=== PATIENT | female | born 1955 | race Two or more races ===

== ENCOUNTER → 2017-08-04 11:00 | Outpatient (CLI) | payer BC, SELFPAY ==
[2017-08-04 13:25] LABS: Basophils % 0.3 % (0.1-2.0); Eosinophils # 0.2 K/mm3 (0.0-0.4); Eosinophils % 2.2 % (0.1-12.0); Hematocrit 38.6 % (37.0-47.0); Hemoglobin 12.6 g/dL (12.2-16.2); Lymphocytes # 1.8 K/mm3 (0.7-4.5); Lymphocytes % 24.5 K/mm3 (10-50); Mean Corpuscular HGB Conc 32.7 g/dL (31.8-35.4); Mean Corpuscular Hemoglobin 28.6 pg (27.0-31.2); Mean Corpuscular Volume 87.6 fl (81-99); Mean Platelet Volume 8.3 fl (7.4-10.4); Monocytes # 0.4 K/mm3 (0.1-1.0); Monocytes % 5.6 % (1.7-9.3); Neutrophils # 4.9 K/mm3 (1.8-7.8); Neutrophils % 67.4 % (37.0-80.0); Platelet Count 257 K/mm3 (142-424); Red Cell Distribution Width 13.5 % (11.5-17.5); White Blood Count 7.2 K/mm3 (4.8-10.8)
[2017-08-04 13:40] LABS: Alanine Aminotransferase 26 U/L (12-78); Albumin Level 4.1 gm/dL (3.4-5.0); Albumin/Globulin Ratio 1.6 (1.1-1.8); Alkaline Phosphatase 93 U/L (46-116); Amylase 51 U/L (25-125); Anion Gap 10.5 mEq/L (5-15); Aspartate Amino Transferase 18 U/L (15-37); Bilirubin,Total 0.3 mg/dL (0.2-1.0); Blood Urea Nitrogen 18 mg/dL (7-18); C-Reactive Protein 0.3 mg/L (0.0-0.9); Calcium 8.9 mg/dL (8.5-10.1); Carbon Dioxide 29 mmol/L (21.0-32.0); Chloride 106 mmol/L (98-107); Creatinine,Serum 0.61 mg/dL (0.55-1.02); Estimated Glomerular Filt Rate > 60 ml/min (>60); GFR (African American) > 60 ML/MIN (>60); Globulin 2.6 gm/dl (1.3-3.2); Glucose 97 mg/dL (74-106); Lipase 225 u/L (73-393); Potassium 4.5 mmoL/L (3.5-5.1); Sodium 141 mmol/L (136-145); Total Protein,Serum 6.7 gm/dL (6.4-8.2)
[2017-08-04 15:00] LABS: Erythrocyte Sedimentation Rate 12 mm/hr (0-30)
[2017-08-04 15:13] LABS: Microscopic, Urine URINE MICROSCOPIC (MICROSCOPIC)
[2017-08-04 15:17] LABS: Appearance,Urine CLEAR (Clear); Bilirubin,Urine Negative (Negative); Blood, Urine Negative (Negative); Color,Urine YELLOW (Yellow); Glucose,Urine (UA) Negative (Negative); Ketones,Urine Negative (Negative); Leukocyte Esterase,Urine Negative (Negative); Nitrate,Urine Negative (Negative); Protein,Urine Negative (Negative); Urobilinogen,Urine 0.2 EU/dl (0.2)
[2017-08-04 15:25] LABS: Bacteria,Urine 1+ /lpf; Squamous Epithelial Cell,Urine Occasional #/hpf (0-5); WBC,Urine Occasional #/hpf (0-3)
== END ==
PROVIDERS: Visit Provider Emergency Medicine
DX: M54.9 Dorsalgia, unspecified (principal); M54.5 Low back pain; R10.9 Unspecified abdominal pain
CPT/HCPCS: 80053; 81001; 82150; 83690; 85025; 85651; 86140

== ENCOUNTER → 2017-08-19 08:31 | Outpatient (CLI) | payer BC, SELFPAY ==
--- NOTE | 2017-08-19 08:46 | US_ITS ---
US abdomen complete HISTORY: Pain, flank pain ORDERING PHYSICIAN: Florentin Cochran MD PATIENT AGE: 62 years COMPARISON: None FINDINGS: PANCREAS:Unremarkable. No obvious mass or abnormal fluid collection. No ductal dilatation LIVER:No focal liver lesions demonstrated. Homogeneous echogenicity. No intrahepatic biliary ductal dilatation evident RIGHT KIDNEY:Unremarkable. Normal size and echogenicity. No hydronephrosis LEFT KIDNEY:Unremarkable. No hydronephrosis. Normal size and echogenicity. GALLBLADDER:No gallstones, gallbladder wall thickening, pericholecystic fluid, or biliary dilatation. Folds are present in the gallbladder is a normal variant AORTA:No evidence of aneurysmal dilatation. SPLEEN:Unremarkable. Normal size and echogenicity ASCITES:None demonstrated. IMPRESSION: Negative abdominal ultrasound
[2017-08-19 12:21] LABS: Chol/HDL Ratio 3.9 (1-3.5); Cholesterol 279 mg/dL (140-200); HDL Cholesterol 72 mg/dL (29-89); LDL Cholesterol 195 mg/dL (0-130); Triglycerides 61 mg/dL (30-200); VLDL Cholesterol 12 mg/dL (0-40)
== END ==
PROVIDERS: Family Provider Emergency Medicine; PCP Emergency Medicine; Visit Provider Emergency Medicine
DX: Z13.220 Encounter for screening for lipoid disorders (principal); R10.9 Unspecified abdominal pain
CPT/HCPCS: 36415; 76700; 80061

== ENCOUNTER → 2017-09-11 07:36 | Outpatient (CLI) | payer BC, SELFPAY ==
--- NOTE | 2017-09-11 07:37 | XR_ITS ---
XR chest 2V HISTORY: Bilateral rib pain ITS.REASON: rib pain ORDERING PHYSICIAN: Florentin Cochran MD PATIENT AGE: 62 years COMPARISON: 01/24/2016 FINDINGS: The cardiomediastinal silhouette and pulmonary vascularity are within normal limits. The lungs are clear without infiltrates, suspicious nodules, or pleural effusions. There is a calcified granuloma in the right upper lobe No acute bony abnormalities. IMPRESSION: No change with no acute finding
== END ==
PROVIDERS: PCP Emergency Medicine; Visit Provider Emergency Medicine
DX: R07.81 Pleurodynia (principal)
CPT/HCPCS: 71046

== ENCOUNTER → 2017-09-16 07:39 | Outpatient (CLI) | payer BC, SELFPAY ==
--- NOTE | 2017-09-16 07:44 | CT_ITS ---
CT chest wo con HISTORY: Bilateral rib pain, chest pain ORDERING PHYSICIAN: Florentin Cochran MD PATIENT AGE: 62 years TECHNIQUE: Axial images obtained. Sagittal and coronal reformatted images are also generated and reviewed. CONTRAST: None COMPARISON: None FINDINGS: There are few small nodes present in the mediastinum and axilla and consuelo. No dominant adenopathy is evident. Normal heart size. The pericardium is slightly thickened anteriorly. No evidence of aortic aneurysm. Calcified granuloma is present in the right upper lobe. No suspicious pulmonary nodules are apparent. No effusions or infiltrates. No rib fractures or lytic or blastic changes of the ribs evident. No pleural effusion or pleural thickening. There are mild degenerative changes in the thoracic spine. Upper abdominal images are unremarkable. IMPRESSION: 1. There is mild pericardial thickening suggesting a trace pericardial effusion which may be confirmed with echocardiogram. 2. Otherwise negative CT chest without contrast.
== END ==
PROVIDERS: Family Provider Emergency Medicine; PCP Emergency Medicine; Visit Provider Emergency Medicine
DX: R07.81 Pleurodynia (principal)
CPT/HCPCS: 71250

== ENCOUNTER → 2017-09-29 10:33 | Outpatient (CLI) | payer BC, SELFPAY ==
--- NOTE | 2017-09-29 10:36 | CA_ITS ---
PROCEDURE: 2-D M-mode and color Doppler study INDICATIONS FOR THE TEST: Chest pain+ COPD Heart Murmur Tobacco Smoking Palpitations Fatigue Syncope Edema Hypertension Diabetes Mellitus Rheumatic Fever SOB TAYLOR+Obesity Hyperlipidemia+ Family History HD+ Additional History pericardial effusion seen in CT chest PATIENT INFORMATION HEIGHT: 66 WEIGHT: 180 GENDER: Female B/P: 132/87 2-D/M-MODE INTERPRETATION: 2-D MEASUREMENTS OBSERVED VALUES IN CMS Right Ventricular Dimension (RVDd) 2.6 Interventricular Septum (Thickness)(IVsd) 0.9 Left Ventricular Internal Dimensions(LVIDd) 4.8 Left Ventricular Posterior Wall (Thickness)(LVPWd) 0.9 Aortic Root 2.7 Aortic Cusp Separation 2.1 Left Atrial Dimensions (LAD) 2.9 2D 1. Left atrium is mildly enlarged, left ventricle is normal size, visually estimated ejection fraction 50% with no obvious regional wall motion abnormality. 2. The right atrium and right ventricle are mildly enlarged with normal contractility. 3. The aortic valve is minimally thickened and fibrosed. 4. The mitral and tricuspid valve leaflets are minimally thickened. 5. The pulmonic valve is poorly visualized 6. There is trivial pericardial effusion noted. DOPPLER INTERROGATION: Doppler interrogation of the aortic, mitral and tricuspid valvular presence of mild mitral and tricuspid regurgitation, tricuspid regurgitant jet velocity is insufficient for calculation of the right ventricular systolic pressure, grade 1 diastolic dysfunction seen with tissue Doppler evidence of raised left atrial pressure. CONCLUSION: 1. Mild biatrial enlargement, normal left ventricular size, visually estimated ejection fraction 50% with no obvious regional wall motion abnormality. 2. Mildly enlarged right ventricle with normal contractility 3. Grade 1 diastolic dysfunction seen with tissue Doppler evidence of raised left atrial pressure. 4. Mild mitral and tricuspid regurgitation 5. Trivial pericardial effusion noted.
== END ==
PROVIDERS: Family Provider Emergency Medicine; PCP Emergency Medicine; Visit Provider Physician Assistant
DX: I31.3 Pericardial effusion (noninflammatory) (principal)
CPT/HCPCS: 93306

== ENCOUNTER → 2017-10-20 12:04 | Outpatient (POV) | payer BC, SELFPAY | PROVIDERS: Family Provider Emergency Medicine; PCP Emergency Medicine; Visit Provider Nurse Practitioner Acute Care | DX: Z00.00 Encounter for general adult medical examination without abnormal findings (principal) ==

== ENCOUNTER → 2017-10-20 14:29 | Outpatient (POV) | payer BC, SELFPAY ==
[2017-10-20 14:34] VITALS: BP 150/90; PULSE 98; RESP 20; TEMP 36.2; O2SAT 99; BMI 31.4
--- NOTE | 2017-10-20 16:27 | HMH.PAINSOAP ---
[facility] Pain Management SOAP Note Subjective:: Patient is a very pleasant 62-year-old white female who presents today for reevaluation after we started her on gabapentin 300 mg 3 times a day. Patient is doing extremely well with this patient states that it has helped her pain symptoms quite a bit. Patient denies any side effects to this. Patient has pain in her neck radiating down to both arms. She also has myofascial pain and some trigger points palpable on her bilateral trapezius. She also has bilateral knee pain as well as SI joint pain on the right side. 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 Patient rates her pain as 5 out of 10 today. Patient states that she is doing well with her gabapentin. Patient is interested in injective therapies. Patient does have ulcerative colitis which impacts her life greatly. Patient states that her pain is dull and achy at times. ROS General: no recent weight change, no fever, no sleep disturbances Respiratory: no cough, no shortness of air, no recurring pulmonary infections Cardiovascular/Peripheral Vascular: No chest pain, No palpitations, no edema, no shortness of breath. Gastrointestinal: no incontinence, normal bowel movements reported Genitourinary: no incontinence Musculoskeletal: Neck pain, bilateral arm pain, bilateral knee pain, right SI joint pain, myofascial pain Psychiatric: normal mood/ affect, [denies depression], [denies anxiety] Neurological: [denies weakness in extremities], [denies balance issues] Objective:: Physical Exam General: Alert and oriented x3, no acute distress, pleasant and cooperative, [on room air] Lungs: Resps E/U, Symmetrical chest expansion, Eyes: PERRL Musculoskeletal: Flexion and extension of cervical and lumbar spine somewhat guarded secondary to pain, deep tendon reflexes normal, strength in upper and lower extremities [5/5], antalgic gait noted, positive Bharati's test on the right side Neurological: speech clear, 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 I believe that this would be very beneficial for her. Her gabapentin 300 mg 3 times a day. Patient's tried and failed physical therapy along with home stretching exercises. Patient also failed anti-inflammatories and medication. I will follow-up with this patient after her cervical epidural. This note was dictated using voice recognition software and may contain errors or omissions
--- NOTE | 2017-10-20 16:30 | P.CONS_ITS ---
[facility] Pain Management SOAP Note Subjective:: Patient is a very pleasant 62-year-old white female who presents today for reevaluation after we started her on gabapentin 300 mg 3 times a day. Patient is doing extremely well with this patient states that it has helped her pain symptoms quite a bit. Patient denies any side effects to this. Patient has pain in her neck radiating down to both arms. She also has myofascial pain and some trigger points palpable on her bilateral trapezius. She also has bilateral knee pain as well as SI joint pain on the right side. 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 Patient rates her pain as 5 out of 10 today. Patient states that she is doing well with her gabapentin. Patient is interested in injective therapies. Patient does have ulcerative colitis which impacts her life greatly. Patient states that her pain is dull and achy at times. ROS General: no recent weight change, no fever, no sleep disturbances Respiratory: no cough, no shortness of air, no recurring pulmonary infections Cardiovascular/Peripheral Vascular: No chest pain, No palpitations, no edema, no shortness of breath. Gastrointestinal: no incontinence, normal bowel movements reported Genitourinary: no incontinence Musculoskeletal: Neck pain, bilateral arm pain, bilateral knee pain, right SI joint pain, myofascial pain Psychiatric: normal mood/ affect, [denies depression], [denies anxiety] Neurological: [denies weakness in extremities], [denies balance issues] Objective:: Physical Exam General: Alert and oriented x3, no acute distress, pleasant and cooperative, [ on room air] Lungs: Resps E/U, Symmetrical chest expansion, Eyes: PERRL Musculoskeletal: Flexion and extension of cervical and lumbar spine somewhat guarded secondary to pain, deep tendon reflexes normal, strength in upper and lower extremities [5/5], antalgic gait noted, positive Bharati's test on the right side 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 I believe that this would be very beneficial for her. Her gabapentin 300 mg 3 times a day. Patient's tried and failed physical therapy along with home stretching exercises. Patient also failed anti-inflammatories and medication. I will follow-up with this patient after her cervical epidural. This note was dictated using voice recognition software and may contain errors or omissions
--- NOTE | 2018-02-12 08:34 | PC.PHONENOTE ---
called in rx for Gabapentin 300mg TID with 2 refills to [facility]
== END ==
PROVIDERS: Family Provider Emergency Medicine; PCP Emergency Medicine; Visit Provider Clinical Nurse Specialist Family Health
DX: M50.10 Cervical disc disorder with radiculopathy, unspecified cervical region (principal); M25.562 Pain in left knee; M25.561 Pain in right knee
CPT/HCPCS: 99212

== ENCOUNTER → 2017-11-04 13:33 | Outpatient (CLI) | payer BC, SELFPAY ==
--- NOTE | 2017-11-04 13:36 | CT_ITS ---
CT head/brain wo con HISTORY: ITS.REASON: Headaches ORDERING PHYSICIAN: Florentin Cochran MD PATIENT AGE: 62 years COMPARISON: None TECHNIQUE: Axial images obtained without contrast. Brain and bone windows reviewed. All CT scans at the facility use one or more dose reduction, viz: automated exposure control; ma/kV adjustment per patient size (including targeted exams where dose is matched to indication; i.e. head); or iterative reconstruction technique. FINDINGS: No midline shift, mass effect, intracranial hemorrhage, hydrocephalus, or extra-axial fluid collection is evident. The calvarium has an unremarkable appearance. No mastoid effusion. No sinus air-fluid levels.. IMPRESSION: Negative CT head without contrast. No acute finding.
== END ==
PROVIDERS: Family Provider Emergency Medicine; PCP Emergency Medicine; Visit Provider Emergency Medicine
DX: R51 Headache (principal)
CPT/HCPCS: 70450

== ENCOUNTER → 2018-05-18 13:03 | Outpatient (POV) | payer BC, SELFPAY ==
[2018-05-18 13:47] VITALS: BP 131/88; PULSE 100; RESP 18; O2SAT 98; BMI 29.0
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
== END ==
PROVIDERS: Family Provider Emergency Medicine; PCP Emergency Medicine; Visit Provider Clinical Nurse Specialist Family Health
DX: M46.1 Sacroiliitis, not elsewhere classified (principal); M50.10 Cervical disc disorder with radiculopathy, unspecified cervical region; M79.18 Myalgia, other site; M25.562 Pain in left knee; M25.561 Pain in right knee; S32.001A Stable burst fracture of unspecified lumbar vertebra, initial encounter for closed fracture; V89.2XXA Person injured in unspecified motor-vehicle accident, traffic, initial encounter
CPT/HCPCS: 99213

== ENCOUNTER → 2018-05-28 16:27 | Outpatient (CLI) | payer SELFPAY ==
[2018-05-29 16:03] LABS: Amphetamine/Metha Screen,Urine Negative ng/mL (<1000); Barbiturates Screen,Urine Negative ng/mL (<200); Benzodiazepines Screen,Urine Negative ng/mL (<200); Cannabinoid Screen,Urine Negative ng/mL (<50); Cocaine Screen,Urine Negative ng/mL (<300); Methadone Screen,Urine Negative ng/mL (<300); Opiate Screen,Urine Negative ng/mL (<300); Phencyclidine Screen,Urine Negative ng/mL (<25)
[2018-06-03 13:12] LABS: Alprazolam Negative (Cutoff=100); Benzodiazepines Positive ng/mL (Cutoff=100); Clonazepam Positive (.); Flurazepam Negative (Cutoff=100); Lorazepam Negative (Cutoff=100); Midazolam Negative (Cutoff=100); Temazepam Negative (Cutoff=100); Triazolam Negative (Cutoff=100)
[2018-06-03 13:28] LABS: Clonazepam Confirm 412 ng/mL (Cutoff=100)
== END ==
PROVIDERS: PCP Emergency Medicine; Visit Provider Emergency Medicine
DX: Z79.899 Other long term (current) drug therapy (principal)
CPT/HCPCS: 80305; 80346

== ENCOUNTER 2018-06-15 11:00 | Outpatient (RCR) | payer BC, SELFPAY | END 2018-06-15 11:05 | disposition home or self-care (01) | LOC: OT 11:00 | PROVIDERS: Family Provider Emergency Medicine; PCP Emergency Medicine; Visit Provider Orthopaedic Surgery Orthopaedic Trauma | DX: S52.501A Unspecified fracture of the lower end of right radius, initial encounter for closed fracture (principal) | CPT/HCPCS: 97035; 97110; 97140; 97165 ==

== ENCOUNTER → 2018-08-31 10:50 | Outpatient (POV) | payer MEDICARE, BC, SELFPAY ==
[2018-08-31 11:20] VITALS: BP 135/86; PULSE 93; RESP 18; O2SAT 98; BMI 29.0
--- NOTE | 2018-08-31 12:30 | P.CONS_ITS ---
[facility] Pain Management SOAP Note Subjective:: Patient is a pleasant 63-year-old white female who presents today for follow-up. She has recently slipped on the ice agitating her low back and sciatic pain. She is doing well other than this. She is currently on gabapentin 300 mg 1 p.o. 3 times daily she denies side effects medication. She rates her pain today a 6 out of 10. Patient has had epidural injections in the past. She is interested in pursuing when given the exacerbation of pain she recently has had. ROS General: no recent weight change, no fever, no sleep disturbances Respiratory: no cough, no shortness of air, no recurring pulmonary infections Cardiovascular/Peripheral Vascular: No chest pain, No palpitations, no edema, no shortness of breath. Gastrointestinal: no incontinence, normal bowel movements reported Genitourinary: no incontinence Musculoskeletal: Back pain, leg pain Psychiatric: normal mood/ affect Neurological: [denies weakness in extremities], [denies balance issues] Objective:: Physical Exam General: Alert and oriented x3, no acute distress, pleasant and cooperative, [on room air] Lungs: Resps E/U, Symmetrical chest expansion, Eyes: PERRL Musculoskeletal: Flexion and extension of lumbar spine somewhat guarded secondary to pain, deep tendon reflexes normal, strength in upper and lower extremities [5/5], [abnormal gait noted] 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 3 times daily. I will follow-up with the patient after her injection and reassess her symptoms at that time. She is not on any anticoagulation therapy. She continues a home stretching program. Dr. Morales has reviewed this note and agrees with this plan of care. This note was dictated using voice recognition software and may contain errors or omissions
== END ==
PROVIDERS: PCP Emergency Medicine; Visit Provider Clinical Nurse Specialist Family Health
DX: M51.16 Intervertebral disc disorders with radiculopathy, lumbar region (principal); M50.10 Cervical disc disorder with radiculopathy, unspecified cervical region; M79.18 Myalgia, other site; S32.001A Stable burst fracture of unspecified lumbar vertebra, initial encounter for closed fracture
CPT/HCPCS: 99213

== ENCOUNTER → 2018-09-01 14:57 | Outpatient (CLI) | payer MEDICARE, BC, SELFPAY ==
--- NOTE | 2018-09-01 15:00 | XR_ITS ---
XR ankle LT min 3V HISTORY: ITS.REASON: left ankle pain ORDERING PHYSICIAN: Florentin Cochran MD PATIENT AGE: 63 years Comparison: None FINDINGS: There is a mildly displaced oblique fracture involving the distal aspect of the fibula. Fracture exits medially at the level of the ankle joint. There is minimal lateral displacement of the distal fracture fragment by approximately 3 mm. There is overlying soft tissue swelling. Ankle mortise appears very slightly widened IMPRESSION: Mildly displaced oblique fracture of the distal fibula
--- NOTE | 2018-09-01 15:00 | MM_ITS ---
MM Dig screening mamm BI w/CAD ORDERING PHYSICIAN : Florentin Cochran MD PATIENT AGE: 63 years GENDER: Female COMPARISON: June 2015. 2011 Ultrasound right breast January 2016 & June 2015. INDICATION: Routine screening mammogram. No hormones. No new complaints. Noncontributory family history. Previous percutaneous biopsy central left breast . TECHNIQUE: Standard CC and MLO images were obtained. R2 CAD reviewed. Additional axillary cc view bilateral FINDINGS: Moderately dense breast tissue most evident towards upper-outer quadrant of right and left breast. Mammography slightly limited particularly in these areas of increased breast density. There is some Minimal nodularity in these areas of denser breast noted bilaterally. But no definitive or dominant mass. Nonetheless there is some nodularity which would benefit from ultrasound of the breast bilaterally, with attention upper-outer quadrant. . Ultrasound is a useful compliment,/augment to mammography in breast or areas of increased density Particularly since it most likely benign small slight irregular contour nodular density was noted at 9 o'clock position outside [facility] ultrasound studies from 2014, 2015. This warrants ultrasound follow-up & evaluation again at this time.. RIGHT BREAST: No definitive findings. Only question some subtle nodularity in the area of dense breast tissue upper-outer quadrant. Recommend ultrasound to again evaluate this area (. Should be compared to the 2015 and 2014 outside ultrasound) LEFT BREAST: A small area of nodularity there is a dense breast tissue upper-outer quadrant left breast seen on the cc view only. Suspect merely summation of glandular tissue since it dissipates on the axillary cc view, however this area would benefit from ultrasound survey. IMPRESSION: ........... .. Denser breast tissue towards upper-outer quadrant of left breast bilaterally. Mammography appears fairly stable since prior studies with only questionable nodularity in these regions. However Recommend bilateral breast ultrasound to augment mammography in these areas of denser breast (Previous 2015 & 2014 outside ultrasound demonstrated was not appear to be benign solid nodule or semisolid nodule upper outer quadrant left breast. Although felt to be benign, this would benefit from ultrasound follow-up at this time. Should be specifically addressed on this follow-up ultrasound) BI-RADS Category: 0 Need Additional Imaging Evaluation RECOMMENDED FOLLOW-UP: IMM - IMMEDIATE FOLLOW-UP RECOMMENDED Bilateral breast ultrasound (A letter has been sent to the patient regarding results of the study.)
== END ==
PROVIDERS: PCP Emergency Medicine; Visit Provider Emergency Medicine
DX: Z12.31 Encounter for screening mammogram for malignant neoplasm of breast (principal); M25.572 Pain in left ankle and joints of left foot
CPT/HCPCS: 73610; 77067

== ENCOUNTER → 2018-09-02 10:34 | Outpatient (CLI) | payer MEDICARE, BC, SELFPAY ==
[2018-09-02 11:16] LABS: INR 1.01 (0.9-1.1); Prothrombin Time 10.4 seconds (9.4-11.8)
--- NOTE | 2018-09-02 11:25 | XR_ITS ---
XR chest 2V HISTORY: Shortness of air ITS.REASON: SOA ORDERING PHYSICIAN: Florentin Cochran MD PATIENT AGE: 63 years COMPARISON: 09/11/2017 FINDINGS: The cardiomediastinal silhouette and pulmonary vascularity are within normal limits. The lungs are clear without infiltrates, suspicious nodules, or pleural effusions. There is a calcified granuloma in the right upper lobe. There has been interval development of moderate wedging of T6 and T7 with kyphosis IMPRESSION: 1. Wedging of T6 and T7 with kyphosis which has developed since 09/11/2017. 2. Otherwise negative
--- NOTE | 2018-09-02 11:25 | XR_ITS ---
XR foot LT min 3V HISTORY: Lateral foot pain ITS.REASON: POPLITEAL BLOCK ORDERING PHYSICIAN: Florentin Cochran MD PATIENT AGE: 63 years COMPARISON: 2019 FINDINGS: Artifact is present from a overlying wrap. Mildly displaced oblique fracture involves the distal fibula as described in the ankle report. There is a well-circumscribed calcific density at the talonavicular region dorsally and may represent an old avulsion fracture. There is an enthesophyte at the Achilles insertion. No acute foot fracture is evident. IMPRESSION: Distal fibular fracture. No acute foot fracture
[2018-09-02 11:33] LABS: Basophils % 0.3 % (0.1-2.0); Eosinophils # 0.1 K/mm3 (0.0-0.4); Eosinophils % 1.4 % (0.1-12.0); Hematocrit 35.4 % (37.0-47.0); Hemoglobin 11.4 g/dL (12.2-16.2); Lymphocytes # 1.6 K/mm3 (0.7-4.5); Lymphocytes % 25.6 % (10-50); Mean Corpuscular HGB Conc 32.2 g/dL (31.8-35.4); Mean Corpuscular Hemoglobin 28.6 pg (27.0-31.2); Mean Corpuscular Volume 88.8 fl (81-99); Mean Platelet Volume 7.4 fl (7.4-10.4); Monocytes # 0.4 K/mm3 (0.1-1.0); Monocytes % 5.8 % (1.7-9.3); Neutrophils % 66.9 % (37.0-80.0); Platelet Count 238 K/mm3 (142-424); Red Blood Count 3.99 M/mm3 (4.20-5.40); Red Cell Distribution Width 14.2 % (11.5-17.5)
[2018-09-02 12:55] LABS: Alanine Aminotransferase 48 U/L (12-78); Albumin Level 3.9 gm/dL (3.4-5.0); Albumin/Globulin Ratio 1.4 (1.1-1.8); Alkaline Phosphatase 91 U/L (46-116); Anion Gap 13.2 mEq/L (5-15); Aspartate Amino Transferase 23 U/L (15-37); Bilirubin,Total 0.3 mg/dL (0.2-1.0); Blood Urea Nitrogen 12 mg/dL (7-18); Calcium 9.2 mg/dL (8.5-10.1); Carbon Dioxide 29 mmol/L (21.0-32.0); Chloride 106 mmol/L (98-107); Creatinine,Serum 0.73 mg/dL (0.55-1.02); Estimated Glomerular Filt Rate 81 ml/min (>60); GFR (African American) 98 ML/MIN (>60); Globulin 2.7 gm/dl (1.3-3.2); Glucose 107 mg/dL (74-106); Potassium 4.2 mmoL/L (3.5-5.1); Sodium 144 mmol/L (136-145); Total Protein,Serum 6.6 gm/dL (6.4-8.2)
[2018-09-03 09:33] LABS: Vitamin D 25 Hydroxy 55.5 ng/mL (30.0-100.0)
== END ==
PROVIDERS: Visit Provider Emergency Medicine
DX: S22.009A Unspecified fracture of unspecified thoracic vertebra, initial encounter for closed fracture (principal)
CPT/HCPCS: 36415; 71046; 73630; 80053; 82652; 85025; 85610; 93005

== ENCOUNTER → 2018-09-18 13:18 | Outpatient (CLI) | payer MEDICARE, BC, SELFPAY ==
--- NOTE | 2018-09-18 13:19 | US_ITS ---
US breast LT complete INDICATION: Follow-up abnormal mammogram, mammographic asymmetry ORDERING PHYSICIAN: Florentin Cochran MD PATIENT AGE: 63 years COMPARISON: 09/01/2018 TECHNIQUE: Ultrasound left breast performed along with axilla FINDINGS: No cystic or solid abnormalities demonstrated. Small nodes are present in the left axilla.. The asymmetric density noted on the mammogram may be related to fibroglandular tissue. IMPRESSION: No sonographic abnormality evident. Recommend follow-up mammogram of left breast in 6 months for the asymmetric density BI-RADS Category: 3 Probably Benign Finding Short Term Follow-up all RECOMMENDED FOLLOW-UP: 6M - 6 MONTH FOLLOW-UP (A letter has been sent to the patient regarding results of the study.)
--- NOTE | 2018-09-18 13:19 | US_ITS ---
US breast RT complete INDICATION: Follow-up abnormal mammogram and prior abnormal breast ultrasound ORDERING PHYSICIAN: Florentin Cochran MD PATIENT AGE: 63 years COMPARISON: 02/13/2016, 09/01/2018 TECHNIQUE: Right breast ultrasound with axilla FINDINGS: There is a nonspecific subtle area of decreased echogenicity in the 12:00 region of the right breast at 4 x 2 mm. At 6:00 there is a 4 mm hypoechoic nodule in the represent a cyst. At 9:00 there is a 5 x 4 mm hypoechoic nodule. Slightly larger previously measuring 3 x 3 mm. There is some irregularity of the posterior margin however there is enhanced through transmission of sound. This may represent a complex cyst. At 10:00 there is a 13 x 5 mm area of decreased echogenicity possibly related to asymmetric fibroglandular tissue and somewhat elongate on the sagittal image. IMPRESSION: Complex cyst at 9:00 at 5 x 4 mm slightly larger from 02/13/2016. Hypoechoic area 10:00 region of asymmetric fibroglandular tissue. No convincing evidence of malignancy. Recommend 6 month mammographic and sonographic follow-up of the right breast and 6 month mammographic follow-up of left breast for the areas of asymmetric density BI-RADS Category: 3 Probably Benign Finding Short Term Follow-up RECOMMENDED FOLLOW-UP: 6M - 6 MONTH FOLLOW-UP (A letter has been sent to the patient regarding results of the study.)
== END ==
PROVIDERS: PCP Emergency Medicine; Visit Provider Emergency Medicine
DX: R92.8 Other abnormal and inconclusive findings on diagnostic imaging of breast (principal)
CPT/HCPCS: 76641

== ENCOUNTER → 2018-09-21 13:35 | Outpatient (CLI) | payer MEDICARE, BC, SELFPAY ==
--- NOTE | 2018-09-21 13:40 | XR_ITS ---
XR ankle wt bearing LT min 3V HISTORY: Follow-up surgery/ORIF ITS.REASON: post-op ORDERING PHYSICIAN: Gretchen Steinberg DPM PATIENT AGE: 63 years Comparison: 09/04/2018 FINDINGS: Bone plate remains in place stabilizing an oblique distal fibular fracture which is in good alignment. Fracture line is still visible. IMPRESSION: Overall no change good alignment status post ORIF distal fibular fracture
== END ==
PROVIDERS: PCP Emergency Medicine; Visit Provider Podiatrist
DX: Z98.890 Other specified postprocedural states (principal); S82.892D Other fracture of left lower leg, subsequent encounter for closed fracture with routine healing; M25.572 Pain in left ankle and joints of left foot
CPT/HCPCS: 73610

== ENCOUNTER → 2018-10-19 11:02 | Outpatient (CLI) | payer MEDICARE, BC, SELFPAY ==
--- NOTE | 2018-10-19 11:12 | XR_ITS ---
XR ankle wt bearing LT min 3V HISTORY: Follow-up surgery ITS.REASON: post-op ORDERING PHYSICIAN: Florentin Cochran MD PATIENT AGE: 63 years Comparison: 09/21/2018 FINDINGS: The posterior splint has been removed. Lateral bone plate remains in place along the distal fibula. There is good alignment in the previously noted fracture line is less apparent with some overlying callus formation. The superior screw is not felt to be purchased within the bone. IMPRESSION: Good alignment healing distal fibular fracture status post ORIF as described above The superior screw the bone plate does not appear to be purchased within the bone
--- NOTE | 2018-10-19 11:12 | XR_ITS ---
XR DEXA axial skeleton HISTORY: ITS.REASON: screening/ankle rx ORDERING PHYSICIAN: Florentin Cochran MD PATIENT AGE: 63 years COMPARISON: None FINDINGS: The BMD measured at the AP Spine L1-L4 is 1.165 g/cm squared with a T score of -0.1. This is considered Normal according to the World Health Organization criteria. Fracture risk is Low. Treatment is advised. IMPRESSION: Normal bone density with low fracture risk. Suggest follow-up exam September 2020
== END ==
PROVIDERS: PCP Emergency Medicine; Referring Provider Podiatrist; Visit Provider Emergency Medicine
DX: Z98.890 Other specified postprocedural states (principal); S82.892A Other fracture of left lower leg, initial encounter for closed fracture; Z78.0 Asymptomatic menopausal state
CPT/HCPCS: 73610; 77080; 93005

== ENCOUNTER → 2018-11-19 15:06 | Outpatient (CLI) | payer MEDICARE, BC, SELFPAY ==
--- NOTE | 2018-11-19 15:10 | XR_ITS ---
XR ankle wt bearing LT min 3V HISTORY: Follow-up surgery/ORIF/fracture ITS.REASON: post-op ORDERING PHYSICIAN: Gretchen Steinberg DPM PATIENT AGE: 63 years Comparison: 10/19/2018 FINDINGS: There is a lateral bone plate at the distal fibula with good alignment. Fracture lines are not well delineated. There are mild degenerative changes at the ankle joint. On the oblique view there is a small subcortical area of decreased density involving the lateral aspect of the talar dome possibly due to subarticular cyst. Continued follow-up recommended. IMPRESSION: Good alignment status post ORIF distal fibula as described above. Small subcortical lucency of the talar dome laterally which may be due to developing subarticular cyst
== END ==
PROVIDERS: PCP Emergency Medicine; Visit Provider Podiatrist
DX: Z98.890 Other specified postprocedural states (principal)
CPT/HCPCS: 73610

== ENCOUNTER 2018-12-29 10:00 | Outpatient (RCR) | payer MEDICARE, BC, SELFPAY ==
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
== END 2018-12-29 10:05 | disposition home or self-care (01) ==
LOC: PT 10:00
PROVIDERS: Visit Provider Podiatrist
DX: Z98.890 Other specified postprocedural states (principal); S82.892A Other fracture of left lower leg, initial encounter for closed fracture
CPT/HCPCS: 97110; 97140; 97163

== ENCOUNTER → 2019-03-19 12:55 | Outpatient (CLI) | payer MEDICARE, BC, SELFPAY ==
--- NOTE | 2019-03-19 | US_ITS ---
PROCEDURE: MM DIG MAMM BI DX W/CAD RIGHT BREAST ULTRASOUND COMPLETE WITH AXILLA LEFT BREAST ULTRASOUND COMPLETE WITH AXILLA CLINICAL INDICATION: 6 mth f/u due after 03/18/19 COMPARISON: [facility] MM Dig screening mamm BI w/CAD from 09/01/2018 BREASTRT US breast RT complete from 09/18/2018 BREASTLT US breast LT complete from 09/18/2018 US BREAST RT COMPLETE from 03/19/2019 US BREAST LT COMPLETE from 03/19/2019 TECHNIQUE: Standard images obtained along with problem solving views of both breasts and bilateral breast ultrasound FINDINGS: There average to dense fibroglandular tissue. Right breast: There was an asymmetric density in the superior aspect of the right breast which did appear to compress out as fibroglandular tissue. Asymmetric density also noted laterally and centrally on the CC view. These areas also appear to compress out is fibroglandular tissue. Right breast ultrasound: No change in the 4 mm hypoechoic nodule at 12 o'clock. There are some low level internal echoes. Stability favors benign etiology. No change in the 3 mm hypoechoic nodule at 6 o'clock. No change in the 5 mm cyst at 9 o'clock. There is a hypoechoic nodule at 10 o'clock which is oval in nature measuring 13 x 5 mm which is unchanged. As mentioned previously this may even represent fibroglandular tissue having similar imaging characteristics to tissue just superficial to this region. Left breast: Scattered areas of asymmetric density as previously described. A biopsy clip is present in the superior aspect of the left breast as before. There was a 7 mm nodular opacity noted in the superior aspect of the left breast probably unchanged on the spot compression view. No malignant appearing mass or malignant-appearing microcalcification. Left breast ultrasound: Unremarkable. IMPRESSION: Overall no significant change. No convincing evidence of malignancy. Recommend continued six-month follow-up to confirm 1 year stability BI-RAD Category: 2 Benign Finding(s) FOLLOW-UP: 6M 6 Month Follow-up (A letter has been sent to the patient regarding results of the study.) Dictated by: Hayes Muller MD 03/23/2019 08:22 Signed by: <Electronically signed by Hayes Muller MD in [place]> 03/23/2019 08:22
== END ==
PROVIDERS: PCP Emergency Medicine; Visit Provider Emergency Medicine
DX: R92.8 Other abnormal and inconclusive findings on diagnostic imaging of breast; N63.10 Unspecified lump in the right breast, unspecified quadrant; N63.20 Unspecified lump in the left breast, unspecified quadrant
CPT/HCPCS: 76641; 77066

== ENCOUNTER → 2019-08-30 12:36 | Outpatient (POV) | payer MEDICARE, BC, SELFPAY | PROVIDERS: Visit Provider Nurse Practitioner Family | DX: Z00.00 Encounter for general adult medical examination without abnormal findings (principal) ==

== ENCOUNTER → 2019-09-13 06:57 | Outpatient (CLI) | payer MEDICARE, BC, SELFPAY ==
--- NOTE | 2019-09-13 | CA_ITS ---
APPROVED REPORT Exam: Pharmacologic Technologist: liana woody, Ht: 5 ft 6 in Wt: 185 lbs BSA: 1.93 m2 Indications: CP, SOB Medical History Medical History: HTN, Hyperlipidemia Medications: Gabapentin,,,,, ClonAZEPAM,,,,, Lipitor,,,,, Homer,,,,, Tizanidine,,,,, MesALAMINE,,,,, Sertaline,,,,, Allergies: Fluconazole, Azathripine Cardiac Risk Factors: FHX of CAD, HTN, Hyperlipidemia Stress Test Details Test: LEXISCAN HR Resting HR: 68 bpm Max Heart Rate (APMHR): 157 bpm Max HR Achieved: 98 bpm Target HR (85% APMHR): 133 bpm % of APMHR: 62 BP Resting BP: 132/82 mmHg Max BP: 144/77 mmHg ECG Clinical Exercise duration: 04:00 min Highest Stage Achieved: Exercise capacity: 1.0 METs Stress ECG Conclusion Lexiscan completed only pt complaint was headache at peak in fusion resolved in recovery. Pt had occ pvc, less than 1.5mm ST depression. Images to follow Test Summary REST 10:16 . . 68 . 132/ 82 . . Stage 1 01:00 . . 87 . . . . Stage 2 01:00 . . 97 . 136/ 75 . . Stage 3 01:00 . . 93 . 144/ 77 . . Stage 4 01:00 . . 89 . 132/ 80 . Stop exercise at 04:00 RECOVERY 01:00 . . 88 . 133/ 76 . . RECOVERY 02:00 . . 83 . 133/ 84 . . RECOVERY 03:00 . . 79 . 141/ 80 . . RECOVERY 04:00 . . 79 . 135/ 83 . . RECOVERY 04:03 . . 79 . 135/ 83 . . Electronically signed by : Cale Uribe, 09/15/2019 06:58:06
--- NOTE | 2019-09-13 06:57 | NM_ITS ---
APPROVED REPORT Exam: Nuclear Stress Test Indication: Chest pain, SOB, HTN, High cholesterol, Family history Patient Location: Outpatient Stress Tech: China Steele CT Tech:Carlita Chavez, ARRT, RT (R)(N) Ht: 5 ft 6 in Wt: 185 lbs Bra Size: 42C HR: 56 bpm BP: 132/82 mmHg BSA: 1.93 m2 BMI: 29.8 History: Chest pain, SOB, HTN, High cholesterol, Family history Procedure: Patient received a 0.4 mg of intravenous Lexiscan, resting heart rate 56 bpm, resting blood pressure 132/82 mmHg, with Lexiscan maximum heart rate achived was 88 bpm which is Less than 85 % of the maximum predicted heart rate and blood pressure was 133/76 mmHg. With Lexiscan, patient denied any complaint of chest pain. Electrocardiogram Resting electrocardiogram showed sinus rhythm, with Lexiscan there is less than 1.[address] segment depression noted from the baseline EKG. The EKG portion of the Lexiscan Myoview is nondiagnostic. Cardiac Stress and Resting SPECT Images: Cardiac Stress and Resting SPECT images were obtained using technetium 99m Myoview 32.2 mCi stress and 10.26 mCi at rest. Gated SPECT for analysis of segmental wall motion and calculation of the ejection fraction also done. Cardiac stress and resting SPECT images show a fixed defect involving the anteroapical wall with normal contracted gated SPECT is likely secondary to soft tissue attenuation, no reversible ischemia seen. Computer derived ejection fraction is over 65% with no regional wall motion abnormality, right ventricle is normal size and contractility. Conclusion: 1. The EKG portion of the Lexiscan Myoview is nondiagnostic. 2. No scintigraphic evidence of reversible ischemia seen, computer derived ejection fraction is over 65% with no regional wall motion abnormality, right ventricle is normal size and contractility. 3. Likely normal Lexiscan Myoview study. Electronically signed by : Cale Uribe, 09/15/2019 06:59:54
--- NOTE | 2019-09-13 07:45 | HMH.ITSHM ---
Current Home Medications as stated by this patient Lesly Rodas or sales account representative. []TIZANIDINE SERTRALINE OXYCODONE MESALAMINE GABAPENTIN CLONAZEPAM ATORVASTATIN
== END ==
PROVIDERS: PCP Emergency Medicine; Visit Provider Emergency Medicine
DX: I20.9 Angina pectoris, unspecified (principal); R07.89 Other chest pain
CPT/HCPCS: 78451; 93017; A9502; J2785

== ENCOUNTER → 2019-09-30 15:10 | Outpatient (CLI) | payer MEDICARE, BC, SELFPAY ==
--- NOTE | 2019-09-30 15:10 | US_ITS ---
PROCEDURE: MM DIG MAMM BI DX W/CAD Digital Breast Tomosynthesis Included CLINICAL INDICATION: 6 mth f/u due 08/2019 Follow-up abnormal mammogram and ultrasound COMPARISON: [facility] MM Dig screening mamm BI w/CAD from 09/01/2018 MM DIG MAMM BI DX W/CAD from 03/19/2019 US BREAST RT COMPLETE from 03/19/2019 US BREAST LT COMPLETE from 03/19/2019 US BREAST RT COMPLETE from 09/30/2019 US BREAST LT COMPLETE from 09/30/2019 TECHNIQUE: Standard images performed along with 3D tomosynthesis, spot compression views, and bilateral breast FINDINGS: Heterogeneously dense fibroglandular tissue. No malignant appearing mass or malignant-appearing microcalcification. In the central aspect of the right breast there is a well-circumscribed 3-4 mm nodular opacity which may correspond to a cyst noted on the ultrasound. Right breast ultrasound: 3 mm cyst at 12 o'clock, hypoechoic 4 mm nodule at 6 o'clock which may be due to a complex cyst. Nonspecific hypoechoic 6 mm area at 9 o'clock which could be due to a complex cyst or fibroglandular tissue. Previously there was a 13 x 5 mm hypoechoic nodule at 10 o'clock which is not demonstrated on today's exam. Left mammogram: There is a 6 mm nodular opacity in the upper outer aspect of the left breast.. This does not appear significantly changed. This is better demonstrated on the tomographic images. No sonographic correlate. A clip is present in the upper inner aspect of the left breast. Left-sided breast ultrasound. No discrete solid or cystic nodules evident. On the previous exam there was a complex hypoechoic nodule at 2 o'clock at 5 mm. This was not demonstrated on today's exam. Would suggest that the patient come back for second-look ultrasound at the 2 o'clock region of the left breast at no additional charge to confirm a stable nodule at this area. This can be done at the patient's leisure IMPRESSION: Probably benign findings. Nodular density in the upper outer left breast is somewhat better demonstrated on the mammogram possibly due to the technique and 3D tomography but not demonstrated on the ultrasound. Suggest patient come back for a 2nd look at no additional charge. BI-RAD Category: 3 Probably Benign Finding Short Term Follow-up FOLLOW-UP: IMM Immediate Follow-up Recommended (A letter has been sent to the patient regarding results of the study.) Dictated by: Hayes Muller MD 10/01/2019 13:39 Electronically signed by Hayes Muller MD in [place] 10/01/2019 13:39
== END ==
PROVIDERS: PCP Emergency Medicine; Visit Provider Emergency Medicine
DX: R92.8 Other abnormal and inconclusive findings on diagnostic imaging of breast (principal)
CPT/HCPCS: 76641; 77062; 77066; G0279

== ENCOUNTER → 2019-10-06 08:30 | Outpatient (CLI) | payer MEDICARE, BC, SELFPAY ==
--- NOTE | 2019-10-06 08:40 | US_ITS ---
PROCEDURE: REPEAT VIEW US CLINICAL INDICATION: Follow-up left breast nodule, second-look ultrasound COMPARISON: BREASTLT US breast LT complete from 09/18/2018 US BREAST RT COMPLETE from 03/19/2019 US BREAST LT COMPLETE from 03/19/2019 US BREAST RT COMPLETE from 09/30/2019 US BREAST LT COMPLETE from 09/30/2019 FINDINGS: No discrete lesion is evident. There is a ill-defined hypoechoic area at 2 o'clock probably related to fibroglandular tissue. No suspicious mass evident IMPRESSION: Probably benign findings. Would recommend six-month ultrasound and mammographic follow-up of the left breast to confirm continued stability. BI-RADS category 3 probably benign. Recommend six-month left-sided mammographic and sonographic follow-up Dictated by: Hayes Muller MD 10/07/2019 10:13 Electronically signed by Hayes Muller MD in [place] 10/07/2019 10:13
== END ==
PROVIDERS: PCP Emergency Medicine; Visit Provider Emergency Medicine
DX: R92.8 Other abnormal and inconclusive findings on diagnostic imaging of breast (principal)

== ENCOUNTER → 2020-02-09 08:54 | Outpatient (CLI) | payer MEDICARE, BC, SELFPAY ==
--- NOTE | 2020-02-09 09:00 | CA_ITS ---
APPROVED REPORT Steeple Jack: BRENNA Laterality: Bilateral Study Quality: Good Indications: bruit Doppler Spectral Velocity Analysis dICA (R) 151.30/36.30 cm/s dICA (L) 91.90/36.10 cm/s Roopa (R) 117.30/41.70 cm/s Roopa (L) 81.10/31.60 cm/s pICA (R) 89.50/28.60 cm/s pICA (L) 93.40/28.20 cm/s dCCA (R) 132.60/33.20 cm/s dCCA (L) 105.70/35.60 cm/s pCCA (R) 147.70/31.30 cm/s pCCA (L) 143.60/36.80 cm/s Vert (R) 53.50/20.70 cm/s Vert (L) 59.20/22.10 cm/s ICA/CCA 1.10 ICA/CCA 0.90 Findings The right carotid arterial system appeared to be normal without stenosis of the bulb or internal carotid artery. The left carotid arterial system appeared to be normal without stenosis of the bulb or internal carotid artery. Antegrade flow seen bilateral vertebral arteries. Conclusion No increased velocities to suggest hemodynamically significant stenosis in either internal carotid artery. Electronically signed by : Hayes Muller MD 02/09/2020 15:55:45
== END ==
PROVIDERS: PCP Emergency Medicine; Visit Provider Emergency Medicine
DX: R09.89 Other specified symptoms and signs involving the circulatory and respiratory systems (principal)
CPT/HCPCS: 93880

== ENCOUNTER → 2020-05-02 14:08 | Outpatient (CLI) | payer MEDICARE, BC, SELFPAY ==
--- NOTE | 2020-05-02 14:09 | US_ITS ---
PROCEDURE: MM DIG MAMM BI DX W/CAD Digital Breast Tomosynthesis Included CLINICAL INDICATION: abn mamm Follow-up abnormal mammogram COMPARISON: MG [facility] MM Dig screening mamm BI w/CAD from 09/01/2018 MG MM DIG MAMM BI DX W/CAD from 03/19/2019 US US BREAST LT COMPLETE from 03/19/2019 US US BREAST RT COMPLETE from 09/30/2019 MG MM DIG MAMM BI DX W/CAD from 09/30/2019 US US BREAST LT COMPLETE from 09/30/2019 US US BREAST LT COMPLETE from 05/02/2020 US US BREAST RT COMPLETE from 05/02/2020 TECHNIQUE: Standard CC and MLO images and 3D Tomosynthesis was obtained. R2 CAD reviewed. FINDINGS: Average fibroglandular tissue.. Right breast: In the central aspect of the right breast on the tomogram images there is a 4 mm nodular density not significantly changed. Asymmetric fibroglandular tissue noted in the upper outer aspect of the right breast. This is not significantly changed. The nodular density noted in the central aspect of the right breast on the MLO view may be medial and not significantly changed. Right breast ultrasound: There are several hypoechoic benign-appearing nodules and may represent complicated cysts measuring 4 mm at 12 o'clock, 5 mm at 6 o'clock near the nipple, 6 mm at 10 o'clock.. At 10 o'clock there does appear to be 2 small cysts measuring 5 and 3 mm which are not readily demonstrated on the previous study. Left breast: Biopsy clip is present in the superior aspect of the left breast. There is a question of a nodule in the inferior aspect of the left breast on the tomogram images. This area however appears to compress out on the focal spot compression views. Asymmetric density is noted in the medial aspect of the left breast which is not significantly changed and may be due to asymmetric fibroglandular tissue. No sonographic correlate. Benign-appearing nodular opacity present in the lateral aspect of the left breast as seen on the CC view at 5 mm possibly corresponding to 1 of the hypoechoic areas Left breast ultrasound: Several small cysts are once again noted. Hypoechoic area at 2 o'clock is noted at 5 mm not significantly changed from a older study of 03/19/2019 but not demonstrated on the most recent ultrasound of 09/30/2019. At 2 o'clock there is a hypoechoic region measuring 9 mm not readily demonstrated on the previous exam is possibly due to an area of asymmetric fibroglandular tissue. Hypoechoic nodules present 3 o'clock measuring 6 mm. This has enhanced through transmission of sound but increased echogenicity centrally possibly due to a lymph node.. There is enhanced through transmission of sound. A fibroadenoma is an additional consideration. This is wider than tall. No suspicious nodules are demonstrated. IMPRESSION: Probably benign findings. Recommend continued six-month sonographic and mammographic follow-up due to new areas of mild concern. BI-RAD Category: 3 Probably Benign Finding Short Term Follow-up FOLLOW-UP: 6M 6Month Follow-up (A letter has been sent to the patient regarding results of the study.) Dictated by: Hayes Muller MD 05/08/2020 09:23 Hayes Muller MD in [place] 05/08/2020 09:23
== END ==
PROVIDERS: PCP Emergency Medicine; Visit Provider Emergency Medicine
DX: R92.8 Other abnormal and inconclusive findings on diagnostic imaging of breast (principal)
CPT/HCPCS: 76641; 77062; 77066; G0279

== ENCOUNTER → 2020-11-07 12:54 | Outpatient (CLI) | payer MEDICARE, BC, SELFPAY ==
--- NOTE | 2020-11-07 12:54 | US_ITS ---
PROCEDURE: MM DIG MAMM BI DX W/CAD Digital Breast Tomosynthesis Included CLINICAL INDICATION: 6 mth f/u Follow-up abnormal mammogram COMPARISON: MG MM DIG MAMM BI DX W/CAD from 03/19/2019 MG MM DIG MAMM BI DX W/CAD from 09/30/2019 US US BREAST LT COMPLETE from 05/02/2020 US US BREAST RT COMPLETE from 05/02/2020 MG MM DIG MAMM BI DX W/CAD from 05/02/2020 US US BREAST RT COMPLETE from 11/07/2020 US US BREAST LT COMPLETE from 11/07/2020 TECHNIQUE: Standard images obtained with tomography and spot-compression views along with bilateral breast ultrasound FINDINGS: Right breast: No malignant appearing mass or malignant-appearing microcalcification. Asymmetric density once again noted in the medial aspect of the right breast which appears somewhat less prominent on the tomographic images. Right breast ultrasound: Small cyst at 12 o'clock 5 x 4 mm. 5 mm cyst at 6 o'clock. 7 x 3 mm hypoechoic nodule at 10 o'clock unchanged. Additional 7 mm hypoechoic nodule 10 o'clock outer unchanged. Left breast: Average fibroglandular tissue. Biopsy clip in the upper aspect of the left breast. No malignant appearing mass or malignant-appearing microcalcification. Left breast ultrasound: Stable 3 mm hypoechoic nodule at 12 o'clock, 3 mm hypoechoic nodule at 1 o'clock, 4 mm hypoechoic nodule at 2 o'clock. 8 x 4 mm hypoechoic nodule at 3 o'clock. 6 mm hypoechoic nodule at 10 o'clock. No new nodules are evident. IMPRESSION: Stable appearance of the breast both mammographically and sonographically. No convincing evidence of malignancy. BI-RAD Category: 2 Benign Finding(s) FOLLOW-UP: 1YR 1 Year Follow-up. Suggest 1 year follow-up. Would also recommend ultrasound at that time to follow the nodules in both breasts which are not readily apparent mammographically. (A letter has been sent to the patient regarding results of the study.) Dictated by: Hayes Muller MD 11/10/2020 13:52 Hayes Muller MD in [place] 11/10/2020 13:52
== END ==
PROVIDERS: PCP Emergency Medicine; Visit Provider Emergency Medicine
DX: R92.8 Other abnormal and inconclusive findings on diagnostic imaging of breast (principal)
CPT/HCPCS: 76641; 77062; 77066; G0279

== ENCOUNTER → 2021-01-09 08:41 | Outpatient (POV) | payer MEDICARE, BC, SELFPAY | PROVIDERS: Visit Provider Dermatology | DX: Z00.00 Encounter for general adult medical examination without abnormal findings (principal) ==

== ENCOUNTER → 2021-01-23 12:40 | Outpatient (POV) | payer MEDICARE, BC, SELFPAY | PROVIDERS: Visit Provider Dermatology | DX: Z00.00 Encounter for general adult medical examination without abnormal findings (principal) ==

== ENCOUNTER → 2021-08-16 12:17 | Outpatient (CLI) | payer MEDICARE, SELFPAY ==
[2021-08-16 13:35] LABS: Basophils % 0.5 % (0.1-2.0); Eosinophils # 0.1 K/mm3 (0.0-0.4); Eosinophils % 1.1 % (0.1-12.0); Hematocrit 38.5 % (37.0-47.0); Hemoglobin 12.7 g/dL (12.2-16.2); Lymphocytes # 1.9 K/mm3 (0.7-4.5); Lymphocytes % 26.7 % (10-50); Mean Corpuscular HGB Conc 32.9 g/dL (31.8-35.4); Mean Corpuscular Hemoglobin 30.5 pg (27.0-31.2); Mean Corpuscular Volume 92.6 fl (81-99); Mean Platelet Volume 8.3 fl (7.4-10.4); Monocytes # 0.5 K/mm3 (0.1-1.0); Monocytes % 6.9 % (1.7-9.3); Neutrophils # 4.7 K/mm3 (1.8-7.8); Neutrophils % 64.7 % (37.0-80.0); Platelet Count 232 K/mm3 (142-424); Red Blood Count 4.15 M/mm3 (4.20-5.40); Red Cell Distribution Width 14.5 % (11.5-17.5); White Blood Count 7.2 K/mm3 (4.8-10.8)
[2021-08-16 13:42] LABS: Alanine Aminotransferase 29 U/L (12-78); Albumin Level 4.8 g/dl (3.5-5.0); Albumin/Globulin Ratio 2.5 (1.1-1.8); Alkaline Phosphatase 57 U/L (38-126); Anion Gap 11.8 mEq/L (5-15); Aspartate Amino Transferase 31 U/L (14-36); Bilirubin,Total 0.4 mg/dl (0.2-1.3); Blood Urea Nitrogen 22 mg/dl (7-17); Calcium 9.8 mg/dl (8.4-10.2); Carbon Dioxide 32 mmol/L (22.0-30.0); Chloride 99 mmol/L (98-107); Estimated Glomerular Filt Rate 84 ml/min (>60); GFR (African American) 102 ML/MIN (>60); Globulin 1.9 g/dL (1.3-3.2); Glucose 84 mg/dl (74-100); Potassium 4.8 mmoL/L (3.5-5.1); Sodium 138 mmol/L (136-145); Total Protein,Serum 6.7 g/dl (6.3-8.2)
[2021-08-16 13:47] LABS: C-Reactive Protein 0.9 mg/L (0-4)
[2021-08-16 13:59] LABS: 25-OH Vitamin D, Total 55.9 ng/mL (30-100)
[2021-08-16 14:03] LABS: Erythrocyte Sedimentation Rate 17 mm/hr (0-30)
[2021-08-16 14:34] LABS: Vitamin B12 912 pg/mL (239-931)
[2021-08-16 15:10] LABS: Iron 86 ug/dL (37-170)
[2021-08-16 15:19] LABS: Total Iron Binding Capacity 320 ug/dL (265-497)
[2021-08-16 15:46] LABS: Ferritin 43.8 ng/ml (11.1-264)
== END ==
PROVIDERS: PCP Emergency Medicine; Visit Provider Nurse Practitioner Family
DX: K51.90 Ulcerative colitis, unspecified, without complications (principal); E66.3 Overweight; Z68.29 Body mass index [BMI] 29.0-29.9, adult
CPT/HCPCS: 36415; 80053; 82306; 82607; 82728; 83540; 83550; 85025; 85651; 86140

== ENCOUNTER → 2021-11-13 12:41 | Outpatient (CLI) | payer MEDICARE, SELFPAY ==
--- NOTE | 2021-11-13 12:47 | MM_ITS ---
PROCEDURE INFORMATION: Exam: MG Bilateral Screening 3D Mammography Exam date and time: 11/13/2021 12:52 PM Age: 66 years old Clinical indication: Screening examination TECHNIQUE: Imaging protocol: Bilateral Screening tomosynthesis and 2D mammography including computer-aided detection (CAD) when performed. COMPARISON: 1. MG MM DIG MAMM BI DX W/CAD 11/07/2020 1:33 PM 2. MG MM DIG MAMM BI DX W/CAD 05/02/2020 2:13 PM 3. MG MM DIG MAMM BI DX W/CAD 09/30/2019 3:27 PM FINDINGS: MAMMOGRAPHY: Breast composition: The breasts are heterogeneously dense, which may obscure small masses. Mass: No suspicious masses. Architectural distortion: No suspicious distortion. Calcifications: No suspicious calcifications. Asymmetric density: None. Skin thickening: None. Axillary adenopathy: None. IMPRESSION: No mammographic evidence of malignancy. Annual screening is recommended unless otherwise clinically indicated. ASSESSMENT: BI-RADS Category 1: Negative
== END ==
PROVIDERS: PCP Emergency Medicine; Visit Provider Emergency Medicine
DX: Z12.31 Encounter for screening mammogram for malignant neoplasm of breast (principal)
CPT/HCPCS: 77063; 77067

== ENCOUNTER → 2021-11-15 06:23 | Outpatient (CLI) | payer MEDICARE, SELFPAY ==
--- NOTE | 2021-11-15 06:25 | CA_ITS ---
APPROVED REPORT EXAM: Comprehensive 2D, Doppler, and color-flow Echocardiogram Customer Care Manager: Nora Levin RVT Ht: 5 ft 6 in Wt: 184lbs BSA: 1.93 BP: 132/88 mmHg Indications: CP,SOA,HLD 2D Dimensions LVOT 1.92 cm (M/F) 1.5-2.5 LA Volume 32.30 mL LA Volume Index 16.73 mL/m2 (M/F) 16-34 M-Mode Dimensions RVDd 3.47 cm (0.9-2.6) LA Diam 3.61 cm (1.9-4.0) LVDd 3.05 cm (3.5-5.7) Ao Diam 3.03 cm (2.0-3.7) LVDs 1.54 cm (3.5-5.7) IVSd 0.77 cm (0.6-1.1) PWd 1.26 cm (0.6-1.1) EF (Teich) 82.10% FS 49.50% EDV (Teich) 36.40 mL TAPSE 1.90 (<1.7) ESV (Teich) 6.50 mL LV Diastology E Decel Time 190.00 (160-240 msec) E/A Ratio 1.1 MED E' 5.20 (< 7 cm/sec) E'/MED E' Ratio 17.10 (>14) LAT E' 6.80 (<10 cm/sec) E/LAT E' Ratio 13.07 (>14) Aortic Valve AO Peak GR. 3.50 mmHg Mitral Valve MV E Max Mert. 89.00 (40-130 cm/s) MV A Velocity 79.00 (40-130 cm/s) E/A Ratio 1.13 MV Decel. Time 190.00 (160-240 ms) MV PHT 56.00 ms Pulmonary Valve PV Peak Velocity 58.00 (50-150 cm/s) Tricuspid Valve TR P. Velocity 112.00 cm/s RAP Estimate 10.00 mmHg RVSP 15.10 mmHg Left Ventricle Left atrium is moderately enlarged, left ventricle is normal size, mild concentric left ventricular hypertrophy, estimated ejection fraction 55% with no regional wall motion abnormality, grade 2 diastolic dysfunction seen with tissue Doppler evidence of raise left atrial pressure. Right Ventricle Right atrium and right ventricle are mildly enlarged with normal contractility. Aortic Valve Aortic valve is minimally thickened and calcified without aortic stenosis or aortic insufficiency. Mitral Valve Mitral valve is grossly normal, there is trace mitral regurgitation. Tricuspid Valve Tricuspid grossly normal, there is trace tricuspid regurgitation, tricuspid regurgitation jet velocity inadequate for calculation of the right ventricular systolic pressure Pulmonic Valve Pulmonic valve is poorly visualized. Great Vessels Aortic root is normal size. Inferior vena cava is normal size with normal inspiratory collapse. Pericardium Trivial pericardial effusion noted. Conclusion 1. Biatrial enlargement, normal left ventricular size, mild concentric left ventricular hypertrophy, estimated ejection fraction 55% with no regional wall motion abnormality, grade 2 diastolic dysfunction seen with tissue Doppler evidence of raise left atrial pressure. 2. Mildly enlarged right ventricle with normal contractility. 3. Trace mitral and tricuspid regurgitation. 4. Trivial pericardial effusion noted. 5. Inferior vena cava is normal size with normal inspiratory collapse. Electronically signed by : Cale Uribe MD 11/16/2021 11:17:19
--- NOTE | 2021-11-15 06:25 | NM_ITS ---
APPROVED REPORT Exam: Nuclear Stress Test Indication: chest pain Patient Location: Outpatient Stress Tech: Jazmin MORALES Tech:Daysi MckeonMATTHEW RT(R)(N) Ht: 5 ft 6 in Wt: 180 lbs Bra Size: 42c HR: 52 bpm BP: 111/70 mmHg BSA: 1.91 m2 BMI: 29.0 Procedure: Patient exercised on Brennan protocol 8:00 minutes and sec, resting heart rate 52 bpm, resting blood pressure 111/70 mmHg, with exercise maximum heart rate achived was 131 bpm which is 85 % of the maximum predicted heart rate and blood pressure was 178/74 mmHg. Test was stopped due to leg fatigue and soa. Patient denied any complaint of chest pain. Patient has good exercise capacity, achieved 10.1 METs of workload on treadmill, the blood pressure response to exercise was Adequate. Electrocardiogram Resting electrocardiogram shows sinus rhythm, with exercise there is less than 1.[address] segment depression noted from the baseline EKG. The EKG portion of the exercise Myoview is negative for ischemia. Cardiac Stress and Resting SPECT Images: Cardiac Stress and Resting SPECT images were obtained using technetium 99m Myoview 31.4 mCi stress and 10.10 mCi at rest. Gated SPECT for analysis of segmental wall motion and calculation of the ejection fraction also done. Cardiac stress and rest SPECT images show uniform myocardial activity without segmental perfusion abnormality, computer derived ejection fraction is 52% with no regional wall motion abnormality, right ventricle is normal size and contractility. Conclusion: 1. The EKG portion of the exercise Myoview is negative for ischemia, patient has good exercise capacity achieved 10.1 METs of workload on treadmill, the blood pressure response to exercise was adequate, there was no exercise-induced chest discomfort. 2. No scintigraphic evidence of reversible ischemia seen, computer derived ejection fraction is 52% with no regional wall motion abnormality, right ventricle is normal size and contractility. 3. Normal exercise Myoview study. Electronically signed by : Cale Uribe MD 11/16/2021 08:53:38
--- NOTE | 2021-11-15 06:25 | CA_ITS ---
APPROVED REPORT Exam: Exercise Treadmill Technologist: Jazmin Francois, Ht: 5 ft 6 in Wt: 184 lbs BSA: 1.93 m2 HR: 52 bpm BP: 111/70 mmHg Rhythm: sinus cassie, otherwise normal Medical History Medical History: HTN, Hyperlipidemia Medications: Gabapentin,,,,, PERCOCET,,,,, BisOPROLOL Fumarate,,,,, SuLFASALAZINE,,,,, Fluoxetine,,,,, Sertraline,,,,, AtorvaASTATIN,,,,, Garlic,,,,, OmeGA 3,,,,, ClonAZapam,,,,, Cardiac Risk Factors: HTN, Hyperlipidemia Stress Test Details Test: Brennan HR Resting HR: 60 bpm Max Heart Rate (APMHR): 155.886135 bpm Max HR Achieved: 131 bpm Target HR (85% APMHR): 131.442040 bpm % of APMHR: 84.52 Recovery HR: 116 bpm BP Resting BP: 105/75 mmHg Max BP: 178/74 mmHg Recovery BP: 178.0/74.0 mmHg ECG Resting ECG: sinus cassie, otherwise normal Clinical Exercise duration: 08:01 min Highest Stage Achieved: Exercise capacity: 10.1 METs Stress ECG Conclusion Pt exercised total of 8:00 on brennan protocol into stage 3. No CP noted. Frequent isolated PVCs raina bigeminal patterm, occasional PAC. Normal ST response to exercise. No ischemia, EKG chnages but frequent V ectopy in bigeminal pattern. Myoview images reported separately. Test Summary REST . . . . . . . Sitting REST . . . . . . . Standing REST 04:13 0.0 0.0 60 . 105/ 75 . . Stage 1 01:00 10.0 1.7 81 . . . . Stage 1 02:00 10.0 1.7 89 . . . . Stage 1 03:00 10.0 1.7 94 . 142/ 70 . . Stage 2 01:00 12.0 2.5 103 . . . . Stage 2 02:00 12.0 2.5 108 . . . . Stage 2 03:00 12.0 2.5 116 . 160/ 70 . . Stage 3 . . . . . . . Myoview Injected Stage 3 01:00 14.0 3.4 124 . . . . Stage 3 02:00 14.0 3.4 130 . . . . Stage 3 02:01 14.0 3.4 130 . . . Stop exercise at 08:01 RECOVERY 01:00 0.0 0.0 107 . . . . RECOVERY 02:00 0.0 0.0 90 . 178/ 74 . . RECOVERY 03:00 0.0 0.0 75 . 178/ 74 . . RECOVERY 04:00 0.0 0.0 68 . 166/ 76 . . RECOVERY 05:00 0.0 0.0 66 . 145/ 73 . . RECOVERY 06:00 0.0 0.0 69 . 140/ 73 . . RECOVERY 06:31 0.0 0.0 66 . 140/ 73 . . Electronically signed by : Cale Uribe MD 11/16/2021 08:51:32
== END ==
PROVIDERS: PCP Emergency Medicine; Visit Provider Internal Medicine
DX: R07.89 Other chest pain
CPT/HCPCS: 78452; 93017; 93306; A9502

== ENCOUNTER → 2022-09-13 13:15 | Outpatient (CLI) | payer MEDICARE, SELFPAY ==
[2022-09-13 14:21] LABS: Basophils # 0.1 K/mm3 (0-0.2); Basophils % 0.9 % (0.1-2.0); Eosinophils # 0.1 K/mm3 (0.0-0.4); Eosinophils % 1.4 % (0.1-12.0); Hematocrit 36.9 % (37.0-47.0); Hemoglobin 12.5 g/dL (12.2-16.2); Lymphocytes # 1.7 K/mm3 (0.7-4.5); Lymphocytes % 26.9 % (10-50); Mean Corpuscular HGB Conc 33.8 g/dL (31.8-35.4); Mean Corpuscular Hemoglobin 31.6 pg (27.0-31.2); Mean Corpuscular Volume 93.6 fl (81-99); Mean Platelet Volume 8.6 fl (7.4-10.4); Monocytes # 0.5 K/mm3 (0.1-1.0); Monocytes % 7.4 % (1.7-9.3); Neutrophils # 3.9 K/mm3 (1.8-7.8); Neutrophils % 63.3 % (37.0-80.0); Platelet Count 229 K/mm3 (142-424); Red Blood Count 3.95 M/mm3 (4.20-5.40); Red Cell Distribution Width 14.2 % (11.5-17.5); White Blood Count 6.1 K/mm3 (4.8-10.8)
[2022-09-13 15:17] LABS: Alanine Aminotransferase 25 U/L (12-78); Albumin Level 4.7 g/dl (3.5-5.0); Albumin/Globulin Ratio 2.1 (1.1-1.8); Alkaline Phosphatase 64 U/L (38-126); Anion Gap 6.8 mEq/L (5-15); Aspartate Amino Transferase 35 U/L (14-36); Bilirubin,Total 0.4 mg/dl (0.2-1.3); Blood Urea Nitrogen 17 mg/dl (7-17); Calcium 9.3 mg/dl (8.4-10.2); Carbon Dioxide 31 mmol/L (22.0-30.0); Chloride 106 mmol/L (98-107); Chol/HDL Ratio 2.4 (1-3.5); Cholesterol 159 mg/dl (140-200); Estimated Glomerular Filt Rate 84 ml/min (>60); GFR (African American) 101 ML/MIN (>60); Globulin 2.2 g/dL (1.3-3.2); Glucose 99 mg/dl (74-100); HDL Cholesterol 67 mg/dl (40-60); Potassium 4.8 mmoL/L (3.5-5.1); Sodium 139 mmol/L (136-145); Total Protein,Serum 6.9 g/dl (6.3-8.2); Triglycerides 50 mg/dl (30-150); VLDL Cholesterol 10 mg/dL (0-40)
[2022-09-13 15:28] LABS: Direct LDL Cholesterol 68.92 mg/dL (100-129)
[2022-09-13 15:34] LABS: Free T4 (Free Thyroxine) 0.97 ng/dl (0.78-2.19)
[2022-09-13 15:47] LABS: Thyroid Stimulating Hormone 1.22 uIU/mL (0.465-4.68)
[2022-09-27 00:08] LABS: 1,25 Dihydroxy Vitamin D 58 pg/mL (.); 1,25-Dihydroxy, Vitamin D-2 <10 pg/mL (.); 1,25-Dihydroxy, Vitamin D-3 55 pg/mL (.)
== END ==
PROVIDERS: PCP Emergency Medicine; Visit Provider Emergency Medicine
DX: E78.2 Mixed hyperlipidemia (principal); I49.3 Ventricular premature depolarization; M54.32 Sciatica, left side; E66.3 Overweight; Z68.29 Body mass index [BMI] 29.0-29.9, adult
CPT/HCPCS: 36415; 80053; 80061; 82652; 84439; 84443; 85025

== ENCOUNTER → 2022-09-18 14:59 | Outpatient (CLI) | payer MEDICARE, SELFPAY ==
--- NOTE | 2022-09-18 15:05 | XR_ITS ---
FINAL REPORT CLINICAL HISTORY: Pain in leg where she has a Plate FINDINGS: LEFT TIBIA FIBULA 2 views were obtained. There are postoperative changes in the distal fibula. The hardware appears intact. There is no acute fracture or dislocation. There are mild degenerative changes of the knee and ankle. There is no soft tissue abnormality. IMPRESSION: Postoperative change with no acute abnormality identified. Hardware appears intact. Reviewed, Interpreted and Dictated by Tj Gilliam III, MD Transcribed by Anila Banks Authenticated and . [facility]
== END ==
PROVIDERS: PCP Emergency Medicine; Visit Provider Emergency Medicine
DX: M79.605 Pain in left leg (principal)
CPT/HCPCS: 73590

== ENCOUNTER → 2022-09-23 14:43 | Outpatient (CLI) | payer MEDICARE, SELFPAY ==
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
== END ==
PROVIDERS: PCP Emergency Medicine; Visit Provider Emergency Medicine
DX: M54.9 Dorsalgia, unspecified (principal); M54.6 Pain in thoracic spine; M54.50 Low back pain, unspecified
CPT/HCPCS: 72146; 72148; 76376

== ENCOUNTER → 2022-11-22 08:22 | Outpatient (CLI) | payer MEDICARE, SELFPAY ==
--- NOTE | 2022-11-22 08:23 | MM_ITS ---
PROCEDURE INFORMATION: Exam: MG Bilateral Screening 3D Mammography Exam date and time: 11/22/2022 8:16 AM Age: 67 years old Clinical indication: Screening examination TECHNIQUE: Imaging protocol: Bilateral Screening tomosynthesis and 2D mammography including computer-aided detection (CAD) when performed. COMPARISON: 1. MG MM DIG SCREENING MAMM BI W/CAD 11/13/2021 12:52 PM 2. MG MM DIG MAMM BI DX W/CAD 11/07/2020 1:33 PM FINDINGS: MAMMOGRAPHY: Breast composition: The breasts are heterogeneously dense, which may obscure small masses. Mass: None. Architectural distortion: None. Calcifications: No suspicious calcifications. Asymmetric density: None. Skin thickening: None. Axillary adenopathy: None. IMPRESSION: No mammographic evidence of malignancy. Annual screening is recommended unless otherwise clinically indicated. ASSESSMENT: BI-RADS Category 1: Negative
--- NOTE | 2022-11-22 08:23 | XR_ITS ---
FINAL REPORT CLINICAL HISTORY: . post menopausal screening FINDINGS: Using L1-4, the bone mineral density of the spine is 1.049 g/cm2, corresponding to T-score of 0.0. Using the left hip, the bone mineral density of the femoral neck is 0.901 g/cm2, corresponding to a T-score of 0.5. Using the right hip: The bone mineral density of the femoral neck is 0.891 g/cm2, corresponding to a T-score of 0.4. IMPRESSION: Normal bone mineral density of the lumbar spine and hips. NOTE: T-score: Standard deviation compared with peak bone mass of young adult mean. *Following the recommendations of the International Society of Bone densitometry, classification of hip BMD is based on the lower of two T-scores; total hip or femoral neck. Reviewed, Interpreted and Dictated by Tj Gilliam III, MD Transcribed by Gina Ellswroth Authenticated and [facility]
== END ==
PROVIDERS: PCP Emergency Medicine; Visit Provider Emergency Medicine
DX: Z78.0 Asymptomatic menopausal state (principal); Z12.31 Encounter for screening mammogram for malignant neoplasm of breast
CPT/HCPCS: 77063; 77067; 77080

== ENCOUNTER → 2023-03-13 12:38 | Outpatient (POV) | payer MEDICARE, SELFPAY ==
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
[2023-03-13 13:32] VITALS: BP 120/78; PULSE 75; RESP 18; O2SAT 97; BMI 28.8
== END ==
PROVIDERS: PCP Emergency Medicine; Visit Provider Nurse Practitioner Family
DX: M54.50 Low back pain, unspecified; G89.29 Other chronic pain; M79.605 Pain in left leg; M25.551 Pain in right hip; M25.552 Pain in left hip; M51.34 Other intervertebral disc degeneration, thoracic region; M48.062 Spinal stenosis, lumbar region with neurogenic claudication; M51.16 Intervertebral disc disorders with radiculopathy, lumbar region
CPT/HCPCS: 99202; G0463

== ENCOUNTER 2023-04-01 07:37 | Day surgery (SDC) | payer MEDICARE, SELFPAY ==
[2023-04-01 08:03] VITALS: BP 113/68; PULSE 65; RESP 18; TEMP 36.9; O2SAT 97; BMI 25.0
[2023-04-01 08:18] VITALS: BP 116/68; PULSE 66; RESP 18; O2SAT 98
[2023-04-01 08:19] VITALS: BP 116/68; PULSE 66; RESP 18; O2SAT 98
[2023-04-01 08:25] VITALS: BP 115/56; PULSE 65; RESP 18; O2SAT 97
--- NOTE | 2023-04-01 08:38 | P.PCN_ITS ---
Procedure Date: 04/01/23 Time: 08:00 Anesthesiologist:: Brandon Chavez CRNA Complications:: None Pre-procedure Diagnosis:: Degenerative disc disease lumbar spine multilevels. Lumbar radiculopathy. Left hip and leg radicular symptoms. Disc bulge L4-5, L5-S1. Post-procedure Diagnosis:: Same. Indications for Procedure:: Patient is a very pleasant 67-year-old female comes our clinic today for left L4-5, L5-S1 transforaminal epidural steroid injection. I have seen this patient in the past for intralaminar epidural steroid injections at a different facility. She had some moderate improvement in terms of her overall low back pain as well as bilateral hip and leg radicular symptoms. However, her symptoms have isolated to the left hip and leg. She rates her pain 7/10. Procedure Details:: Details of the procedure were explained to the patient. The patient was taken the procedure room placed in the prone position. The area of the lumbar spine was cleansed using chlorhexidine as a cleansing solution. At this time using fluoroscopy guidance markers were placed on the left lateral border of the L4 and L5 vertebral body. The skin and subcutaneous tissue was anesthetized using 1% lidocaine and 25-gauge needle. At this time using a 22-gauge 3-1/2 inch spinal needle the left upper one third of the L4-5 foramen was accessed. The same was done at the right L5-S1 foramen. Needle positions were confirmed and a lateral view using fluoroscopy and contrast dye. At this time 1 cc of 1% lidocaine +20 mg of Depo-Medrol was injected at each level after negative aspiration. Ehrenberg were removed. Band-Aid applied. Patient tolerated the procedure without difficulty. There are no complications. Plan and Disposition:: Patient was discharged without incident.
== END 2023-04-01 08:26 | disposition home or self-care (01) ==
LOC: SC.PAINP 07:39
PROVIDERS: PCP Emergency Medicine; Visit Provider Nurse Anesthetist, Certified Registered
DX: M51.16 Intervertebral disc disorders with radiculopathy, lumbar region (principal)
CPT/HCPCS: 64483; 64484; J1030

== ENCOUNTER 2023-09-18 11:42 | Outpatient (CLI) | payer MEDICARE, SELFPAY ==
--- NOTE | 2023-09-18 11:47 | XR_ITS ---
FINAL REPORT TECHNIQUE: Chest PA & Lateral CLINICAL HISTORY: chest pain COMPARISON: None FINDINGS: 2 views of the chest were performed. The heart size is normal. The mediastinum is within normal limits. There is no acute cardiopulmonary process. There are no pleural effusions. There is no pneumothorax. The bony thorax appears intact. IMPRESSION: No acute cardiopulmonary process. Reviewed, Interpreted and Dictated by Jhoan Fisher MD Transcribed by Destiny Dunham Authenticated and [facility]
== END 2023-09-18 23:59 ==
LOC: RAD 11:44
PROVIDERS: PCP Internal Medicine; Visit Provider Physician Assistant
DX: I51.89 Other ill-defined heart diseases (principal); R07.89 Other chest pain; R53.83 Other fatigue
CPT/HCPCS: 71046

== ENCOUNTER 2023-10-01 13:27 | Outpatient (CLI) | payer MEDICARE, SELFPAY ==
--- NOTE | 2023-10-01 13:28 | CA_ITS ---
APPROVED REPORT EXAM: Comprehensive 2D, Doppler, and color-flow Echocardiogram Riding Coach: ABDOULAYE Nassar, RVS Ht: 5 ft 6 in Wt: 153lbs BSA: 1.78 BP: 119/77 mmHg Rhythm: Bradycardia Indications: CP, PVC's, Fatigue, Diastolic dysfunction, Patient experienced Chest pain during exam that did resolve 2D Dimensions IVSd 0.96 cm F: 0.6-1.0 LVEF (Visual) 38.40 % PWd 0.99 cm F: 0.6 - 1.0 LA Volume 91.30 mL LVDd 4.55 cm F: 3.9 - 5.3 LA Volume Index 51.384620 mL/m2 (M/F) 16-34 LVDs 3.71 cm F: 2.2 - 3.5 EF AP4 62.70 % Aortic Root 2.79 cm F: 2.7 - 3.3 GL Strain -21.4 % Left Atrium 3.08 cm F: 2.7 - 3.8 RVID Base (AP4) 3.02 cm (M/F) 2.5-4.1 LVOT 1.84 cm (M/F) 1.5-2.5 M-Mode Dimensions RVDd 1.68 cm (0.9-2.6) LVDd 4.55 cm (3.5-5.7) Ao Diam 3.12 cm (2.0-3.7) LVDs 3.71 cm (3.5-5.7) IVSd 0.68 cm (0.6-1.1) PWd 0.82 cm (0.6-1.1) EPSs 0.90 cm FS 18.50% EDV (Teich) 184.80 mL TAPSE 2.19 (<1.7) LV Diastology E Decel Time 250 (160-240 msec) E/A Ratio 1.09 MED E' 6.2 (>= 7 cm/sec) MED A' 8.90 cm/s E'/MED E' Ratio 15.52 (<= 14) LAT E' 8.8 (>= 10 cm/sec) LAT A' 10.50 cm/s E/LAT E' Ratio 10.93 (<= 14) Aortic Valve LVOT Max 95.0 (70-110 cm/s) MARLO Index 0.97 cm2/m2 LVOT VTI 22.61 cm AoV Peak Mert. 137.0 (50-130 cm/s) AI PHT 539.00 ms AO Mean GR. 3.80 (<5 mmHg) AO VTI 34.8 (18-25 cm) MARLO (VTI) 1.73 (2.5-4.5 cm2) Mitral Valve MV E Max Mert. 96.0 (40-130 cm/s) MV A Velocity 88.0 (40-130 cm/s) E/A Ratio 1.09 MV Decel. Time 250 (160-240 ms) Pulmonary Valve SD End VMAX 159.0 cm/s Tricuspid Valve TR P. Velocity 227.00 cm/s RAP Estimate 10.00 mmHg RVSP 30.70 mmHg Left Ventricle The left ventricle is normal size. The left ventricular systolic function is normal. The left ventricular ejection fraction is within the normal range. Proximal septal thickening is noted. There is normal LV segmental wall motion. The left ventricular diastolic function is normal. LVEF is 55%. Right Ventricle The right ventricle is normal size. The right ventricular systolic function is normal. Atria Left atrium is moderately dilated. Right atrium is mildly dilated. There is no Doppler evidence of interatrial shunt. Aortic Valve The aortic valve opens well. There is no aortic valvular stenosis. Trace aortic regurgitation. Mitral Valve The mitral valve leaflets are mildly thickened. No evidence of mitral valve stenosis. Mild mitral regurgitation. Tricuspid Valve The tricuspid valve leaflets are thin and pliable. Trace tricuspid regurgitation. There is insufficient TR jet to estimate RVSP. Pulmonic Valve The pulmonary valve is normal in structure. Trace pulmonic regurgitation. Great Vessels The aortic root is normal in size. The ascending aorta is not well-visualized. IVC is normal in size and collapses >50% with inspiration. Pericardium There is no pericardial effusion. Other Information Study Quality: Fair Conclusion Normal biventricular systolic function. Biatrial dilation. Mild MR. Electronically signed by : Milla Rose MD 10/04/2023 23:09:57
== END 2023-10-01 23:59 ==
LOC: RT 13:28
PROVIDERS: PCP Internal Medicine; Visit Provider Physician Assistant
DX: R53.83 Other fatigue (principal); R07.89 Other chest pain; I51.89 Other ill-defined heart diseases
CPT/HCPCS: 93306

== ENCOUNTER 2023-11-05 07:08 | Outpatient (CLI) | payer MEDICARE, SELFPAY ==
--- NOTE | 2023-11-05 | CA_ITS ---
APPROVED REPORT Exam: Exercise Treadmill Technologist: Domi Dhaliwal Ht: 5 ft 6 in Wt: 152 lbs BSA: 1.78 m2 HR: 61 bpm BP: 132/84 mmHg Rhythm: NSR Indications: Chest pain, Abnormal echo Medical History Medications: Atorvastatin,,,,, BisOPROLOL,,,,, AmiTRIPTYLINE,,,,, SuLFASALAZINE,,,,, Fluoxetine,,,,, Garlic,,,,, Stress Test Details Test: Brennan HR Resting HR: 71 bpm Max Heart Rate (APMHR): 153 bpm Max HR Achieved: 138 bpm Target HR (85% APMHR): 130 bpm % of APMHR: 90 Recovery HR: 68 bpm HR response to stress: Normal HR response to stress BP Resting BP: 132.0/84.0 mmHg Max BP: 164.0/64.0 mmHg Recovery BP: 128.0/66.0 mmHg BP response to stress: Normal blood pressure response to stress. ECG Resting ECG: Normal sinus rhythm Stress ECG: < 0.[address] depression Arrhythmia: PVCs, 1 ventricular couplet Recovery ECG: Return to baseline within 3 minutes of recovery Recovery Arrhythmia: None Clinical Exercise duration: 07:09 min Highest Stage Achieved: Exercise capacity: 10.1 METs Overall Exercise Capacity for Age: Average Stress ECG Conclusion The patient was able to exercise for a total of 7 minutes, 09 seconds. She achieved a total of 10.1 METS. She has average exercise capacity compared to age and sex matched peers. She has normal HR and BP response to exercise. Symptoms: No chest pain. Arrhythmias/Ectopy: PVCs, ventricular couplet ST-T Changes: 0.[address] depression Conclusion: Within normal GXT. Stress Echo images reported separately. Test Summary REST . . . . . . . Sitting REST . . . . . . . Standing REST 02:40 0.0 0.0 71 . 132/ 84 . . Stage 1 01:00 10.0 1.7 87 . . . . Stage 1 02:00 10.0 1.7 94 . . . . Stage 1 03:00 10.0 1.7 99 . 148/ 64 . . Stage 2 01:00 12.0 2.5 107 . . . . Stage 2 02:00 12.0 2.5 116 . . . . Stage 2 03:00 12.0 2.5 121 . 164/ 64 . . Stage 3 01:00 14.0 3.4 136 . . . . Stage 3 01:09 14.0 0.9 138 . . . Stop exercise at 07:09 RECOVERY 01:00 0.0 0.0 114 . . . . RECOVERY 02:00 0.0 0.0 90 . . . . RECOVERY 03:00 0.0 0.0 76 . . . . RECOVERY 04:00 0.0 0.0 70 . . . . RECOVERY 05:00 0.0 0.0 66 . . . . RECOVERY 05:25 0.0 0.0 66 . 128/ 66 . . Electronically signed by : Milla Rose MD 11/08/2023 01:04:07
--- NOTE | 2023-11-05 07:08 | CT_ITS ---
FINAL REPORT TECHNIQUE: Axial CT images were performed from the lung apices through the upper abdomen. Coronal reformats were submitted. This study was performed with techniques to keep radiation doses as low as reasonably achievable (ALARA). Individualized dose reduction techniques using automated exposure control or adjustment of mA and/or kV according to the patient's size were employed. CLINICAL HISTORY: cp/dyspnea. FINDINGS: There is no axillary adenopathy. There is no hilar or mediastinal mass or adenopathy. Heart size is normal. There is no pericardial or pleural effusion. Limited images of the upper abdomen are unremarkable. Note is made of mild scarring. There is a calcified granuloma in the right upper lobe. There is a 4 mm medial right lower lobe nodule well seen on image 146. The osseous structures demonstrate chronic T6 and T7 compression fractures with partial fusion. There are moderate degenerative changes of the thoracic spine. IMPRESSION: Right lower lobe nodule measures 4 mm. Consider follow-up in 12 months. Reviewed, Interpreted and Dictated by Tj Gilliam III, MD Transcribed by Tiana Sunshine Authenticated and [facility]
--- NOTE | 2023-11-05 07:41 | CA_ITS ---
APPROVED REPORT EXAM: Comprehensive 2D, Doppler, and color-flow Echocardiogram Traveling Phlebotomist: Nora Levin RVT Ht: 5 ft 6 in Wt: 153lbs BSA: 1.78 BP: 119/77 mmHg Indications: EVALUATE LVOT WITH EXCERCISE,SEPTAL THICKENING SEEN ON TTE,CP,SOA Stress Test Details HR Resting HR: 78 bpm Max Heart Rate (APMHR): 153 bpm Max HR Achieved: 138 bpm Target HR (85% APMHR): 130 bpm % of APMHR: 90 Recovery HR: 68 bpm BP Resting BP: 132/64 mmHg Max BP: 168/68 mmHg ECG Resting ECG: Normal sinus rhythm, PVCs Stress ECG: < 0.[address] depression Arrhythmia: PVCs, 1 ventricular couplet Recovery ECG: Return to baseline within 3 minutes of recovery Recovery Arrhythmia: PVCs Clinical Exercise duration: 7.00 min Exercise capacity: 10.1 METs Overall Exercise Capacity for Age: Average Echo Findings The Pre-Stress Echocardiogram showed normal left ventricular contractility with an estimated Ejection Fraction of about 5%. Pre-stress echocardiogram demonstrated normal mitral valve mobility with no evidence of NATALIYA. There is no evidence of LVOT gradient at rest. The Post-Stress Echocardiogram showed normal left ventricular contractility with an estimated Ejection Fraction of about 65%. Poststress echocardiogram demonstrated no provokable LVOT gradient at peak exercise. Other Information Study Quality: Adequate Conclusion Average exercise capacity. Good LV augmentation at peak stress. No evidence of NATALIYA. No resting or provocable LVOT gradient at peak stress. Electronically signed by : Milla Rose MD 11/08/2023 01:08:59
== END 2023-11-05 23:59 ==
LOC: RAD 07:08
PROVIDERS: PCP Internal Medicine; Visit Provider Physician Assistant
DX: R93.1 Abnormal findings on diagnostic imaging of heart and coronary circulation (principal); R53.83 Other fatigue; R42 Dizziness and giddiness; R07.89 Other chest pain; I51.89 Other ill-defined heart diseases; E78.2 Mixed hyperlipidemia; R06.00 Dyspnea, unspecified
CPT/HCPCS: 71250; 93017; 93018; 93350

== ENCOUNTER 2023-12-03 09:59 | Outpatient (CLI) | payer MEDICARE, SELFPAY ==
--- NOTE | 2023-12-03 10:04 | CA_ITS ---
FINAL REPORT TECHNIQUE: Color Doppler, duplex Doppler and newman scale sonography of the bilateral neck vasculature was performed. Velocities were measured in the carotid arteries. Stenosis evaluation based on velocity criteria. CLINICAL HISTORY: BRUIT,HTN COMPARISON: None FINDINGS: The peak systolic velocity of the right common carotid artery is 168 cm/sec and internal carotid artery 87 cm/sec. The diastolic velocity in the internal carotid artery is 35 cm/sec. The ICA/CCA ratio is 1.25. Visually, a small amount of plaque is seen. These findings are consistent with less than 50% stenosis. The external carotid artery is patent. The right vertebral artery is patent with antegrade flow. The peak systolic velocity of the left common carotid artery is 89 cm/sec and internal carotid artery 111 cm/sec. The diastolic velocity in the internal carotid artery is 46 cm/sec. The ICA/CCA ratio is 1.25. Visually, a small amount of plaque is seen. These findings are consistent with less than 50% stenosis. The external carotid artery is patent. The left vertebral artery is patent with antegrade flow. IMPRESSION: No evidence of significant carotid stenosis, with mild plaque present.. Bilateral patent vertebral arteries. If indicated, CTA or MRA could further evaluate. Reviewed, Interpreted and Dictated by Tj Gilliam III, MD Transcribed by Destiny Dunham Authenticated and [facility]
[2023-12-03 10:52] LABS: Basophils % 0.5 % (0.1-2.0); Eosinophils # 0.1 K/mm3 (0.0-0.4); Eosinophils % 2.1 % (0.1-12.0); Hemoglobin 12.7 g/dL (12.2-16.2); Lymphocytes # 1.3 K/mm3 (0.7-4.5); Lymphocytes % 22.3 % (10-50); Mean Corpuscular HGB Conc 32.7 g/dL (31.8-35.4); Mean Corpuscular Hemoglobin 31.2 pg (27.0-31.2); Mean Corpuscular Volume 95.3 fl (81-99); Monocytes # 0.4 K/mm3 (0.1-1.0); Monocytes % 6.5 % (1.7-9.3); Neutrophils # 3.9 K/mm3 (1.8-7.8); Neutrophils % 68.5 % (37.0-80.0); Platelet Count 235 K/mm3 (142-424); Red Blood Count 4.09 M/mm3 (4.20-5.40); Red Cell Distribution Width 14.2 % (11.5-17.5); White Blood Count 5.7 K/mm3 (4.8-10.8)
[2023-12-03 11:10] LABS: Creatinine,Urine Random 118 mg/dL (Not Estab.)
[2023-12-03 11:12] LABS: Microalbumin/Creatinine Ratio 6.3
[2023-12-03 11:27] LABS: Chloride 103 mmol/L (98-107); Potassium 4.5 mmoL/L (3.5-5.1); Sodium 139 mmol/L (136-145)
[2023-12-03 11:30] LABS: Alanine Aminotransferase 24 U/L (12-78); Albumin Level 4.2 g/dl (3.5-5.0); Alkaline Phosphatase 71 U/L (38-126); Aspartate Amino Transferase 32 U/L (14-36); Bilirubin,Total 0.5 mg/dl (0.2-1.3); Blood Urea Nitrogen 15 mg/dl (7-17); Calcium 9.8 mg/dl (8.4-10.2); Chol/HDL Ratio 2.2 (1-3.5); Cholesterol 231 mg/dl (140-200); Estimated Glomerular Filt Rate 83 ml/min (>60); GFR (African American) 101 ML/MIN (>60); Globulin 2.1 g/dL (1.3-3.2); Glucose 95 mg/dl (74-100); HDL Cholesterol 104 mg/dl (40-60); Total Protein,Serum 6.3 g/dl (6.3-8.2); Triglycerides 51 mg/dl (30-150); VLDL Cholesterol 10 mg/dL (0-40)
[2023-12-03 11:42] LABS: Direct LDL Cholesterol 111.43 mg/dL (100-129)
[2023-12-03 12:00] LABS: Thyroid Stimulating Hormone 0.02 uIU/mL (0.465-4.68)
[2023-12-03 12:09] LABS: 25-OH Vitamin D, Total 45.5 ng/mL (30-100)
[2023-12-03 13:16] LABS: Anion Gap 11.5 mEq/L (5-15); Carbon Dioxide 29 mmol/L (22.0-30.0)
[2023-12-03 13:51] LABS: Hemoglobin A1C 5.4 % (4.0-6.0)
[2023-12-03 16:18] LABS: Vitamin B12 > 1000 pg/mL (239-931)
== END 2023-12-03 23:59 | disposition home or self-care (01) ==
LOC: RT 10:00
PROVIDERS: PCP Internal Medicine; Visit Provider Internal Medicine
DX: R09.89 Other specified symptoms and signs involving the circulatory and respiratory systems (principal); R53.83 Other fatigue; R73.09 Other abnormal glucose; E55.9 Vitamin D deficiency, unspecified; E78.5 Hyperlipidemia, unspecified; E53.8 Deficiency of other specified B group vitamins
CPT/HCPCS: 36415; 80053; 80061; 82043; 82306; 82570; 82607; 83036; 84443; 85025; 93880

== ENCOUNTER 2023-12-09 09:28 | Outpatient (CLI) | payer MEDICARE, SELFPAY ==
[2023-12-09 11:19] LABS: Free T4 (Free Thyroxine) 0.88 ng/dl (0.78-2.19)
[2023-12-10 09:12] LABS: Thyroid Peroxidase Antibodies <9 IU/mL (0-34); Triiodothyronine (T3) Free 3.4 pg/mL (2.0-4.4)
[2023-12-10 18:09] LABS: Thyroglobulin Level <1.0 IU/mL (0.0-0.9)
== END 2023-12-09 23:59 | disposition home or self-care (01) ==
PROVIDERS: PCP Internal Medicine; Visit Provider Internal Medicine
DX: E03.9 Hypothyroidism, unspecified (principal)
CPT/HCPCS: 36415; 84439; 84481; 86376; 86800

== ENCOUNTER 2023-12-17 10:52 | Outpatient (CLI) | payer MEDICARE, SELFPAY ==
--- NOTE | 2023-12-17 10:58 | XR_ITS ---
FINAL REPORT CLINICAL HISTORY: Left Foot Pain COMPARISON: None FINDINGS: LEFT FOOT Three views of the left foot demonstrate no acute fracture or dislocation. There are hypertrophic changes of the dorsal aspect of the talonavicular joint. The soft tissues are unremarkable. IMPRESSION: Hypertrophic changes without acute bony abnormality. Reviewed, Interpreted and Dictated by Jhoan Fisher MD Transcribed by Shara Burgos Authenticated and [facility]
--- NOTE | 2023-12-17 10:58 | XR_ITS ---
FINAL REPORT CLINICAL HISTORY: Left Ankle Pain COMPARISON: None FINDINGS: LEFT ANKLE Three views demonstrate no acute fracture or dislocation. There is a sideplate and screws securing the distal fibula. The ankle mortise is intact. There is a mild Kenrick deformity. A small plantar spur is noted. There are osteophytes along the distal aspect of the talonavicular joint. . The soft tissues are unremarkable. IMPRESSION: Hypertrophic and postoperative changes without acute bony abnormality. Reviewed, Interpreted and Dictated by Jhoan Fisher MD Transcribed by Shara Burgos Authenticated and . [facility]
--- NOTE | 2023-12-17 10:58 | XR_ITS ---
FINAL REPORT CLINICAL HISTORY: Right ankle pain COMPARISON: None FINDINGS: RIGHT ANKLE 3 views of the right ankle were obtained. There is no acute fracture or dislocation. The mortise is intact. Visualized joint spaces are normally aligned. Kenrick deformity is noted. There is a moderate plantar spur. Soft tissues are unremarkable. IMPRESSION: No acute bony abnormality. Reviewed, Interpreted and Dictated by Jhoan Fisher MD Transcribed by Shara Burgos Authenticated and [facility]
--- NOTE | 2023-12-17 10:58 | XR_ITS ---
FINAL REPORT CLINICAL HISTORY: Right Foot Pain COMPARISON: None FINDINGS: RIGHT FOOT 3 views of the right foot were obtained. There is no acute fracture or dislocation. There are [id number] hypertrophic changes of the 1st metatarsal phalangeal joint consistent with osteoarthritis. Soft tissues are unremarkable. IMPRESSION: Osteoarthritis without acute bony abnormality. Reviewed, Interpreted and Dictated by Jhoan Fisher MD Transcribed by Shara Burgos Authenticated and [facility]
== END 2023-12-17 23:59 | disposition home or self-care (01) ==
LOC: RAD 10:54
PROVIDERS: PCP Internal Medicine; Visit Provider Podiatrist
DX: M25.572 Pain in left ankle and joints of left foot; M25.571 Pain in right ankle and joints of right foot; M79.671 Pain in right foot; M79.672 Pain in left foot
CPT/HCPCS: 73610; 73630

== ENCOUNTER 2024-01-06 07:07 | Outpatient (CLI) | payer MEDICARE, SELFPAY ==
--- NOTE | 2024-01-06 07:07 | US_ITS ---
FINAL REPORT CLINICAL HISTORY: small mass on R side under axillary region COMPARISON: None FINDINGS: ULTRASOUND RIGHT AXILLARY REGION: Ultrasound examination was performed to evaluate two areas lateral to the right axilla. No mass or fluid collection is identified in the regions indicated by the patient. If symptoms persist, MRI may be helpful for further evaluation. IMPRESSION: No mass or fluid collection identified in the regions indicated by the patient. If symptoms persist MRI may be helpful for further evaluation. Reviewed, Interpreted and Dictated by Tj Gilliam III, MD Transcribed by Destiny Dunham Authenticated and [facility]
== END 2024-01-06 23:59 | disposition home or self-care (01) ==
LOC: RAD 07:07
PROVIDERS: PCP Internal Medicine; Visit Provider Internal Medicine
DX: R22.30 Localized swelling, mass and lump, unspecified upper limb (principal)
CPT/HCPCS: 76705

== ENCOUNTER 2024-01-07 10:11 | Outpatient (CLI) | payer MEDICARE, SELFPAY ==
--- NOTE | 2024-01-07 10:15 | MM_ITS ---
PROCEDURE INFORMATION: Exam: MG Bilateral Screening 3D Mammography Exam date and time: 01/07/2024 10:15 AM Age: 68 years old Clinical indication: Screening mammogram TECHNIQUE: Imaging protocol: Bilateral Screening tomosynthesis and 2D mammography including computer-aided detection (CAD) when performed. COMPARISON: 1. MG MM DIG SCREENING MAMM BI W/CAD 11/22/2022 8:16 AM 2. MG MM DIG SCREENING MAMM BI W/CAD 11/13/2021 12:52 PM 3. MG MM DIG MAMM BI DX W/CAD 11/07/2020 1:33 PM 4. MG MM DIG MAMM BI DX W/CAD 05/02/2020 2:13 PM FINDINGS: MAMMOGRAPHY: Breast composition: The breast is heterogeneously dense, which may obscure small masses. Mass: None. Architectural distortion: No new or suspicious architectural distortion. Calcifications: No new or suspicious calcifications are present Asymmetric density: No new or suspicious asymmetric density is present Skin thickening: None. Axillary adenopathy: None. IMPRESSION: No mammographic evidence of malignancy. Recommend annual screening mammography unless otherwise clinically indicated. ASSESSMENT: BI-RADS category 1: Negative.
== END 2024-01-07 23:59 | disposition home or self-care (01) ==
LOC: RAD 10:12
PROVIDERS: PCP Internal Medicine; Visit Provider Internal Medicine
DX: Z12.31 Encounter for screening mammogram for malignant neoplasm of breast (principal)
CPT/HCPCS: 77063; 77067

== ENCOUNTER 2024-01-13 18:00 | Outpatient (CLI) | payer MEDICARE, SELFPAY ==
[2024-01-13 20:05] LABS: Thyroid Stimulating Hormone 1.68 uIU/mL (0.465-4.68)
[2024-01-19 10:49] LABS: Lyme B. burgdorferi PCR Blood Negative (Negative)
== END 2024-01-13 23:59 | disposition home or self-care (01) ==
LOC: LAB.DROPOF 01-14 10:12
PROVIDERS: PCP Internal Medicine; Visit Provider Internal Medicine
DX: W57.XXXA Bitten or stung by nonvenomous insect and other nonvenomous arthropods, initial encounter (principal); E07.9 Disorder of thyroid, unspecified
CPT/HCPCS: 84443; 87476

== ENCOUNTER 2024-02-20 11:00 | Outpatient (RCR) | payer MEDICARE, SELFPAY ==
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
== END 2024-02-20 11:05 | disposition home or self-care (01) ==
LOC: PT 11:00
PROVIDERS: Visit Provider Internal Medicine
DX: M51.36 Other intervertebral disc degeneration, lumbar region (principal)
CPT/HCPCS: 97010; 97014; 97110; 97163; G0283

== ENCOUNTER 2024-04-06 13:35 | Outpatient (CLI) | payer MEDICARE, SELFPAY ==
[2024-04-06 19:03] LABS: Chol/HDL Ratio 3.3 (1-3.5); Cholesterol 281 mg/dl (140-200); HDL Cholesterol 85 mg/dl (40-60); Triglycerides 53 mg/dl (30-150); VLDL Cholesterol 11 mg/dL (0-40)
[2024-04-06 19:13] LABS: Direct LDL Cholesterol 159.58 mg/dL (100-129)
== END 2024-04-06 23:59 | disposition home or self-care (01) ==
LOC: LAB.DROPOF 04-07 13:35
PROVIDERS: PCP Internal Medicine; Visit Provider Internal Medicine
DX: E78.5 Hyperlipidemia, unspecified (principal)
CPT/HCPCS: 80061

== ENCOUNTER 2024-06-08 | Emergency (ER) | payer MEDICARE, SELFPAY ==
[2024-06-08 00:02] VITALS: BP 168/95; PULSE 87; RESP 20; TEMP 37; O2SAT 98; BMI 24.2
--- NOTE | 2024-06-08 00:11 | HMH.EDGENADL ---
Discharge Plan Disposition Patient Disposition: Home, Self-Care Prescriptions Prescriptions: No Action sulfasalazine 500 mg tablet 1 g PO DAILY Patient Comments: TAKE 2 TABLETS BY MOUTH TWICE DAILY bupropion HCl 75 mg tablet 75 mg PO DAILY Qty: 90 2RF amitriptyline 25 mg tablet 25 mg PO DAILY Qty: 90 4RF diclofenac sodium 3 % gel 1 applic topical BID Qty: 100 2RF tizanidine 2 mg tablet 2 mg PO TID PRN (Reason: muscle spasticity) Qty: 90 0RF sertraline 50 mg tablet See Rx Instructions .ROUTE .COMPLEX Qty: 90 0RF Dose Instruction: Take 1 tablet by mouth once daily Rx Instructions: Take 1 tablet by mouth once daily Referrals Follow up/Referrals: Oleksandr Boateng DO [Primary Care Provider] - See instructions Activity Restrictions/Add. Instructions Additional Instructions/Restrictions: Please follow-up with your primary care provider. Please return to the emergency department if you develop any new or worsening symptoms or become concerned for your health. Clinical Impressions Clinical Impression: Dizziness, Encounter for medical assessment Instructions Patient Instructions: DI for Diarrhea and Traveler's Diarrhea -- Adult, DI for Diarrhea and Traveler's Diarrhea -- Child, DI for Nausea -- Adult, DI for Nausea -- Child Print Language Print Language: Turkmen Discharge ED Provider: Jose Enrique Lynn Adult HPI General Chief complaint: Nausea/Vomiting/Diarrhea Stated complaint: nausea, dizziness, lightheaded, cold sweat Time Seen by Provider: 06/08/24 00:11 History of Present Illness HPI narrative: 61-year-old with history of ulcerative colitis and a variety of other comorbidities presents for dizziness. She reports that she has chronic pain and saw an advertisement for a supplement that helped with pain. She reports that she took about a half a gummy after dinnertime and thereafter became feeling lightheaded/dizzy and uncomfortable. She reports she feels like she has not been thinking right. She reports that she is feeling a little better now. She denies any chest pain abdominal pain shortness of breath. Related Data Home Medications ?Medication ?Instructions ?Recorded ?Confirmed sulfasalazine 500 mg tablet 1 g PO DAILY . 09/09/22 05/25/24 Previous Rx's ?Medication ?Instructions ?Recorded bupropion HCl 75 mg tablet 75 mg PO DAILY #90 tabs 02/09/24 amitriptyline 25 mg tablet 25 mg PO DAILY SLEEP #90 tabs 03/09/24 diclofenac sodium 3 % topical gel 1 applic topical BID pain in hips 04/12/24 #100 grams tizanidine 2 mg tablet 2 mg PO TID PRN muscle spasticity 04/22/24 #90 tabs sertraline 50 mg tablet See Rx Instructions .Route 06/07/24 .COMPLEX #90 tabs Allergies Allergy/AdvReac Type Severity Reaction Status Date / Time fluconazole Allergy Hives Verified 05/25/24 12:55 azathioprine AdvReac pancreatiti Verified 05/25/24 12:55 [facility] Disclaimer: The information contained in this section may have been updated after the patient was seen, as this information can be updated by other users. Medical History Abnormal echocardiogram Fatigue Dizziness Atypical chest pain Migraines PVC (premature ventricular contraction) Hyperlipidemia Social History Smoking Status: Unknown if ever smoked alcohol intake: never substance use type: denies use current occupational status: retired Travel in the last 8 weeks: None household members: spouse housing: house caffeine: Yes Other Medical History Have you received the Flu Vaccine for this season: No Have you received the Pneumonia Vaccine: No ROS Obtained: Yes All systems reviewed & no additional complaints except as documented Physical Exam General General appearance: alert and in no apparent distress Head Head exam: atraumatic and normocephalic Eye Eye exam: Present normal appearance, PERRL and EOMI ENT ENT exam: Present normal oropharynx and normal external ear exam Neck Neck exam: Present normal inspection and full ROM Chest Chest inspection: Present normal inspection and symmetric chest wall rise; Absent tenderness Respiratory Respiratory exam: Present normal lung sounds bilaterally; Absent respiratory distress Cardiovascular Cardiovascular exam: Present regular rate and normal rhythm Abdominal Exam Abdominal exam: Present soft; Absent distention, tenderness or guarding Extremities Exam Extremities exam: Present normal inspection; Absent edema or joint swelling Back Exam Back exam: Present normal inspection; Absent tenderness Neurological Exam Neurological exam: Present alert and oriented X3; Absent motor sensory deficit Psychiatric Psychiatric exam: Present normal affect and normal mood Skin Skin exam: Present warm, dry and normal color Lymphatic Lymphatic Findings: no adenopathy Medical Decision Making Medical Records Medical records reviewed: Yes I reviewed the patient's medical records. Screening: Per USPSTF and CDC recommendations, given the prevalence of disease in our region, it is our hospital?s policy to screen for HIV and viral Hepatitis for all patients aged 18 and over and those with ongoing risk factors. Ever Inquiry Pt receiving controlled substance: No Ever was queried for this patient: No Vital Signs: 06/08/24 00:02 06/08/24 01:59 Temperature 98.6 F 98.4 F Temperature Source Oral Oral Pulse Rate 76 Pulse Rate [Right] 87 Respiratory Rate 20 20 Blood Pressure 140/81 Blood Pressure [Right Arm] 168/95 H Blood Pressure Mean [Right Arm] 119 02 Sat by Pulse Oximetry 98 Oxygen Delivery Method Room Air Room Air Lab Data Lab results reviewed: Yes I reviewed the patient's lab results. Orders (Tests/Meds): ED MEDICATIONS Discontinued Medications Generic Name Dose Route Start Last Admin Trade Name Freq PRN Reason Stop Dose Admin Ondansetron HCl 4 mg 06/08/24 00:24 06/08/24 00:48 Ondansetron 4mg Odt SL 06/08/24 00:25 4 mg ONCE ONE Administration ECG Data Tracing #1: ECG initial impression date: 06/08/24 ECG initial impression time: 00:51 ECG normal with no acute: arrhythmias, ischemia, conduction abnormalities, chamber hypertrophy Medical Decision Narrative: 69-year-old female with a variety of medical comorbidities presents with onset of dizziness and uneasiness after taking a portion of a THC gummy. History was obtained via interactive discussion with patient, family. On arrival, patient is [afebrile, hemodynamically stable, satting appropriately, alert, oriented x4, GCS 15], moving all extremities spontaneously. Full physical exam performed and significant for no significant physical exam abnormalities. Differential includes but is not limited to intoxication, withdrawal, central cause of dizziness, peripheral dizziness. Patient was given Zofran for symptomatic management and correction of underlying abnormalities. Workup initiated including EKG. Lab work and CT imaging was considered, but deemed unnecessary due to onset of symptoms coinciding with ingestion of THC, improvement symptoms during ED stay. Given patient history, exam and workup, patient's presentation most likely represents acute intoxication with THC. Patient was observed for period of time. Her nausea improved after the Zofran and she reports that she feels ready for discharge. Patient was discharged in stable condition with return precautions. Procedures Risk/Benefits of Procedure(s) Were Explained: Yes Critical Care Critical Care Time Critical Care Time: No
[2024-06-08] MEDS: ONDANSETRON 4MG ODT 4 MG SL (00:48)
--- NOTE | 2024-06-08 00:48 | ECG_ITS ---
APPROVED REPORT Exam: Resting ECG HR:73 bpm ECG Measurements Heart Rate 73 AXES OH 132 P 33 QRSd 81 QRS 64 QT 384 T 55 QTc 409 Conclusion SINUS RHYTHM NORMAL ECG UNCONFIRMED REPORT Electronically signed by : KEN GARCIA, 06/09/2024 04:14:49
[2024-06-08 01:59] VITALS: BP 140/81; PULSE 76; RESP 20; TEMP 36.9; O2SAT 96
== END 2024-06-08 02:03 | disposition home or self-care (01) ==
PROVIDERS: Emergency Provider Emergency Medicine; PCP Internal Medicine
DX: R42 Dizziness and giddiness (principal); R19.7 Diarrhea, unspecified; R11.0 Nausea
CPT/HCPCS: 93005; 99283; Q0162

== ENCOUNTER 2024-06-15 13:06 | Outpatient (CLI) | payer MEDICARE, SELFPAY ==
[2024-06-15 13:56] LABS: Alanine Aminotransferase 29 U/L (12-78); Albumin Level 4.7 g/dl (3.5-5.0); Albumin/Globulin Ratio 2.2 (1.1-1.8); Alkaline Phosphatase 84 U/L (38-126); Anion Gap 14.2 mEq/L (5-15); Aspartate Amino Transferase 33 U/L (14-36); Bilirubin,Total 0.5 mg/dl (0.2-1.3); Blood Urea Nitrogen 18 mg/dl (7-17); Calcium 9.7 mg/dl (8.4-10.2); Carbon Dioxide 29 mmol/L (22.0-30.0); Chloride 101 mmol/L (98-107); Estimated Glomerular Filt Rate 99 ml/min (>60); GFR (African American) 120 ML/MIN (>60); Globulin 2.1 g/dL (1.3-3.2); Glucose 82 mg/dl (74-100); Potassium 4.2 mmoL/L (3.5-5.1); Sodium 140 mmol/L (136-145); Total Protein,Serum 6.8 g/dl (6.3-8.2)
[2024-06-15 14:02] LABS: C-Reactive Protein 3.3 mg/L (0-4)
[2024-06-15 14:14] LABS: 25-OH Vitamin D, Total 59.3 ng/mL (30-100)
[2024-06-15 14:34] LABS: Basophils % 0.4 % (0.1-2.0); Eosinophils # 0.1 K/mm3 (0.0-0.4); Eosinophils % 1.4 % (0.1-12.0); Hematocrit 36.6 % (37.0-47.0); Hemoglobin 12.5 g/dL (12.2-16.2); Lymphocytes # 1.8 K/mm3 (0.7-4.5); Lymphocytes % 22.8 % (10-50); Mean Corpuscular HGB Conc 34.3 g/dL (31.8-35.4); Mean Corpuscular Hemoglobin 30.4 pg (27.0-31.2); Mean Corpuscular Volume 88.6 fl (81-99); Mean Platelet Volume 7.6 fl (7.4-10.4); Monocytes # 0.5 K/mm3 (0.1-1.0); Monocytes % 6.3 % (1.7-9.3); Neutrophils # 5.6 K/mm3 (1.8-7.8); Neutrophils % 69.1 % (37.0-80.0); Platelet Count 258 K/mm3 (142-424); Red Blood Count 4.13 M/mm3 (4.20-5.40); Red Cell Distribution Width 14.4 % (11.5-17.5); White Blood Count 8.1 K/mm3 (4.8-10.8)
[2024-06-15 14:42] LABS: Erythrocyte Sedimentation Rate 28 mm/hr (0-30)
[2024-06-15 15:05] LABS: Vitamin B12 > 1000 pg/mL (239-931)
[2024-06-15 15:39] LABS: Iron 86 ug/dL (37-170)
[2024-06-15 15:48] LABS: Total Iron Binding Capacity 296 ug/dL (265-497)
[2024-06-15 16:15] LABS: Ferritin 60.3 ng/ml (11.1-264)
[2024-06-18 07:14] LABS: Calprotectin, Fecal 654 ug/g (0-120)
== END 2024-06-15 23:59 | disposition home or self-care (01) ==
PROVIDERS: PCP Internal Medicine; Visit Provider Nurse Practitioner Family
DX: K51.80 Other ulcerative colitis without complications (principal); E55.9 Vitamin D deficiency, unspecified
CPT/HCPCS: 36415; 80053; 82306; 82607; 82728; 83540; 83550; 83993; 85025; 85651; 86140

== ENCOUNTER 2024-09-16 07:01 | Day surgery (SDC) | payer MEDICARE, SELFPAY ==
[2024-09-14 16:44] VITALS: BMI 24.2
[2024-09-16 07:22] VITALS: BP 156/97; PULSE 105; RESP 17; TEMP 36.4; O2SAT 100
--- NOTE | 2024-09-16 08:01 | EXP.ANES.CKL ---
[facility] Disclaimer: The information contained in this section may have been updated after the patient was seen, as this information can be updated by other users. Medical History Fracture of left lower extremity History of colon cancer Ulcerative colitis Abnormal echocardiogram Fatigue Dizziness Atypical chest pain Migraines PVC (premature ventricular contraction) Hyperlipidemia Surgical History History of colonoscopy History of tonsillectomy Family History Other Colon cancer Social History Smoking Status: Unknown if ever smoked alcohol intake: never substance use type: denies use current occupational status: retired Travel in the last 8 weeks: None household members: spouse housing: house caffeine: Yes Have you lived/traveled outside [place] in past 30 days?: No Contact w/someone who lives/traveled outside [place] past 30 days?: No Exposure to someone with infectious disease in past 14 days?: No Do you have a fever (greater than 100.4 F or 38 C)?: No Have you tested positive for COVID-19: No Exposed to someone with COVID-19 in past 14 days?: No Do you have a sore throat?: No Do you have a cough?: No Do you have any weakness?: No Do you have any diarrhea?: No Are you experiencing any unusual bleeding?: No Do you have any muscle aches/pain?: No Do you have any abdominal pain?: No Are you experiencing loss of taste or smell?: No [facility] Anesthesia Checklist Patient Identification Patient Identification: Arm Band Structural Data Admitted From: Home Planned Operative Procedure/s: Colonoscopy Consent for Planned Operative Procedure(s) Verified: Yes Verified Documents: Surgical Consent and History and Physical NPO Status Verified Time NPO: 00:00 Additional verifications Anesthesia Reactions: No Hx Blood Transfusions: No Blood Transfusion Reaction: No Airway Assessment Mallampati Score:: Class II C-Spine Mobility Assessed: Yes TMJ Mobility Assessed: Yes Dentition: Good Dentition Neurological Assessment Level of Consciousness: Awake, Alert and Appropriate Anesthesia Plan Anesthesia Risk discussed: Yes Anesthesia Plan: Verified ASA Class: II Anesthesia Type: MAC
--- NOTE | 2024-09-16 08:22 | P.HP_ITS ---
History of Present Illness *Admission Date: 09/16/24 *Reason for visit:: Ulcerative colitis flare *History of present illness: Mrs. Rodas is a 69-year-old female with a long history of ulcerative colitis dating back to the mid 1980s who is here for diagnostic colonoscopy. The patient has been struggling with mucus in her stool and then some blood. She has had a change in bowel habits and lower abdominal pain. Her last colonoscopy was in 2020. The examination is deemed medically necessary for colonoscopy. The patient has been seen, interviewed and examined prior to the procedure by both myself and the anesthesia provider. [facility] Disclaimer: The information contained in this section may have been updated after the patient was seen, as this information can be updated by other users. Medical History (Updated 09/16/24 @ 08:24 by Tr Mccracken II, MD) Fracture of left lower extremity History of colon cancer Ulcerative colitis Abnormal echocardiogram Fatigue Dizziness Atypical chest pain Migraines PVC (premature ventricular contraction) Hyperlipidemia Surgical History History of colonoscopy History of tonsillectomy Family History Other Colon cancer Social History Smoking Status: Unknown if ever smoked alcohol intake: never substance use type: denies use current occupational status: retired Travel in the last 8 weeks: None household members: spouse housing: house caffeine: Yes Have you lived/traveled outside US in past 30 days?: No Contact w/someone who lives/traveled outside US past 30 days?: No Exposure to someone with infectious disease in past 14 days?: No Do you have a fever (greater than 100.4 F or 38 C)?: No Have you tested positive for COVID-19: No Exposed to someone with COVID-19 in past 14 days?: No Do you have a sore throat?: No Do you have a cough?: No Do you have any weakness?: No Do you have any diarrhea?: No Are you experiencing any unusual bleeding?: No Do you have any muscle aches/pain?: No Do you have any abdominal pain?: No Are you experiencing loss of taste or smell?: No Other Medical History Have you received the Flu Vaccine for this season: No Have you received the Pneumonia Vaccine: No Review of Systems Review of Systems Review of systems (narrative): Negative *Cardiovascular Comments: Negative *Gastrointestinal Comments: Negative *Genitourinary Comments: Negative *Musculoskeletal Comments: Negative *Neurologic Comments: Negative Meds Home Medications and Allergies Home Medications ?Medication ?Instructions ?Recorded ?Confirmed ?Type bupropion HCl 75 mg tablet 75 mg PO DAILY #90 tabs 02/09/24 09/14/24 Rx amitriptyline 25 mg tablet 25 mg PO DAILY SLEEP #90 tabs 03/09/24 09/14/24 Rx atorvastatin 40 mg tablet 40 mg PO DAILY 06/15/24 09/14/24 History folic acid 1 mg tablet 1 mg PO DAILY 06/15/24 09/14/24 History psyllium husk 0.4 gram capsule 0.4 g PO DAILY 06/15/24 09/14/24 History (Metamucil) sulfasalazine 500 mg tablet 1.5 g (3 x 500 mg) PO BID #180 tabs 07/26/24 09/16/24 Rx sodium,potassium,mag sulfates 17.5 See Rx Instructions PO .COMPLEX 08/09/24 09/14/24 Rx gram-3.13 gram-1.6 gram oral soln #354 mL (Suprep Bowel Prep Kit) sertraline 50 mg tablet See Rx Instructions .Route 09/06/24 09/14/24 Rx .COMPLEX #90 tabs New Prescriptions to Start Prescriptions: Allergies Allergy/AdvReac Type Severity Reaction Status Date / Time fluconazole Allergy Hives Verified 09/16/24 07:21 azathioprine AdvReac pancreatiti Verified 09/16/24 07:21 s Exam Data for Last 24 hours Vital signs and Labs for Last 24 Hours: Temp Pulse Resp BP Pulse Ox O2 Del Method 97.5 F L 105 H 17 156/97 H 100 Room Air 09/16/24 07:22 09/16/24 07:22 09/16/24 07:22 09/16/24 07:22 09/16/24 07:22 09/16/24 07:22 I & O for Last 24 hours: Intake & Output 09/13/24 09/14/24 09/15/24 09/16/24 23:59 23:59 23:59 23:59 Weight 150 lb *Routine HEENT Exam Head: Present normocephalic Eye: Present EOMI and PERRL ENT: Present mucous membranes moist *Routine Neck Exam Neck: Present supple *Routine Respiratory Exam Respiratory: Present CTA bilaterally *Routine Cardiovascular Exam Cardiovascular: Present RRR *Routine Abdominal Exam Abdominal: Present soft and normoactive bowel sounds; Absent tenderness *Routine Rectal Exam Rectal:: deferred *Routine Genitalia Exam Genitalia:: deferred *Routine Extremities Exam Extremities: Absent cyanosis, clubbing or edema *Routine Skin Exam Skin: Present warm; Absent rash *Routine Neurological Exam Neurological: Present alert and oriented X3 Assessment and Plan *Assessment and plan (1) History of ulcerative colitis: Status: Acute Category: Medical Code(s): Z87.19 - Personal history of other diseases of the digestive system (2) Rectal bleeding: Status: Acute Category: Medical Code(s): K62.5 - Hemorrhage of anus and rectum (3) Increased mucus in stool: Status: Acute Category: Medical Code(s): R19.5 - Other fecal abnormalities (4) Lower abdominal pain: Status: Acute Category: Medical Code(s): R10.30 - Lower abdominal pain, unspecified (5) Change in bowel habits: Status: Acute Category: Medical Code(s): R19.4 - Change in bowel habit Plan A/P: 1. History of ulcerative colitis with flare with rectal bleeding, lower abdominal pain, change in bowel habits and bloody mucus with stool is the preprocedural diagnosis. The patient has had ulcerative colitis since the mid 1980s. Last colonoscopy was 3 to 4 years ago. The patient will be anesthetized/sedated using MAC sedation. The patient has been seen and examined. Cardiac and lung assessment prior to the examination is stable. Proceed with planned colonoscopy
[2024-09-16 08:29] VITALS: O2SAT 100
--- NOTE | 2024-09-16 08:36 | HMH.PROCNOTE ---
[facility] Procedure Note Date: 09/16/24 Time: 08:51 Procedure Note:: Colonoscopy Procedure Report: Colonoscopy with cold biopsies Endoscopist: Tr Mccracken II, MD Referring physician: Oleksandr Boateng DO Date of Procedure: September 16, 2024 Equipment: Olympus 190 variable stiffness pediatric colonoscope Sedation: MAC sedation Indication: Mrs. Rodas is a 69-year-old female with a long history of ulcerative colitis diagnosed in the mid who is here for diagnostic colonoscopy. The patient's last colonoscopy was 3 to 4 years ago with in in [place]. The patient does report a change in bowel habits with obstipation. She has noted mucus with her stool but no blood. She has been using ClearLax and fiber Gummies and does report smaller caliber stools. She has struggled some with constipation and will have a bowel movement every 2 or 3 days. She reports no blood with her bowel movements. She did have some intentional weight loss. She reports no abdominal pain. She is on sulfasalazine 1500 mg p.o. twice daily. She does state that her paternal grandfather had colon cancer and her father and paternal uncle had colostomies. The patient has not been on any recent biologic therapy but when she had a flareup in the hospital 7 years ago, she did receive a Remicade infusion. Procedure: Prior to the procedure, a history and physical exam was performed, and patient's medications and allergies were reviewed. The risks, benefits and alternatives of the sedation and procedure were discussed with the patient. All questions were answered and informed consent was obtained. The patient was brought to the procedure room. Patient identification and proposed procedure were verified by the physician and the nurse. The patient was placed in a left lateral decubitus position and the scope was passed under direct vision. Throughout the procedure, the patient's blood pressure, pulse, and oxygen saturations were monitored continuously. The colonoscopy was accomplished without difficulty. The patient tolerated the procedure well. Findings: On digital rectal examination there was normal rectal tone. There were no external hemorrhoids. The colonoscope was introduced through the anal canal to the rectum and advanced to the cecum. The ileocecal valve and appendiceal orifice were identified. The scope was advanced a short distance into the ileum which appeared grossly normal. The scope was then withdrawn into the colon. There was normal vascular pattern throughout with no evidence of any active colitis. There was no mucosal edema, erythema, friability, erosions or ulcerations. There was mild mucosal fibrosis in the transverse, descending and sigmoid colon from prior healed colitis. There were a few scattered very small pseudopolyps in the transverse, descending and sigmoid colon. Several random biopsies were taken from the pseudopolyps. Upon retroflexion within the rectum there were grade 1-2 internal hemorrhoids. The preparation was excellent throughout with Rushford Preparation Score of 9. The cecal time was 12 minutes. Impression: 1. Complete colonoscopic remission of ulcerative colitis with a few small scattered pseudopolyps and mild mucosal fibrosis 2. Grade 1-2 internal hemorrhoids Plan: I will follow-up the biopsies. The patient does have some outlet dysfunction constipation with incomplete defecation. I do feel that she would benefit from pelvic floor physical therapy. I will discuss the findings with the patient and family. I would recommend repeat surveillance colonoscopy in 3 years based upon her long history of ulcerative colitis and family history.
[2024-09-16 08:57] VITALS: BP 104/68; PULSE 79; RESP 18; TEMP 36.1; O2SAT 95
[2024-09-16 09:07] VITALS: BP 139/80; PULSE 75; RESP 16; O2SAT 99
[2024-09-16 09:17] VITALS: BP 121/77; PULSE 80; RESP 18; O2SAT 98
[2024-09-16 09:22] VITALS: BP 131/80; PULSE 91; RESP 16; O2SAT 98
== END 2024-09-16 09:29 | disposition home or self-care (01) ==
PROVIDERS: PCP Internal Medicine; Visit Provider Internal Medicine Gastroenterology
PROC: 0DJD8ZZ Inspection of Lower Intestinal Tract, Via Natural or Artificial Opening Endoscopic (ICD-10-PCS; CPT 45378; principal; 2024-09-16 08:30)
DX: Z87.19 Personal history of other diseases of the digestive system (principal); R19.5 Other fecal abnormalities; R19.4 Change in bowel habit; K64.8 Other hemorrhoids
CPT/HCPCS: 45380

== ENCOUNTER 2024-12-23 14:09 | Outpatient (CLI) | payer MEDICARE, SELFPAY ==
[2024-12-23 18:55] LABS: Basophils % 0.5 % (0.1-2.0); Eosinophils # 0.1 Kmm3 (0.0-0.4); Eosinophils % 1.2 % (0.1-12.0); Hematocrit 36.1 % (37.0-47.0); Immature Granulocytes # 0.02 10^3uL; Immature Granulocytes % 0.2 %; Lymphocytes # 1.4 K/mm3 (0.7-4.5); Lymphocytes % 16.7 % (10-50); Mean Corpuscular HGB Conc 33.2 g/dL (31.8-35.4); Mean Corpuscular Hemoglobin 30.5 pg (27.0-31.2); Mean Corpuscular Volume 91.9 fl (81-99); Monocytes # 0.7 K/mm3 (0.1-1.0); Monocytes % 8.6 % (1.7-9.3); Neutrophils # 5.9 K/mm3 (1.8-7.8); Neutrophils % 72.8 % (37.0-80.0); Nucleated Red Blood Cells # 0 10^3/uL; Nucleated Red Blood Cells % 0 %; Platelet Count 266 K/mm3 (142-424); Red Blood Count 3.93 M/mm3 (4.20-5.40); Red Cell Distribution Width 13.5 % (11.5-17.5); Red Cell Distribution Width-SD 46.2 fL; White Blood Count 8.2 K/mm3 (4.8-10.8)
[2024-12-23 19:42] LABS: Alanine Aminotransferase 23 U/L (12-78); Albumin Level 4.4 g/dl (3.5-5.0); Albumin/Globulin Ratio 2.2 (1.1-1.8); Alkaline Phosphatase 74 U/L (38-126); Anion Gap 9.6 mEq/L (5-15); Aspartate Amino Transferase 31 U/L (14-36); Bilirubin,Total 0.4 mg/dl (0.2-1.3); Blood Urea Nitrogen 20 mg/dl (7-17); Calcium 9.8 mg/dl (8.4-10.2); Carbon Dioxide 31 mmol/L (22.0-30.0); Chloride 104 mmol/L (98-107); Chol/HDL Ratio 2.2 (1-3.5); Cholesterol 166 mg/dl (140-200); Estimated Glomerular Filt Rate 99 ml/min (>60); GFR (African American) 120 ML/MIN (>60); Glucose 87 mg/dl (74-100); HDL Cholesterol 74 mg/dl (40-60); Potassium 4.6 mmoL/L (3.5-5.1); Sodium 140 mmol/L (136-145); Total Protein,Serum 6.4 g/dl (6.3-8.2); Triglycerides 106 mg/dl (30-150); VLDL Cholesterol 21 mg/dL (0-40)
[2024-12-23 19:56] LABS: Direct LDL Cholesterol 76.24 mg/dL (100-129)
--- OUTSIDE RECORDS SUMMARY | 2024-12-24 13:42 | XMS_ITS | Data Portability ---
Author Organization [facility] - [facility] ADMIN Address [address] [place] [id number] Assessment Encounter Date Assessment Date Assessment LastModified by Organization Details LastModified Time 03/16/2024 03/16/2024 68-year-old blayne alonzo with history of ulcerative colitis, in symptomatic remission for several years on sulfasalazine. She has a history of anti-TNF therapy in the remote past. Most recent colonoscopy performed by Dr. Mccracken 07/2022 with recommendation to repeat in 3 years. 1) Ulcerative colitis: Continue sulfasalazine. Refills provided. She has been off of folate supplementation for a few years. -Resume folic acid 1 mg p.o. once daily. -Will obtain outside endoscopy records. -Recent outside labs from the referring provider were reviewed in the office today. Show normal CMP, CBC. 2) Dysphagia: High in the throat. She reports a remote history of esophageal dilation. - Schedule EGD for further evaluation. [email or web address] Not available 03/16/2024 16:53:39 05/06/2024 05/06/2024 68-year-old blayne alonzo with history of ulcerative colitis, in symptomatic remission for several years on sulfasalazine. She has a history of anti-TNF therapy in the remote past. Most recent colonoscopy performed by Dr. Mccracken 07/2022 with recommendation to repeat in 3 years. She also has recent dysphagia, not improved with recent empiric dilation. Pathology findings on EGD showed mild reflux related changes of the mid and distal esophagus as well as focal Montes's metaplasia at the GE junction. 1) Ulcerative colitis: Continue sulfasalazine. Refills provided. She has been off of folate supplementation for a few years. -Continue folic acid 1 mg p.o. once daily. -Will obtain outside endoscopy records. -Recent outside labs from the referring provider were reviewed, show normal CMP, CBC. 2) Dysphagia: High in the throat. She reports a remote history of esophageal dilation. Repeat dilation did not change her symptoms much. -Start Omeprazole 20 mg p.o. once daily. 3) Montes's esophagus: Seen on recent EGD with biopsy 03/2024. Repeat EGD in 3 years. Start PPI per above. f/u 1 year and PRN. [email or web address] Not available 05/06/2024 11:28:32 Plan of Treatment Reminders Order Date Submit Date Provider Last Modified By Organization Details Last Modified Time Details Appointments Establish ed Visit 15 min 2024 09:30A M Blake Dunham PA-C Not available Not available Not available Lab None recorded. Referral None recorded. Procedures None recorded. Surgeries None recorded. Imaging None recorded. Medication Orders omeprazol e 20 mg capsule,d elayed release 2023 024 [facility], [address], 05/06/2024 11:05:08 sulfasala zine 500 mg tablet 2023 024 [facility] [place], [address], 03/16/2024 16:53:29 folic acid 1 mg tablet 2023 024 [facility], [address], [address], 03/16/2024 16:53:27 Patient TargetsNo targets recorded. Patient InstructionsNo instructions recorded. Reason for Referral None Reported. Results Created Date Observation Date Name Description Value Unit Range Abnormal Flag Note LastModifiedBy Organization Detail LastModifiedTime 04/09/20 24 04/17/2024 PATHO LOGY SPECI MEN pathology specimen SEE ZHANNA GARCIA Not Available [facility] ([facility]) [address], [place], [address], 04/17/2024 21:20:51 Result Notes None recorded. Problems Name Problem SNOMED Code Status Onset Date Resolution Date Notes Provider Name and Address Organization Details Recorded Time Ulcerative colitis 72418353 Active 2023 Blake Dunham PA-C [address], [place], [address] , [facility] & [place] 4 16:47:57 Dysphagia 80095978 Active 2023 Blake Dunham PA-C [address], [place], [address] , [facility] & [place] 4 16:52:30 Montes's esophagus 176131333 Active 2023 Blake Dunham PA-C [address], [place], [address] , [facility] & [place] 4 11:04:13 Problem Notes None recorded. Medical Equipment None Reported. Medications Name Sig Start Date Stop Date Status Note LastModified by Organization Details LastModified Time atorvastatin 40 mg tablet TAKE 1 TABLET BY MOUTH AT BEDTIME FOR CHOLESTEROL active Not Available Not Available Not Available sulfasalazin e 500 mg tablet TAKE 2 TABLETS BY MOUTH TWICE DAILY active Not Available Not Available No t Available tizanidine 2 mg tablet TAKE 1 TABLET BY MOUTH THREE TIMES DAILY NEEDED FOR MUSCLE SPASTICITY active Not Available Not Available N ot Available ondansetron HCl 8 mg tablet TAKE 1 TABLET BY MOUTH EVERY 8 HOURS active Not Available Not Available No t Available sertraline 100 mg tablet TAKE 1 TABLET BY MOUTH ONCE DAILY active Not Available Not Available No t Available tramadol 50 mg tablet TAKE 1 TABLET BY MOUTH THREE TIMES DAILY NEEDED FOR PAIN active Not Available Not Available No t Available triamcinolon e acetonide 0.1 % topical cream APPLY CREAM EXTERNALLY TWICE DAILY TO AFFECTED AREAS ON BODY FOR 2 WEEKS (AVOID THE FACE, ARMPITS, AND GROIN) active Not Available Not Available N ot Available bisoprolol fumarate 5 mg tablet TAKE 1 TABLET BY MOUTH ONCE DAILY active Not Available Not Available No t Available oxycodone-ac etaminophen 5 mg-325 mg tablet TAKE 1 TABLET BY MOUTH EVERY 8 HOURS NEEDED FOR PAIN active Not Available Not Available No t Available amitriptylin e 25 mg tablet TAKE 1 TABLET BY MOUTH ONCE DAILY FOR SLEEP active Not Available Not Available No t Available bupropion HCl 75 mg tablet TAKE 1 TABLET BY MOUTH ONCE DAILY active Not Available Not Available No t Available omeprazole 20 mg capsule,allison yed release TAKE 1 CAPSULE BY MOUTH ONCE DAILY active Not Available Not Available No t Available folic acid 1 mg tablet TAKE 1 TABLET BY MOUTH ONCE DAILY active Not Available Not Available No t Available fluoxetine 20 mg capsule TAKE 1 CAPSULE BY MOUTH ONCE DAILY active Not Available Not Available No t Available sertraline 50 mg tablet TAKE 1 TABLET BY MOUTH ONCE DAILY active Not Available Not Available No t Available doxycycline hyclate 100 mg tablet TAKE 1 TABLET BY MOUTH TWICE DAILY FOR 7 DAYS active Not Available Not Available No t Available oxycodone 5 mg tablet TAKE 1 TABLET BY MOUTH TWICE DAILY active Not Available Not Available No t Available peg 3350-electro lytes 236 gram-22.74 gram-6.74 gram-5.86 gram solution TAKE DIRECTED active Not Available Not Available No t Available Vitals Date Recorded Body weight Body mass index (BMI) Body height Body temperature Oxygen saturation Oxygen saturation in Arterial blood by Pulse oximetry Heart rate Heart rate Systolic blood pressure Diastolic blood pressure Provider Name and Address Organization Details Last Updated DateTime 4 14322.9 1 g 25.4 kg/m2 165.1 cm 98.2 [degF] 98 % 98 % 93 /min 85 /min 128 mm[Hg] 85 mm[Hg] Vicente Robbins [facility] & [place] 13:32:37 Social History Question Answer Notes LastModified by [employer] Details LastModified Time Tobacco Smoking Status Never Smoker José Luisorestesdanielle Robbins [facility] 03/16/2024 13:33:57 What Is Your Level Of Caffeine Consumption? Occasional Information not available 03/16/2024 Sex: Unknown Functional Status Question Answer Note LastModified by Organizat ion Details LastModified Time Do you use any illicit or recreational drugs? No [email or web address] Information not available 03/16/2024 What is your level of alcohol consumption? None [email or web address] Information not available 03/16/2024 Mental Status None recorded. Family History Nothing Reported. Medical History No medical history recorded. Gynecological HistoryNo gynecological history recorded. Obstetrics History GPAL:G 0 P 0 0 0 0 Past Encounters Encounter ID Performer Location Encounter Start Date Encounter Closed Date Diagnosis/Indication Diagnosis SNOMED-CT Code Diagnosis ICD10 Code Diagnosis Note [id number] Blake Dunham PA-C [facility] [address] [address] 03/16/2024 13:04:19 03/16/2024 14:05:10 Ulcerative colitis 04074193 K51.90 Dysphagia 27401983 R13.1 0 [id number] Blake Dunham PA-C [facility] [address] [address] 05/06/2024 10:57:36 05/06/2024 11:06:13 Ulcerative colitis 36265868 K51.90 Dysphagia 32654486 R13.1 0 Montes's esophagus 3029 [address] K22.70 Health Concerns Section Related Observation LastModified by Organization Detai ls LastModified Time None Recorded Concern Status LastModified by Organization Details LastModified Time None Recorded Advance Directives Directive None Recorded Payers Insurance Date Sequence Insurance Name Policy Number Policy Melendrez Covered Member ID Melendrez Member ID Guarantor Name 05/10/2024 1 [place]MEDICARE [place]PLACEMENT HMO) [id number] Lesly Rodas [id number] Notes Date Note Type Note Provider Name and Address Organization Details Recorded Time 03/16/2024 text/html Ms. Rodas is a very pleasant 68-year-old female with PMH of ulcerative colitis diagnosed several years ago who was referred by Dr. Boateng for evaluation of recent dysphagia as well to establish care for IBD. She reports prior use of Humira and Remicade for UC. She had a severe flare of symptoms with severe inflammation noted in the rectum to proximal transverse colon in 2014 and was hospitalized and treated with steroids. She has been well controlled with use of Sulfasalazine alone for several years now. She was previously established with Dr. Tr Mccracken and last underwent colonoscopy July 2022 per her report with recommendation to repeat in 3 years. She states her colon was normal at that time.She recent has complained of dysphagia to solids and medications high in the throat. She reports a history of esophageal dilation over 15 years ago. She denies heartburn or chest pain. Blake Dunham PA-C [address], [place], [address], [facility] & [place] 03/16/2024 16:54:06 05/06/2024 text/html PREVIOUS (): Ms. Rodas is a very pleasant 68-year-old female with PMH of ulcerative colitis diagnosed several years ago who was referred by Dr. Boateng for evaluation of recent dysphagia as well to establish care for IBD. She reports prior use of Humira and Remicade for UC. She had a severe flare of symptoms with severe inflammation noted in the rectum to proximal transverse colon in 2014 and was hospitalized and treated with steroids. She has been well controlled with use of Sulfasalazine alone for several years now. She was previously established with Dr. Tr Mccracken and last underwent colonoscopy July 2022 per her report with recommendation to repeat in 3 years. She states her colon was normal at that time.She recent has complained of dysphagia to solids and medications high in the throat. She reports a history of esophageal dilation over 15 years ago. She denies heartburn or chest pain. CURRENT (05/06/24): Ms. Rodas presents via telephonic encounter today for procedure follow-up. She underwent EGD with empiric dilation last month. Her dysphagia has persisted. Pathology showed mild reflux related changes of the mid and distal esophagus as well as focal intestinal metaplasia involving the distal esophagus without dysplasia. She reports 45 lb weight loss earlier in the year and has not had much heartburn since that time. I spent a total of 8 minutes during this real-time clinical encounter that was initiated by the patient which started at 1102 and ended at 1110. Consent was obtained to engage in telephonic service. Greater than 50% of the time spent was devoted to counseling and coordinating care including review of patient record, patient lab data and studies as well as discussing diagnostic evaluation and workup, planned therapeutic intervention and further disposition of care. The patient requested telephonic encounter today due to difficulty making it in to the office and due to limited capability for televideo conferencing. Blake Dunham PA-C [address], [place], [address], [facility] - [facility] & [place] 05/06/2024 11:28:43 OBGyn Episode No OBEpisode recorded.
--- OUTSIDE RECORDS SUMMARY | 2024-12-24 13:42 | XMS_ITS | Continuity of Care Document ---
Author Organization [facility] KRISTEN Sanchez [facility] [place] Address [address] [place] [address] Care Team Providers Care Retail Brand Ambassador Name Role Phone ASHLEY SANTIZO Reinsurance Claims Analyst Assessment No assessment recorded. Plan of Treatment Reminders Order Date Submit Date Provider Last Modified By Organization Details Last Modified Time Details Appointments FOLLOW UP [facility] 2024 01:10P M ASHLEY SANTIZO MD Not available Not available Not available FOLLOW UP [facility] 2025 01:00P M ASHLEY SANTIZO MD Not available Not available Not available Lab None recorded . Referral None recorded . Procedures None recorded . Surgeries None recorded . Imaging None recorded . Medication Orders None recorded . Patient TargetsNo targets recorded. Patient InstructionsNo instructions recorded. Reason for Referral None Reported. Problems Name Problem SNOMED Code Status Onset Date Resolution Date Notes Provider Name and Address Organization Details Recorded Time Intestina l obstructi on due to ulcerativ e colitis 52561136846 24105 Active 2015 From Automated Load;Prov ider: Abena Nayak; atus: Active Not Available [facility] 7 07:09:53 Digital mucous cyst 593296868 Active 2023 Arlin Garcia [facility] 4 13:15:46 Digital mucous cyst 260120908 Active 2023 Arlin Garcia [facility] 4 13:17:06 Actinic keratosis 764622182 Active 2023 Arlin Garcia [facility] 4 13:18:55 Inflamed seborrhei c keratosis 414882664 [facility] 13:19:28 Abdominal pain 38641141 Active 2015 From Automated Load;Prov ider: Abena Nayak;St atus: Active Not Available [facility] 6 00:50:36 Ulcerativ e colitis 88477446 Active 2015 From Automated Load;Prov ider: Abena Nayak;St atus: Active Not Available [facility] 6 00:50:36 Problem Notes None recorded. Procedures Surgical History Date Name Laterality Status Provider Name and Address Organization Details Recorded Time 12/03/19 25 DAK - Cryo AK completed Miranda Pimentel [facility] 12/02/2024 13:17:30 06/10/20 24 DAK - Cryo AK completed Jose [facility] 06/10/2024 13:27:30 06/10/20 24 DAK - Cosmetic Clean Up completed Jose [facility] 06/10/2024 13:32:21 12/10/19 24 DAK - Cryo AK completed [facility] 12/10/2023 10:02:43 08/13/19 24 Destruction Premalignant Lesion(s) completed [facility] 08/13/2023 13:19:21 08/13/19 24 Destruction BN Lesions completed [facility] 08/13/2023 13:18:52 Imaging Results None recorded. Procedure Notes None recorded. Medical Equipment None Reported. Allergies No known drug allergies Medications Name Sig Start Date Stop Date Status Note LastModified by Organization Details LastModified Time atorvasta tin 40 mg tablet TAKE 1 TABLET BY MOUTH AT BEDTIME 12/09 completed Not Available Not Available Not Available sulfasala zine 500 mg tablet TAKE 2 TABLETS BY MOUTH TWICE DAILY active Not Available Not Available No t Available tizanidin e 2 mg tablet TAKE 1 TABLET BY MOUTH THREE TIMES DAILY NEEDED FOR MUSCLE SPASTICI TY 08/13 completed Not Available Not Available Not Available tizanidin e 4 mg tablet TAKE 1 TABLET BY MOUTH THREE TIMES DAILY NEEDED FOR MUSCLE SPASTICI TY 08/13 completed Not Available Not Available Not Available clonazepa m 0.5 mg tablet TAKE 1 TABLET BY MOUTH TWICE DAILY FOR ANXIETY 12/09 completed Not Available Not Available Not Available fluoroura cil 5 % topical cream APPLY A SUFFICIE NT AMOUNT TO COVER THE LESIONS IN THE AFFECTED AREA(S) BY TOPICAL ROUTE 2 TIMES PER DAY x 14 DAYS 2024 active Not Available Not Available Not Avai lable sertralin e 100 mg tablet TAKE 1 TABLET BY MOUTH ONCE DAILY 12/09 completed Not Available Not Available Not Available Remicade 100 mg intraveno us solution As Directed 05/14 completed Instruct ions: 5mg/kg to be infused at 0,2,4 and 8 then q 8 weeks;Fr equency: as direct.; Medicati on Descript ion: inflixim ab; Dosage:a s directed ; Route:in travenou s; refills: 0; Quantity :6 powder for injectio n Not Available Not Available Not Available triamcino lone acetonide 0.1 % topical cream APPLY CREAM EXTERNAL LY TWICE DAILY TO AFFECTED AREAS ON BODY FOR 2 WEEKS (AVOID THE FACE, ARMPITS, AND GROIN) 06/10 completed Not Available Not Available Not Available bisoprolo l fumarate 5 mg tablet TAKE 1 TABLET BY MOUTH ONCE DAILY 12/09 completed Not Available Not Available Not Available amitripty line 25 mg tablet TAKE 1 TABLET BY MOUTH ONCE DAILY AT NIGHT active Not Available Not Available No t Available oxycodone -acetamin ophen 10 mg-325 mg tablet TAKE 1 TABLET BY MOUTH ONCE DAILY 08/13 completed Not Available Not Available Not Available gabapenti n 300 mg capsule TAKE 1 CAPSULE BY MOUTH THREE TIMES DAILY FOR NEUROPAT HY 12/09 completed Not Available Not Available Not Available ipratropi um bromide 42 mcg (0.06 %) nasal spray USE 2 SPRAY(S) IN EACH NOSTRIL NEEDED 08/13 completed Not Available Not Available Not Available fluoxetin e 20 mg capsule TAKE 1 CAPSULE BY MOUTH ONCE DAILY 12/09 completed Not Available Not Available Not Available dicyclomi ne 10 mg capsule TAKE 1 CAPSULE BY MOUTH EVERY 6 HOURS NEEDED FOR PAIN 05/14 completed Not Available Not Available Not Available oxycodone 5 mg tablet TAKE 1 TABLET BY MOUTH TWICE DAILY 08/13 completed Not Available Not Available Not Available neomycin- polymyxin -hydrocor t 3.5 mg-10,000 unit/mL-1 % ear drops,kathie p INSTILL 2 DROPS INTO AFFECTED EAR ONCE DAILY 12/09 completed Not Available Not Available Not Available Zoloft 12/09 completed Medicati on Descript ion: sertrali ne; Route:or al; refills: 0 Not Available Not Available Not Available Fish Oil 08/13 completed Medicati on Descript ion: omega-3 polyunsa turated fatty acids; Route:or al; refills: 0 Not Available Not Available Not Available Vitamin D3 Every week 12/09 completed Frequenc y: Every week;Med ication Descript ion: cholecal ciferol; Dosage:1 ; Route:or al; refills: 3; Quantity :4 capsule Not Available Not Available Not Available multivita min active Not Available Not Available Not Available Lialda 1.2 gram tablet,de layed release Two times a day 08/13 completed Duration : 90 days;Milan quency: bid;Medi cation Descript ion: mesalami ne; Dosage:2 ; Route:or al; refills: 3; Quantity :360 delayed release tablet Not Available Not Available Not Available Extentabs 48.6 mg-0.3111 mg-0.0582 mg tablet,ex tended release Two times a day 05/14 completed Frequenc y: bid;Medi cation Descript ion: atropine /hyoscya mine/PB/ scopolam ine; Dosage:1 ; Route:or al; refills: 0; Quantity :60 tablet, extended release Not Available Not Available Not Available Suprep Bowel Prep Kit 17.5 gram-3.13 gram-1.6 gram oral solution TAKE DIRECTED 05/14 completed Not Available Not Available Not Available Vitals None Recorded Social History Question Answer Notes LastModified by Organizat ion Details LastModified Time Tobacco Smoking Status Never Smoker CRYSTAL Mendes [facility] 05/14/2022 14:17:36 What Was The Date Of Your Most Recent Tobacco Screening? 12/02/2024 [email or web address] Information not available 12/02/2024 Has Tobacco Cessation Counseling Been Provided? No Information not available 05/14/2022 Have You Recently Traveled Abroad? No Information not available 05/14/2022 Sex: Unknown Functional Status Question Answer Note LastModified by Organizat ion Details LastModified Time Do you use any illicit or recreational drugs? No Information not available 05/14/2022 Do you or have you ever used any other forms of tobacco or nicotine? No Information not available 05/14/2022 What is your level of alcohol consumption? None Information not available 05/14/2022 Mental Status None recorded. Family History Relationship Description Onset Age of this Age Resolved Age Notes LastModified by Organization Details LastModified Time Mother Hearing loss Not avail able 05/14/2022 14:17:13 Mother Hypertensive disorder Not available 2021 14:17:22 Father Malignant tumor of colon [email or web address] Not available 12/09 09:49:47 Paternal Grandfather Malignant tumor of colon [email or web address] Not available 12/09 09:49:47 Paternal Uncle Malignant tumor of colon [email or web address] Not available 12/09 09:49:47 Medical History Condition Response Anxiety Disorder Y Arthritis Y Skin Cancer Other Skin Condition Gynecological HistoryNo gynecological history recorded. Obstetrics History GPAL:G 0 P 0 0 0 0 Past Encounters Encounter ID Performer Location Encounter Start Date Encounter Closed Date Diagnosis/Indication Diagnosis SNOMED-CT Code Diagnosis ICD10 Code Diagnosis Note [id number] October MD DARLYN [address] [address] 12/02/2024 12:26:34 12/02/2024 13:26:21 History of malignant neoplasm of skin 121646676 Z85.828 Scar is clear. Well healed scar. No evidence of recurrence . Actinic keratosis 491158 007 L57.0 Precancero us lesion(s). Will LN2 today.Can leave a white discolorat ion in the areas when LN2 is performed. Follow-up if lesion(s) persists or do not resolve.Fo llow up in 6 months for recheck. Lentiginosis 787646250 L 81.4 Continue to monitor for changes in size, shape and color.Retu rn to care if lesion becomes bothersome or if changes occur. Multiple b enign melanocytic nevi 272500958 D22.9 L82.1 I78.1 L81.4 Benign appearing lesions.Co ntinue to monitor and follow-up with any or changing lesions.Re commend to wear SPF 30+ with zinc or titanium oxide cream daily. Prefers lotions/cr eams over sprays.Fol low up in 1 year for a full skin exam. Health Concerns Section Related Observation LastModified by Organization Detai ls LastModified Time None Recorded Concern Status LastModified by Organization Details LastModified Time None Recorded Payers Encounter Date Sequence Insurance Name Policy Number Policy Melendrez Covered Member ID Melendrez Member ID Guarantor Name 12/02/2024 1 [place] (MEDICARE REPLACEMENT HMO) [id number] Lesly Rodas [id number] Lesly Rodas Notes Date Note Type Note Provider Name and Address Organization Details Recorded Time 12/02/2024 text/html I am here for my skin check. History of SCCL shoulder PT has a spot in the center of her bottom lip. ASHLEY SANTIZO MD [facility] [place], [address], [facility] 12/05/2024 16:31:51 OBGyn Episode No OBEpisode recorded.
--- OUTSIDE RECORDS SUMMARY | 2024-12-24 13:42 | XMS_ITS | Data Portability ---
Author Organization [facility] [place] Address [address] [place] [address] Care Team Providers Care Accounts Payable Representative Name Role Phone ASHLEY LARSEN Industrial Designer Assessment No assessment recorded. Plan of Treatment Reminders Order Date Submit Date Provider Last Modified By Organization Details Last Modified Time Details Appointments FOLLOW UP [facility] 2024 01:10P M ASHLEY LARSEN MD Not available Not available Not available FOLLOW UP [facility] 2025 01:00P M ASHLEY LARSEN MD Not available Not available Not available Lab None recorded. Referral None recorded. Procedures None recorded. Surgeries None recorded. Imaging None recorded. Medication Orders fluoroura cil 5 % topical cream 2024 025 [email or web address] [id number], [address] [place], [address], 08/10/2024 14:13:34 Patient TargetsNo targets recorded. Patient InstructionsNo instructions recorded. Reason for Referral None Reported. Problems Name Problem SNOMED Code Status Onset Date Resolution Date Notes Provider Name and Address Organization Details Recorded Time Intestina l obstructi on due to ulcerativ e colitis 10083238039 43613 Active 2015 From Automated Load;Prov ider: Kim Nayak atus: Active Not Available [facility] 7 07:09:53 Digital mucous cyst 874054717 Active 2023 Arlin Garcia [facility] 4 13:15:46 Digital mucous cyst 152208302 Active 2023 Arlin Garcia [facility] 4 13:17:06 Actinic keratosis 560054430 [facility] 13:18:55 Inflamed seborrhei c keratosis 663089844 Active 2023 [facility] 4 13:19:28 Abdominal pain 42123703 Active 2015 From Automated Load;Prov ider: Abena Nayak;St atus: Active Not Available [facility] 6 00:50:36 Ulcerativ e colitis 61452710 Active 2015 From Automated Load;Prov ider: Abena Nayak;St atus: Active Not Available [facility] 6 00:50:36 Problem Notes None recorded. Procedures Surgical History Date Name Laterality Status Provider Name and Address Organization Details Recorded Time 12/03/19 25 DAK - Cryo AK completed Miranda Pimentel [facility] 12/02/2024 13:17:30 06/10/20 24 DAK - Cryo AK completed Josetacos Tobar [facility] 06/10/2024 13:27:30 06/10/20 24 DAK - Cosmetic Clean Up completed Jose Tobar [facility] 06/10/2024 13:32:21 12/10/19 24 DAK - Cryo AK completed Jose [facility] 12/10/2023 10:02:43 08/13/19 24 Destruction Premalignant Lesion(s) completed [facility] 08/13/2023 13:19:21 08/13/19 24 Destruction BN Lesions completed [facility] 08/13/2023 13:18:52 Imaging Results None recorded. [...] LastModified Time Tobacco Smoking Status Never Smoker Donna woody, [facility] 05/14/2022 14:17:36 What Was The Date Of [...] 2021 14:17:22 Father Malignant tumor of colon [email or web address] Not available 12/09 09:49:47 Paternal Grandfather Malignant tumor of colon [email or web address] Not available 12/09 09:49:47 Paternal Uncle Malignant tumor of colon [email or web address] Not available 12/09 09:49:47 Medical History Condition Response Anxiety Disorder Y Skin Cancer Arthritis Y Other Skin Condition Gynecological HistoryNo gynecological history recorded. Obstetrics History GPAL:G 0 P 0 0 0 0 Past Encounters Encounter ID Performer Location Encounter Start Date Encounter Closed Date Diagnosis/Indication Diagnosis SNOMED-CT Code Diagnosis ICD10 Code Diagnosis Note [id number] MD [facility]YSTAL [facility] [address] [place] [address] 05/14/2022 13:58:18 05/22/2022 16:15:18 Lipoma of head 9836882630 89495 D17.0 - forehead Nasal congestion 5544628 0 R09.81 Bleeding from nose 46529 6005 R04.0 Vasomotor rhinitis 76441 03 J30.0 [id number] STEPAN KENNEDY MD [facility] [place] [address] [place] [address] 08/13/2023 12:47:27 08/14/2023 16:12:46 Digital mucous cyst 784592850 M71.349 dx was discussed. can see Dr. Elena Jean Baptiste MD for this. patient has seen her in the past for this. Actinic keratosis [address]7 [address]57.0 [address]2 today. no wound careRTC if this does not resolve Inflamed s eborrheic keratosis 489247792 L82.0 benign appearing. patient would like LN2.no wound care. [id number] ASHLEY LARSEN MD [facility] [place] [place] [address],[place] [address] 12/10/2023 09:22:45 12/10/2023 10:08:44 Multiple benign melanocytic nevi 672416053 D22.5 I78.1 L81.4 L82.1 Benign appearing lesions.Co ntinue to monitor and follow-up with any or changing lesions.Re commend to wear SPF 30+ with zinc or titanium oxide cream daily. Prefers lotions/cr eams over sprays.Fol low up in 6 months for a full skin exam. History of malignant neoplasm of skin 327415361 Z85.828 Scar is clear. Well healed scar. No evidence of recurrence . Actinic keratosis 007 L57.0 Precancero us lesion(s). Will LN2 today.Can leave a white discolorat ion in the areas when LN2 is performed. Follow-up if lesion(s) persists or do not resolve. Female pat tern alopecia 7895884 L64.8 The nature of the diagnosis was explained. Discussed correlatio n to thyroid.Re commend to consume at least 70 grams of protein daily.If needed, supplement with plant based protein shakes. Avoid animal based.Mike mmend Viviscal or Nutrafol hair supplement .Advised to stop taking supplement a week prior to getting bloodwork done. These supplement s can affect your thyroid and/or cardiac labs.Recom mend OTC Rogaine 5% topical foam daily. Can take up to 4 months to see progress. Must be used consistent ly. If stopped can lose progress. [id number] ASHLEY LARSEN MD [facility] [address] [place] [address] 06/10/2024 12:57:32 06/10/2024 13:45:56 Multiple benign melanocytic nevi 278696312 D22.5 I78.1 L81.4 L82.1 Benign appearing lesions.Co ntinue to monitor and follow-up with any or changing lesions.Re commend to wear SPF 30+ with zinc or titanium oxide cream daily. Prefers lotions/cr eams over sprays.Fol low up in 6 months for a full skin exam. History of malignant neoplasm of skin 117006186 Z85.828 Scar is clear. Well healed scar. No evidence of recurrence . Digital mu cous cyst of left hand 8409689847 570240 M67.442 Recurrent digital mucous cyst after excision.O ffered to referral for re-excisio n. She reports she will call Dr. Elena Jean Baptiste MD office for f/u. Actinic keratosis 007 L57.0 Precancero us lesion(s). Will LN2 today.Can leave a white discolorat ion in the areas when LN2 is performed. Follow-up if lesion(s) persists or do not resolve. Seborrheic keratosis 394 692523 L82.1 Benign over growths of skin. Reassuranc e given.Disc ussed $150 cosmetic cleanup for up to 15 lesions. This is an out-of-poc ket cost. She notes understand ing and opts to do this today.Can leave a white or dark discolorat ion in the areas when LN2 is performed. Lesions may persist. Will cont to get new ones.Takes 2-3weeks for lesions to slough after treatment. Do not scrub lesions after treatment. [id number] STEPAN KENNEDY MD [facility] [address] [place] [address] 08/10/2024 13:47:30 08/10/2024 15:11:02 Actinic keratosis L57.0 The nature of the diagnosis was discussed. Discussed LN2 vs 5FU. Pt elected to tx via 5FU.Recomm end rx 5FU topical cream apply to the back of the hands and face BID x 14 days. SE reviewed. GoodRx card given.Fup with change or concerns [id number] ASHLEY LARSEN MD [facility] [address] [place] [address] 12/02/2024 12:26:34 12/02/2024 13:26:21 History of malignant neoplasm of skin 058232395 Z85.828 Scar is clear. Well healed scar. No evidence of recurrence . Actinic keratosis 897508 007 L57.0 Precancero us lesion(s). Will LN2 today.Can leave a white discolorat ion in the areas when LN2 is performed. Follow-up if lesion(s) persists or do not resolve.Fo llow up in 6 months for recheck. Lentiginosis 109971783 L 81.4 Continue to monitor for changes in size, shape and color.Retu rn to care if lesion becomes bothersome or if changes occur. Multiple b enign melanocytic nevi 916434038 D22.9 L82.1 I78.1 L81.4 Benign appearing lesions.Co [...] Member ID Melendrez Member ID Guarantor Name 12/08/2024 1 [place]MEDICARE REPLACEMENT HMO) [id number] Lesly Rodas [id number] Lesly Rodas Notes Date Note Type Note Provider Name and Address Organization Details Recorded Time 08/13/2023 text/html OPS- I have a place on my finger. L 4th fingerI want her to look at my face. STEPAN KENNEDY MD [facility] [place], [address], [facility] 08/14/2023 07:11:54 12/10/2023 text/html I am here for my skin check. History of SCCL shoulder ASHLEY LARSEN MD [address] [place], [address], [facility] 12/12/2023 06:46:00 06/10/2024 text/html I am here for my skin check. History of SCCL shoulder pt reports spot of concern on L ring finger, requesting LN2 ASHLEY LARSEN MD [address] [place] [address], [phone], [facility] 06/10/2024 13:40:23 08/10/2024 text/html Spot under R eye , it has become sore in the last few months. I forgot to show it to Dr. Larsen at my annual. STEPAN KENNEDY MD [address] [place] [address], [phone], [facility] 08/10/2024 14:51:40 12/02/2024 text/html I am here for my skin check. History of SCCL shoulder PT has a spot in the center of her bottom lip. ASHLEY LARSEN MD [address] [place] [address], [phone], [facility] 12/05/2024 16:31:51 OBGyn Episode No OBEpisode recorded.
== END 2024-12-23 23:59 | disposition home or self-care (01) ==
LOC: LAB.DROPOF 12-24 13:41
PROVIDERS: PCP Family Medicine; Visit Provider Family Medicine
DX: E78.2 Mixed hyperlipidemia (principal); K51.80 Other ulcerative colitis without complications
CPT/HCPCS: 80053; 80061; 85025

== ENCOUNTER 2025-01-05 14:04 | Outpatient (CLI) | payer MEDICARE, SELFPAY ==
--- OUTSIDE RECORDS SUMMARY | 2025-01-05 14:11 | XMS_ITS | Clinical Summary ---
Author Organization [facility] Address [address] [facility] [address] [place] [address] Phone Care Team Providers Care [place] Bus Driver Name Role Phone Gunnar BELL, Fiordaliza Cam [ ] Conditions or Problems Problem Name Problem Code Onset Date Status Entry Date Provider Comment Standard Description Annotate Myalgia 75898840 (SNOMED CT) 09/11 Active 09/11 Fiordaliza Maher MD Muscle pain Arthralgias 91364804 (SNOMED CT) 09/11 Active 09/11 Fiordaliza Maher MD Pain of joint Elevated liver enzymes 704653927 (SNOMED CT) 09/03 Active 09/20 Fiordaliza Maher MD Liver enzymes outside reference range Candidiasis of skin 106311518 (SNOMED CT) 09/01 Active 09/01 Carla Rafat Candidiasis of skin and nails 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 733831751 (SNOMED CT) 08/26 Active 08/30 Carla Rafat Childhood granulomatous periorificial dermatitis Pulmonary infiltrate- fibronodular 37116217 (SNOMED CT) 08/26 Resolved 08/26 Fiordaliza Maher MD Disorder of lung Pulmonary infiltrates- reticulonodu lar, acute vs chronic 393176196 (SNOMED CT) 08/26 Active 08/30 Fiordaliza Maher MD Asthmatic pulmonary eosinophilia 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 941028414 (SNOMED CT) 08/26 Inactive 08/30 Fiordaliza Maher MD Granulomatous disorder Pulmonary infiltrate- fibronodular 37346950 (SNOMED CT) 08/26 Removed 08/26 Fiordaliza Maher MD Disorder of lung Alopecia 71772397 (SNOMED CT) 08/17 Active 08/17 Fiordaliza Maher MD Alopecia Pruritus 624275858 (SNOMED CT) 08/17 Active 08/17 Fiordaliza Maher MD Pruritic disorder Chest pain, intermittent 29295988 (SNOMED CT) 08/17 Active 08/17 Fiordaliza Maher MD Chest pain Ulcerative colitis 66081387 (SNOMED CT) 08/17 Active 08/17 Fiordaliza Maher MD 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 641591915 (SNOMED CT) 08/17 Active 08/17 Fiordaliza Maher MD Drug therapy finding Histoplasma capsulatum, without mention of manifestatio n 70788310 (SNOMED CT) 08/17 Active 08/17 Fiordaliza Maher MD 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 09/03 METHYLPREDNISOLONE 34572733571 Fiordaliza Maher MD FLUCONAZOLE 200 MG TABS 2 daily for 10 days 08/17 FLUCONAZOLE 43112460928 Fiordaliza Maher MD REMICADE 100 MG SOLR every 8 weeks 08/17 INFLIXIMAB 77108605009 Fiordaliza Maher MD METHYLPREDNISOLONE 4 MG TABS For 3 additional days. 09/03 METHYLPREDNISOLONE 79599082411 Fiordaliza Maher MD METHYLPREDNISOLONE 4 MG TABS For 3 additional days. 09/03 METHYLPREDNISOLONE 82319923834 Domonique Shields FLUCONAZOLE 200 MG TABS 2 daily for 10 days 08/17 FLUCONAZOLE 78159882795 Fiordaliza Maher MD TYLENOL 325 MG CAPS Take/use as needed. 08/17 ACETAMINOPHEN 81974496685 Megan Morguelan EQL FISH OIL 1000 MG CAPS by mouth twice daily 08/17 OMEGA-3 FATTY ACIDS 07391339489 Meganjuan miguel Robertselan AMOXICILLIN 500 MG TABS by mouth every 6 hrs 08/17 AMOXICILLIN 77759645960 Meganjuan miguel Robertselan LIALDA 1.2 GM TBEC 2 tabs by mouth twice daily 08/17 MESALAMINE 14126273922 Megan Morguelan REMICADE 100 MG SOLR every 8 weeks 08/17 INFLIXIMAB 57829717016 Megan Morguelan Medications Administered No information available. Allergies, Adverse Reactions, Alerts Allergy Name Reaction Description Start Date Severity Statu s Provider ANTI-REJECTION DRUG, PRESCRIBED BY DR. MARTE severe pancreatitis Critical Active Gabrimarek Eastguelan Results Date Name Value Unit Range Flag Description Lab Report: MANUAL DIFFERENT IAL BASOABSOLMAN 0.05 10*3/MM3 {Cells}/ uL 0.00-0.20 basophils, absolute, manual EOSINPABSMAN 0.27 10*3/MM3 {Cells}/ uL 0.10-0.30 eosinophils, absolute, manual MONOCYTABMAN 0.81 10*3/MM3 {Cells}/ uL 0.00-1.00 monocytes, absolute, manual LYMPHSABSMAN 0.92 10*3/MM3 {Cells}/ uL 0.60-4.80 lymphocytes, absolute, manual NEUT CT MANU 3.23 10*3/mm3 1.50-8.30 neutr ophil count, blood, manual BASO % MANU 1.0 % 0.0-1.0 basophils as percent of blood leukocytes, manual count EOS % MANU 5.0 % 0.0-3.0 H eosinophil s as percent of blood leukocytes, manual count MONOS % MANU 15.0 % 0.0-12.0 H monocyt es as percent of blood leukocytes, manual count LYMPH % MANU 17.0 % 24.0-44.0 L lympho cytes as percent of blood leukocytes, manual count PMN%(MANUAL) 46.0 41.0-71.0 neutro phils, polymorphonuclear as percent of blood leukocytes, manual count Lab Report: CBC WITH AUTO DI FFERENTIAL IMMATUREGRAN 0.01 10*3/MM3 0.00-0.03 Immature granulo cytes [#/volume] in Blood BASO# 0.01 10*3/mm3 0.00-0.20 Basophils [#/vol ume] in Blood EOS ABSLT 0.19 10*3/uL 0.10-0.30 Eosinophi ls [#/volume] in Blood MONOSCT AUTO 0.72 10*3/uL 0.00-1.00 Monocy fiorella [#/volume] in Blood by Automated count LYMPHCT AUTO 2.03 10*3/mm3 0.60-4.80 Lymph ocytes [#/volume] in Blood by Automated count ABS NEUTROPH 5.31 10*3/uL 1.50-8.30 Neutro phils [#/volume] in Blood IMM GRANU % 0.1 % 0.0-0.6 Immature granulocytes/100 leukocytes in Blood [id number] 0.1 % 0.0-1.0 GE use only - for [employer] import when terms are not otherwise specified % EOS AUTO 2.3 % 0.0-3.0 Eosinophil s/100 leukocytes in Blood by Automated count MONOCYTE % 8.7 % 0.0-12.0 Monocytes /100 leukocytes in Blood by Automated count LYMPHOCY BF 24.5 % 24.0-44.0 lymphoc ytes as percent of body fluid leukocytes PMN % 64.3 % 41.0-71.0 Neutrophils /100 leukocytes in Blood by Automated count PLATELETS 275 10*3/mm3 150-450 Platelets [#/volume] in Blood by Automated count RDW 17.5 % 11.3-14.5 H Erythrocyte distribution width [Ratio] by Automated count MCHC 32.1 G/DL 32.0-36.0 MCHC [Mass/ volume] by Automated count MCH 26.0 pg 27.0-31.0 L MCH [Entiti c mass] by Automated count MCV 81.0 fL 80.0-99.0 MCV [Entiti c volume] by Automated count HCT 39.2 % 34.5-44.0 Hematocrit [Volume Fraction] of Blood by Automated count HGB 12.6 g/dL 11.5-15.5 Hemoglobin [Mass/volume] in Blood RBC 4.84 10*6/mm3 3.89-5.14 Erythrocyt es [#/volume] in Blood by Automated count WBC 8.27 10*3/mm3 3.50-10.8 0 Leukocytes [#/volume] in Blood by Automated count Lab Report: SEDIMENTATION RA TE ESR 12 mm/h 0-30 Erythrocyte sedimentation rate by Westergren method Lab Report: C-REACTIVE PROTE IN CRPCARDRISK 4.50 MG/DL 0.00-10.0 0 C reactive protein [Mass/volume] in Serum or Plasma Lab Report: CK CPK 52 U/L 26-174 Creatine juan se [Enzymatic activity/volume] in Serum or Plasma Lab Report: COMPREHENSIVE ME TABOLIC PANEL ANIONGAP -3.0 mmol/L 3.0-11.0 L anion gap, serum BUN/CREAT 30.0 7.0-25.0 H Urea nitrogen/Creatinine [Mass Ratio] in Serum or Plasma GFRC 85 mL/min/1 .73m2 >60 Glomerular Filtratio n Rate Calculation BILI TOTAL 0.2 mg/dL 0.3-1.2 L Bilirubin. total [Mass/volume] in Serum or Plasma ALK PHOS 96 U/L 25-100 Alkaline jeff sphatase [Enzymatic activity/volume] in Blood SGOT (AST) 43 U/L 0-33 H Aspartate aminotransferase [Enzymatic activity/volume] in Serum or Plasma SGPT (ALT) 63 U/L 7-40 H Alanine aminotransferase [Enzymatic activity/volume] in Serum or Plasma ALBUMIN 4.60 g/dL 3.20-4.80 Albumin [Ma ss/volume] in Serum or Plasma PROTEIN, TOT 7.1 g/dL 5.7-8.2 Protein [Mass/volume] in Serum or Plasma CALCIUM 10.5 mg/dL 8.7-10.4 H Calcium [Moles/volume] in Serum or Plasma CO2 38.0 mmol/L 20.0-31.0 H Carbon diox miguel, total [Moles/volume] in Venous blood CHLORIDE 106 mmol/L 99-109 Chloride [Moles/volume] in Serum or Plasma POTASSIUM 4.8 mmol/L 3.5-5.5 Potassium [Moles/volume] in Serum or Plasma SODIUM 141 mmol/L 132-146 Sodium [Moles /volume] in Serum or Plasma CREATININE 0.70 mg/dL 0.60-1.30 Creatini ne [Mass/volume] in Serum or Plasma BUN 21 mg/dL 9-23 Urea nitrogen [Mass/volume] in Serum or Plasma GLUCOSE SER 97 mg/dL 70-100 Glucose [ Mass/volume] in Serum or Plasma Office Visit: 5 MEDS REVIEW Done Documenta tion of current medications (procedure) ORALTOBACUSE Never Tobacco smoking status SMOK STATUS Never smoker Tobacco smoking status Plan of Care Type Date Detail Referral CT Chest without contrast Referral CT Chest w/o con trast Pending order X-Ray, Chest, PA & Lateral Pending order CMP Pending order CBC W/Manual Dif f. Pending order C- reactive prot ein Pending order Sedimentation Ra te (ESR) Pending order CPK Pending order CMP Pending order CBC with Differe ntial Pending order C- reactive prot ein Pending order Sedimentation Ra te (ESR) Pending order CMP Pending order Hepatitis C Atb: (ICD 10 Code: Z11.59) Pending order CBC W/Manual Dif f. Pending order CMP Pending order C- reactive prot ein Pending order Sedimentation Ra te (ESR) Pending order Cryptococcus Ant igen Serum Pending order Other Pending order STAT Labs Pending order Fungal Blood cul tures in mariana isolator tubes Pending order Histoplasmosis U rinary AG Pending order Blastomyces Urin ally Antigen Pending order X-Ray, Chest, PA & Lateral Procedures Code Procedure Name Date Entry Date CPT-45602 CMP CPT-cbcwmd CBC W/Manual Diff. 5 CPT-41577 C- reactive protein CPT-51630 Sedimentation Rate (ESR) 201 01/26/15 [id number], [id number] CPK CPT-58653 CMP [id number] CBC with Differential 2016 CPT-39882 C- reactive protein CPT-79538 Sedimentation Rate (ESR) 201 01/26/16 CPT-48690 CT Chest without contrast 13/08/15 CPT-85028 CMP CPT-65573 CT Chest w/o contrast 08/26 05907 Hepatitis C Atb: (ICD 10 Code: Z11.59) 20 12/06/29 CPT-cbcwmd CBC W/Manual Diff. 1 CPT-90363 CMP CPT-48425 C- reactive protein CPT-57538 Sedimentation Rate (ESR) 201 01/05/21 CPT-09853 Cryptococcus Antigen Serum 2 CPT-LAB Other CPT-sl STAT Labs CPT: fungblcx Fungal Blood cultures in mariana isolator tubes CPT-54266 Histoplasmosis Urinary AG 20 12/06/21 CPT-86941 Blastomyces Urinary Antigen CPT-10804 X-Ray, Chest, PA & Lateral 2 Vital Signs Date Name Value Unit Description BMI (Body Mass Index) 30.34 kg/m2 Bod y Mass Index (Ratio) Body Temperature 97.3 [degF] temperat ure E&M BP Diastolic 70 mm[Hg] blood pressu re, diastolic BP Systolic 116 mm[Hg] blood pressur e, systolic Heart Rate 80 /min pulse rate Respiratory Rate 16 /min respirat ory rate E&M Weight Measured 188 [lb_av] weight E& M Weight Measured 188 [lb_av] weight E& M Height 66 [in_us] height E&M Immunizations No information available. Advance Directives Directive Description Start Date NO DIRECTIVES AT THIS TIME
--- OUTSIDE RECORDS SUMMARY | 2025-01-05 14:12 | XMS_ITS | Data Portability ---
Author Organization [facility] Address [address] [place] [id number] Assessment Encounter Date Assessment Date Assessment LastModified [...] dilation. - Schedule EGD for further evaluation. [email or web address] Not available 03/16/2024 16:53:39 05/06/2024 05/06/2024 68-year-old [...] per above. f/u 1 year and PRN. [email or web address] Not available 05/06/2024 11:28:32 Plan of Treatment [...] 20 mg capsule,d elayed release 2023 024 [facility], [address], [address], 05/06/2024 11:05:08 sulfasala zine 500 mg tablet 2023 024 [facility], [address] [place], [address], 03/16/2024 16:53:29 folic acid 1 mg tablet 2023 024 [facility], [address], [address], 03/16/2024 16:53:27 Patient TargetsNo targets recorded. Patient InstructionsNo instructions recorded. Reason for Referral None Reported. Results Created Date Observation Date Name Description Value Unit Range Abnormal Flag Note LastModifiedBy Organization Detail LastModifiedTime 04/09/20 24 04/17/2024 PATHO LOGY SPECI MEN pathology specimen SEE ZHANNA GARCIA Not Available [facility] ([facility]) [address], [place], [address], 04/17/2024 21:20:51 Result Notes None recorded. Problems Name Problem SNOMED Code Status Onset Date Resolution Date Notes Provider Name and Address Organization Details Recorded Time Ulcerative colitis 56476167 Active 2023 Blake Dunham PA-C [address], [place], [address] , [facility] & [place] 4 16:47:57 Dysphagia 20427962 Active 2023 Blake Dunham PA-C [address], [place], [address] , [facility] & [place] 4 16:52:30 Montes's esophagus 900953368 Active 2023 Blake Dunham PA-C [address], [place], [address] , [facility] & [place] 4 11:04:13 Problem Notes None recorded. Medical [...] Address Organization Details Last Updated DateTime 4 71393.9 1 g 25.4 kg/m2 165.1 cm 98.2 [degF] 98 % 98 % 93 /min 85 /min 128 mm[Hg] 85 mm[Hg] Vicente Robbins [facility] & [place] 13:32:37 Social History Question Answer Notes LastModified by digitalbox Details LastModified Time Tobacco Smoking Status Never Smoker José Luisorestesdanielle Robbins [facility] 03/16/2024 13:33:57 What Is Your Level Of Caffeine Consumption? Occasional Information not available 03/16/2024 Sex: Unknown Functional Status Question Answer Note LastModified by Organizat ion Details LastModified Time Do you use any illicit or recreational drugs? No Information not available 03/16/2024 What is your level of alcohol consumption? None [email or web address] Information not available 03/16/2024 Mental Status None recorded. Family History Nothing Reported. Medical History No medical history recorded. Gynecological HistoryNo gynecological history recorded. Obstetrics History GPAL:G 0 P 0 0 0 0 Past Encounters Encounter ID Performer Location Encounter Start Date Encounter Closed Date Diagnosis/Indication Diagnosis SNOMED-CT Code Diagnosis ICD10 Code Diagnosis Note [id number] Blake Dunham PA-C [facility] [address] [address] 03/16/2024 13:04:19 03/16/2024 14:05:10 Ulcerative colitis 10935605 K51.90 Dysphagia 72467416 R13.1 0 [id number] Blake Dunham PA-C [facility] [address] [address] 05/06/2024 10:57:36 05/06/2024 11:06:13 Ulcerative colitis 10419803 K51.90 Dysphagia 01431322 R13.1 0 Montes's esophagus 3029 [address] K22.70 Health Concerns Section Related Observation LastModified [...] PLUS (MEDICARE REPLACEMENT HMO) [id number] Lesly Rodas [id number] Notes Date Note Type Note Provider [...] pain. Blake Dunham PA-C [address], [place], [address], [facility] & [place] 03/16/2024 16:54:06 05/06/2024 text/html PREVIOUS (): Ms. [...] conferencing. Blake Dunham PA-C [address], [place], [address], [facility] & [place] 05/06/2024 11:28:43 OBGyn Episode No OBEpisode recorded.
--- OUTSIDE RECORDS SUMMARY | 2025-01-05 14:12 | XMS_ITS | Encounter Summary ---
Author Organization Healthcare Address [address] [place] [address] Care Team Providers Care Commercial Manager Name Role Phone Florentin Cocrhan MD Primary Care Provider [phone] Encounter Details Date Type Department Care Team (Late st Contact Info) Description 03/18/2019 Abstract DSB [facility] [address] [place] [address] Dental, Provider, DDS [address] [place] [address] Social History Tobacco Use Types Packs/Day Years Used Date Smoking Tobacco: Never Assessed Comments Unknown Sex and Gender Information Value Date Recorded Sex Assigned at Not on file Legal Sex Female 8:34 PM EDT Gender Identity Not on file Sexual Orientation Not on file documented as of this encounter Plan of Treatment Not on file documented as of this encounter Visit Diagnoses Not on filedocumented in this encounter Care Teams Commercial Manager Relationship Specialty Start Date End Date Florentin Cochran MD [address] [place] [address] PCP - General 12/08/20 documented as of this encounter
--- OUTSIDE RECORDS SUMMARY | 2025-01-05 14:12 | XMS_ITS | Data Portability ---
Author Organization [facility] [place] [facility] Address [address] [facility] [address] [place] [address] Care Team Providers Care Lithographed Plate Inspector Name Role Phone ASHLEY LARSEN Manager Steel Assessment No assessment recorded. Plan of Treatment Reminders Order Date Submit Date Provider Last Modified By Organization Details Last Modified Time Details Appointments FOLLOW UP [facility] 2024 01:10P M ASHLEY LARSEN MD Not available Not available Not available FOLLOW UP [facility] 2025 01:00P M ASHLEY LARSEN MD Not available Not available Not available Lab None recorded. Referral None recorded. Procedures None recorded. Surgeries None recorded. Imaging None recorded. Medication Orders fluoroura cil 5 % topical cream 2024 025 [email or web address] [id number], [address] [place], [address], 08/10/2024 14:13:34 Patient TargetsNo targets recorded. Patient InstructionsNo instructions recorded. Reason for Referral None Reported. Problems Name Problem SNOMED Code Status Onset Date Resolution Date Notes Provider Name and Address Organization Details Recorded Time Intestina l obstructi on due to ulcerativ e colitis 70195019216 93793 Active 2015 From Automated Load;Prov ider: Kim Nayak atus: Active Not Available [facility] 7 07:09:53 Digital mucous cyst 575179369 Active 2023 Arlin Garcia [facility] 4 13:15:46 Digital mucous cyst 850654457 Active 2023 Arlin Garcia [facility] 4 13:17:06 Actinic keratosis 703599964 [facility] 4 13:18:55 Inflamed seborrhei c keratosis 173124776 Active 2023 [facility] 4 13:19:28 Abdominal pain 07262378 Active 2015 From Automated Load;Prov ider: Abena Nayak;St atus: Active Not Available [facility] 6 00:50:36 Ulcerativ e colitis 48968894 Active 2015 From Automated Load;Prov ider: Abena Nayak;St atus: Active Not Available [facility] 6 00:50:36 Problem Notes None recorded. Procedures Surgical History Date Name Laterality Status Provider Name and Address Organization Details Recorded Time 12/03/19 25 DAK - Cryo AK completed Miranda Pimentel [facility] [place] [facility] 12/02/2024 13:17:30 06/10/20 24 DAK - Cryo AK completed Josetacos Tobar [facility] [place] [facility] 06/10/2024 13:27:30 06/10/20 24 DAK - Cosmetic Clean Up completed Jose Tobar [facility] [place] [facility] 06/10/2024 13:32:21 12/10/19 24 DAK - Cryo AK completed Jose [facility] 12/10/2023 10:02:43 08/13/19 24 Destruction Premalignant Lesion(s) completed [facility] 08/13/2023 13:19:21 08/13/19 24 Destruction BN Lesions completed [facility] 08/13/2023 13:18:52 Imaging Results None recorded. Procedure [...] Smoking Status Never Smoker Donna woody, [facility] 05/14/2022 14:17:36 What Was The Date [...] 2021 14:17:22 Father Malignant tumor of colon [email or web address] Not available 12/09 09:49:47 Paternal Grandfather Malignant tumor of colon [email or web address] Not available 12/09 09:49:47 Paternal Uncle Malignant tumor of colon Not available 12/09 09:49:47 Medical History Condition Response Anxiety Disorder Y Skin Cancer Arthritis Y Other Skin Condition Gynecological HistoryNo gynecological history recorded. Obstetrics History GPAL:G 0 P 0 0 0 0 Past Encounters Encounter ID Performer Location Encounter Start Date Encounter Closed Date Diagnosis/Indication Diagnosis SNOMED-CT Code Diagnosis ICD10 Code Diagnosis Note [id number] MD [facility] [address] [place] [address] 05/14/2022 13:58:18 05/22/2022 16:15:18 Lipoma of head 4509240427 45336 D17.0 - forehead Nasal congestion 2473028 0 R09.81 Bleeding from nose 04052 6005 R04.0 Vasomotor rhinitis 14420 03 J30.0 [id number] STEPAN KENNEDY MD [facility] [place] [address] [place] [address] 08/13/2023 12:47:27 08/14/2023 16:12:46 Digital mucous cyst 133704109 M71.349 dx was discussed. can see Dr. Elena Jean Baptiste MD for this. patient has seen her in the past for this. Actinic keratosis [address]. no wound careRTC if this does not resolve Inflamed s eborrheic keratosis 081209434 L82.0 benign appearing. patient would like LN2.no wound care. [id number] ASHLEY LARSEN MD [facility] [address],[place] [address] 12/10/2023 09:22:45 12/10/2023 10:08:44 Multiple benign melanocytic nevi 001398902 D22.5 I78.1 L81.4 L82.1 Benign appearing lesions.Co ntinue to monitor and follow-up with any or changing lesions.Re commend to wear SPF 30+ with zinc or titanium oxide cream daily. Prefers lotions/cr eams over sprays.Fol low up in 6 months for a full skin exam. History of malignant neoplasm of skin 356375210 Z85.828 Scar is clear. Well healed scar. No evidence of recurrence . Actinic keratosis 007 L57.0 Precancero us lesion(s). Will LN2 today.Can leave a white discolorat ion in the areas when LN2 is performed. Follow-up if lesion(s) persists or do not resolve. Female pat tern alopecia 4490835 L64.8 The nature of the diagnosis was [...] consistent ly. If stopped can lose progress. [id number] ASHLEY LARSEN MD [facility] [address] [place] [address] 06/10/2024 12:57:32 06/10/2024 13:45:56 Multiple benign melanocytic nevi 996630567 D22.5 I78.1 L81.4 L82.1 Benign appearing lesions.Co ntinue to monitor and follow-up with any or changing lesions.Re commend to wear SPF 30+ with zinc or titanium oxide cream daily. Prefers lotions/cr eams over sprays.Fol low up in 6 months for a full skin exam. History of malignant neoplasm of skin 701715380 Z85.828 Scar is clear. Well healed scar. No evidence of recurrence . Digital mu cous cyst of left hand 6693939056 228406 M67.442 Recurrent digital mucous cyst after excision.O ffered to referral for re-excisio n. She reports she will call Dr. Elena Jean Baptiste MD office for f/u. Actinic keratosis 007 L57.0 Precancero us lesion(s). Will LN2 today.Can leave a white discolorat ion in the areas when LN2 is performed. Follow-up if lesion(s) persists or do not resolve. Seborrheic keratosis 394 538990 L82.1 Benign over growths of skin. Reassuranc [...] treatment. Do not scrub lesions after treatment. [id number] STEPAN KENNEDY MD [facility] [address] [place] [address] 08/10/2024 13:47:30 08/10/2024 15:11:02 Actinic keratosis L57.0 The nature of the diagnosis was discussed. Discussed LN2 vs 5FU. Pt elected to tx via 5FU.Recomm end rx 5FU topical cream apply to the back of the hands and face BID x 14 days. SE reviewed. GoodRx card given.Fup with change or concerns [id number] ASHLEY LARSEN MD [facility] [address] [place] [address] 12/02/2024 12:26:34 12/02/2024 13:26:21 History of malignant neoplasm of skin 430015113 Z85.828 Scar is clear. Well healed scar. No evidence of recurrence . Actinic keratosis 915253 007 L57.0 Precancero us lesion(s). Will LN2 today.Can leave a white discolorat ion in the areas when LN2 is performed. Follow-up if lesion(s) persists or do not resolve.Fo llow up in 6 months for recheck. Lentiginosis 267526970 L 81.4 Continue to monitor for changes in size, shape and color.Retu rn to care if lesion becomes bothersome or if changes occur. Multiple b enign melanocytic nevi 273644156 D22.9 L82.1 I78.1 L81.4 Benign appearing lesions.Co [...] Name 12/08/2024 1 [place]MEDICARE REPLACEMENT HMO) [id number] Lesly Rodas [id number] Lesly Rodas Notes Date Note Type Note Provider Name and Address Organization Details Recorded Time 08/13/2023 text/html OPS- I have a place on my finger. L 4th fingerI want her to look at my face. STEPAN KENNEDY MD [facility] [place], [address], [facility] 08/14/2023 07:11:54 12/10/2023 text/html I am here for my skin check. History of SCCL shoulder ASHLEY LARSEN MD [address] [place], [address], [facility] 12/12/2023 06:46:00 06/10/2024 text/html I am here for my skin check. History of SCCL shoulder pt reports spot of concern on L ring finger, requesting LN2 ASHLEY LARSEN MD [address] [place] [address], [phone], [facility] 06/10/2024 13:40:23 08/10/2024 text/html Spot under R eye , it has become sore in the last few months. I forgot to show it to Dr. Larsen at my annual. STEPAN KENNEDY MD [address] [place] [address], [phone], [facility] 08/10/2024 14:51:40 12/02/2024 text/html I am here for my skin check. History of SCCL shoulder PT has a spot in the center of her bottom lip. ASHLEY LARSEN MD [address] [place] [address], [phone], [facility] 12/05/2024 16:31:51 OBGyn Episode No OBEpisode recorded.
--- OUTSIDE RECORDS SUMMARY | 2025-01-05 14:12 | XMS_ITS | Clinical Summary ---
Author Organization [facility] Address [address] [place] [address] Care Team Providers Care Motorcycle Engine Assembler Name Role Phone Florentin Cochran MD Primary Care Provider [phone] Allergies Active Allergy Reactions Criticality Noted Date Comments Fluconazole Hives Medium 06/11/2022 Medications FLUoxetine (PROzac) 20 MG capsule Take 1 capsule (20 mg) by mouth 1 (one) time each day. 2 Active clonazePAM (KlonoPIN) 0.5 MG tablet Take 1 tablet (0.5 mg) by mouth every night. 2 Active mesalamine (Lialda) 1.2 g EC tablet Take 1.2 g by mouth 2 (two) times a day. as directed 1 Active atorvastatin (Lipitor) 40 MG tablet Take 1 tablet (40 mg) by mouth every night. 2 Active omega-3 (Fish Oil) 1000 MG capsule TAKE CAPSULE Daily 0 Active bisoprolol (Zebeta) 5 MG tablet Take 1 tablet (5 mg) by mouth 1 (one) time each day. 2 Active biotin 5 MG capsule TAKE CAPSULE Daily 0 Active calcium carbonate (Os-Doug) 1250 (500 Ca) MG chewable tablet 0 Active psyllium (Metamucil) 58.6 % powder Take 1 packet by mouth 3 (three) times a day. Active sertraline (Zoloft) 100 MG tablet Take 1 tablet (100 mg) by mouth 1 (one) time each day. 4 Active sulfaSALAzine (Azulfidine) 500 MG tablet Take 2 tablets (1,000 mg) by mouth 2 (two) times a day. Active amitriptyline (Elavil) 25 MG tabletIndication s:Intractable chronic migraine with aura and without status migrainosus Take 1 tablet (25 mg) by mouth at night if needed for sleep. 15 tablet 11 4 Active Active Problems Problem Noted Date Diagnosed Date Intractable acute post-traumatic headache 2021 Immunizations Immunization Administration Dates Next Due Influenza, seasonal, injectable 04/27/2013 Family History Medical History Relation Name Comments Hypertension Other 1 Other cancer Other 2 Relation Name Status Comments Other 1 Other 2 Social History Tobacco Use Types Packs/Day Years Used Date Smoking Tobacco: Never Passive Smoke Exposure: Never Smokeless Tobacco: Never Tobacco Cessation:Counseling Given: Not Answered Alcohol Use Standard Drinks/Week Comments Never 0 (1 standard drink = 0.6 oz pur e alcohol) Comments Unknown Sex and Gender Information Value Date Recorded Sex Assigned at Not on file Legal Sex Female 8:34 PM EDT Gender Identity Not on file Sexual Orientation Not on file Last Filed Vital Signs Vital Sign Reading Time Taken Comments Blood Pressure 114/72 11/20/2023 10:40 AM EDT Pulse 65 11/20/2023 10:40 AM EDT Temperature 36.4 C (97.6 F) 05/12/2018 7:45 AM EDT Respiratory Rate 15 11/20/2023 10:40 AM EDT Oxygen Saturation 96% 11/20/2023 10:40 AM EDT Inhaled Oxygen Concentration - - Weight 69.7 kg (153 lb 9.6 oz) 11/20/2023 10:40 AM EDT Height 167.6 cm (5' 6 ) 11/20/2023 10:40 AM EDT Body Mass Index 24.79 11/20/2023 10:40 AM EDT Plan of Treatment Health Maintenance Due Date Last Done Comments Dental Oral Exam 1956 Dental X-Ray: Bitewings 1956 Dental X-Ray: Full Mouth 1956 [facility]-Bone Density Scan 1956 [facility]-Depression Screening 1956 [facility]-Hepatitis C Screening 1955 [facility]Medicare Annual Wellness (AWV) 1956 [facility]-Infant/Child/Adol SDOH Screenings 1956 [facility]- SDOH Screenings 1974 [facility]-Adult SDOH Screenings 1974 [facility]-DTaP,Tdap,and Td Vaccines (1 - Tdap) 10/04/1996 10/03/1996 CT Colonography 2001 Colonoscopy 2001 FIT-DNA 2001 FIT 2001 FOBT 2001 Sigmoidoscopy 2001 [facility]-Colorectal Cancer Screening 2001 [facility]-Breast Cancer Screening 2006 [facility]-Pneumococcal Vaccine: 50+ Years (1 of 1 - PCV) 2006 Dental Prophylaxis 09/19/2019 03/18/2019 [id number] Vaccine ( - season) 2024 07/30/2021, 10/07/2020, 09/17/2020 [facility]-Influenza Vaccine (Season Ended) 2025 04/17/2021, 04/24/2020, 06/02/2018, Additional history exists [facility]-RSV Vaccine: 60+ Years or (1 - 1-dose 75+ series) 2031 [facility]-Zoster Vaccines Completed 09/08/2018, 8 [facility]-Hepatitis A Vaccines Aged Out 019, 07/02/2018, 06/02/2018 No longer eligible based on patient's age to complete this topic HPV Vaccines Aged Out No longer eligi ble based on patient's age to complete this topic [facility]-HIB Vaccines Aged Out No longer e ligible based on patient's age to complete this topic [facility]-IPV Vaccines Aged Out No longer e ligible based on patient's age to complete this topic [facility]-Rotavirus Vaccines Aged Out No lo nger eligible based on patient's age to complete this topic Procedures Procedure Name Priority Date/Time Associated Diagnosis Comments PROPHYLAXIS - ADULT Routine 03/18/2019 12:00 AM EDT from Last 3 Months or Most Recently Relevant to Health Maintenance Insurance ANTHEM MEDICARE Care Teams Motorcycle Engine Assembler Relationship Specialty Start Date End Date Florentin Cochran MD [address] [facility] [place] [address] PCP - General 12/08/20
--- NOTE | 2025-01-05 14:30 | CT_ITS ---
FINAL REPORT TECHNIQUE: Axial images were obtained through the chest without contrast. Reconstructed images were obtained and reviewed. This study was performed with techniques to keep radiation doses as low as reasonably achievable, (ALARA). Individualized dose reduction techniques using automated exposure control or adjustment of mA and/or kV according to the patient's size were employed. CLINICAL HISTORY: pulmonary nodule COMPARISON: 11/05/2023 FINDINGS: The heart size is normal. There is no pericardial or pleural effusion. Limited images of the upper abdomen are unremarkable. There is a small nodule in the medial right lower lobe measuring 4 mm well-seen on image 143 of series 3. This nodule is entirely stable as compared to prior. No new mass or nodule is identified. IMPRESSION: Stable nodule in the medial right lower lobe. Recommend continued follow-up in 12 months. Reviewed, Interpreted and Dictated by Jhoan Fisher MD Transcribed by Tiana Sunshine Authenticated and [facility]
== END 2025-01-05 23:59 | disposition home or self-care (01) ==
LOC: RAD 14:05
PROVIDERS: PCP Family Medicine; Visit Provider Family Medicine
DX: R91.1 Solitary pulmonary nodule (principal)
CPT/HCPCS: 71250

== ENCOUNTER 2025-01-18 13:52 | Outpatient (CLI) | payer MEDICARE, SELFPAY ==
--- OUTSIDE RECORDS SUMMARY | 2025-01-18 13:55 | XMS_ITS | Data Portability ---
Author Organization [facility] ADMIN Address [address] [place] [address] Assessment Encounter Date Assessment Date Assessment LastModified [...] dilation. - Schedule EGD for further evaluation. [email or web address] Not available 03/16/2024 16:53:39 05/06/2024 05/06/2024 68-year-old [...] per above. f/u 1 year and PRN. [email or web address] Not available 05/06/2024 11:28:32 Plan of Treatment [...] 20 mg capsule,d elayed release 2023 024 [facility], [address], [address], 05/06/2024 11:05:08 sulfasala zine 500 mg tablet 2023 024 [facility], [address], [address], 03/16/2024 16:53:29 folic acid 1 mg tablet 2023 024 [facility], [address], [address], 03/16/2024 16:53:27 Patient TargetsNo targets recorded. Patient InstructionsNo instructions recorded. Reason for Referral None Reported. Results Created Date Observation Date Name Description Value Unit Range Abnormal Flag Note LastModifiedBy Organization Detail LastModifiedTime 04/09/20 24 04/17/2024 PATHO LOGY SPECI MEN pathology specimen SEE ZHANNA GARCIA Not Available [facility] [address], [place], [address], 04/17/2024 21:20:51 Result Notes None recorded. Problems Name Problem SNOMED Code Status Onset Date Resolution Date Notes Provider Name and Address Organization Details Recorded Time Ulcerative colitis 89349943 Active 2023 Blake Dunham PA-C [address], [place], [address] , [facility] [place] 4 16:47:57 Dysphagia 46799209 Active 2023 Blake Dunham PA-C [address], [place], [address] , [facility] [place] 4 16:52:30 Montes's esophagus 270629211 Active 2023 Blake Dunham PA-C [address], [place], [address] , [facility] [place] 4 11:04:13 Problem Notes None recorded. Medical [...] Address Organization Details Last Updated DateTime 4 518[address].9 1 g 25.4 kg/m2 165.1 cm 98.2 [degF] 98 % 98 % 93 /min 85 /min 128 mm[Hg] 85 mm[Hg] Vicente Robbins [facility] [place] 13:32:37 Social History Question Answer Notes LastModified by [employer] Details LastModified Time Tobacco Smoking Status Never Smoker Vicente Robbins [facility] [place] 03/16/2024 13:33:57 What Is Your Level Of Caffeine Consumption? Occasional [email or web address] Information not available 03/16/2024 Sex: Unknown Functional Status Question Answer Note LastModified by [employer] Details LastModified Time Do you use any illicit or recreational drugs? No [email or web address] Information not available 03/16/2024 What is your level of alcohol consumption? None [email or web address] Information not available 03/16/2024 Mental Status None recorded. Family History Nothing Reported. Medical History No medical history recorded. Gynecological HistoryNo gynecological history recorded. Obstetrics History GPAL:G 0 P 0 0 0 0 Past Encounters Encounter ID Performer Location Encounter Start Date Encounter Closed Date Diagnosis/Indication Diagnosis SNOMED-CT Code Diagnosis ICD10 Code Diagnosis Note [id number] Blake Dunham PA-C [facility] [address] [address] 03/16/2024 13:04:19 03/16/2024 14:05:10 Ulcerative colitis 46841358 K51.90 Dysphagia 44226226 R13.1 0 [id number] Blake Dunham PA-C [facility] [address] [address] 05/06/2024 10:57:36 05/06/2024 11:06:13 Ulcerative colitis 91239470 K51.90 Dysphagia 98132596 R13.1 0 Montes's esophagus 3029 [address] K22.70 Health Concerns Section Related Observation LastModified [...] PLUS (MEDICARE REPLACEMENT HMO) [id number] Lesly Rodas [id number] Notes Date Note Type Note Provider [...] heartburn or chest pain. Blake Dunham PA-C [address], [place], [address], [facility] [place] 03/16/2024 16:54:06 05/06/2024 text/html PREVIOUS (): Ms. [...] capability for televideo conferencing. Blake Dunham PA-C [address], [place], [address], [facility] [place] 05/06/2024 11:28:43 OBGyn Episode No OBEpisode recorded.
--- OUTSIDE RECORDS SUMMARY | 2025-01-18 13:55 | XMS_ITS | Encounter Summary ---
Author Organization Healthcare Address [address] [place] [address] Care Team Providers Care Executive Team Leader Name Role Phone Florentin Cochran MD Primary Care Provider [phone] Encounter Details Date Type Department Care Team (Late st Contact Info) Description 03/18/2019 Abstract DSB [facility] [address] [place] [address] Dental, Provider, DDS [address] [place] [address] Social History Tobacco Use Types Packs/Day Years [...] on filedocumented in this encounter Care Teams Executive Team Leader Relationship Specialty Start Date End Date Florentin Cochran MD [address] [place] [address] PCP - General 12/08/20 documented as of this encounter
--- OUTSIDE RECORDS SUMMARY | 2025-01-18 13:55 | XMS_ITS | Data Portability ---
Author Organization [facility], [facility] CLOSED Address [address] [place] [address] Care Team Providers Care Business And Services Instructor Name Role Phone ASHLEY LARSEN Customs Appraiser Assessment No assessment recorded. Plan of Treatment Reminders Order Date Submit Date Provider Last Modified By Organization Details Last Modified Time Details Appointments FOLLOW UP [facility] 2024 01:10P M ASHLEY LARSEN MD Not available Not available Not available FOLLOW UP [facility] 2025 01:00P M ASHLEY LARSEN MD Not available Not available Not available Lab None recorded. Referral None recorded. Procedures None recorded. Surgeries None recorded. Imaging None recorded. Medication Orders fluoroura cil 5 % topical cream 2024 025 [id number], [address] [place], [address], 08/10/2024 14:13:34 Patient TargetsNo targets recorded. Patient InstructionsNo instructions recorded. Reason for Referral None Reported. Problems Name Problem SNOMED Code Status Onset Date Resolution Date Notes Provider Name and Address Organization Details Recorded Time Intestina l obstructi on due to ulcerativ e colitis 34234403172 44873 Active 2015 From Automated Load;Prov ider: Abena Nayak; atus: Active Not Available [facility] 7 07:09:53 Digital mucous cyst 678836535 Active 2023 Arlin Garcia [facility] 4 13:15:46 Digital mucous cyst 808740749 Active 2023 Arlin Garcia [facility] 4 13:17:06 Actinic keratosis 204838058 [facility] 4 13:18:55 Inflamed seborrhei c keratosis 766230417 Active 2023 [facility] 4 13:19:28 Abdominal pain 02309438 Active 2015 From Automated Load;Prov ider: Abena Nayak;St atus: Active Not Available [facility] 6 00:50:36 Ulcerativ e colitis 39809962 Active 2015 From Automated Load;Prov ider: Abena Nayak;St atus: Active Not Available [facility] 6 00:50:36 Problem Notes None recorded. Procedures Surgical History Date Name Laterality Status Provider Name and Address Organization Details Recorded Time 12/03/19 25 DAK - Cryo AK completed Miranda Pimentel [facility] 12/02/2024 13:17:30 06/10/20 24 DAK - Cryo AK completed Josetacos Tobar [facility] 06/10/2024 13:27:30 06/10/20 24 DAK - Cosmetic Clean Up completed Jose Tobar [facility] 06/10/2024 13:32:21 12/10/19 24 DAK - Cryo AK [facility]10[facility]2023 10:02:43 08/13/19 24 Destruction Premalignant Lesion(s) completed [facility] 08/13/2023 13:19:21 08/13/19 24 Destruction BN Lesions completed [facility] 08/13/2023 13:18:52 Imaging Results None recorded. Procedure [...] Tobacco Smoking Status Never Smoker Donna woody, CRYSTAL [facility] 05/14/2022 14:17:36 What Was The Date [...] 2021 14:17:22 Father Malignant tumor of colon [email or web address] Not available 12/09 09:49:47 Paternal Grandfather Malignant tumor of colon [id number] Not available 12/09 09:49:47 Paternal Uncle Malignant tumor of colon [id number] Not available 12/09 09:49:47 Medical History Condition Response Anxiety Disorder Y Arthritis Y Skin Cancer Other Skin Condition Gynecological HistoryNo gynecological history recorded. Obstetrics History GPAL:G 0 P 0 0 0 0 Past Encounters Encounter ID Performer Location Encounter Start Date Encounter Closed Date Diagnosis/Indication Diagnosis SNOMED-CT Code Diagnosis ICD10 Code Diagnosis Note [id number] MD CRYSTAL [facility] [address] [place] [address] 05/14/2022 13:58:18 05/22/2022 16:15:18 Lipoma of head 1293690577 40782 D17.0 - forehead Nasal congestion 0534499 0 R09.81 Bleeding from nose 54122 6005 R04.0 Vasomotor rhinitis 66151 03 J30.0 [id number] STEPAN KENNEDY MD [facility] [address] [place] [address] 08/13/2023 12:47:27 08/14/2023 16:12:46 Digital mucous cyst 798771596 M71.349 dx was discussed. can see Dr. Elena Jean Baptiste MD for this. patient has seen her in the past for this. Actinic keratosis L57.[address]. no wound careRTC if this does not resolve Inflamed s eborrheic keratosis 704577967 L82.0 benign appearing. patient would like LN2.no wound care. [id number] ASHLEY LARSEN MD [facility] [address],[place] [address] 12/10/2023 09:22:45 12/10/2023 10:08:44 Multiple benign melanocytic nevi 286770808 D22.5 I78.1 L81.4 L82.1 Benign appearing lesions.Co ntinue to monitor and follow-up with any or changing lesions.Re commend to wear SPF 30+ with zinc or titanium oxide cream daily. Prefers lotions/cr eams over sprays.Fol low up in 6 months for a full skin exam. History of malignant neoplasm of skin 496820083 Z85.828 Scar is clear. Well healed scar. No evidence of recurrence . Actinic keratosis L57.0 Precancero us lesion(s). Will LN2 today.Can leave a white discolorat ion in the areas when LN2 is performed. Follow-up if lesion(s) persists or do not resolve. Female pat tern alopecia 6477702 L64.8 The nature of the diagnosis was [...] consistent ly. If stopped can lose progress. [id number] ASHLEY LARSEN MD [facility] [address] [place] [address] 06/10/2024 12:57:32 06/10/2024 13:45:56 Multiple benign melanocytic nevi 347712493 D22.5 I78.1 L81.4 L82.1 Benign appearing lesions.Co ntinue to monitor and follow-up with any or changing lesions.Re commend to wear SPF 30+ with zinc or titanium oxide cream daily. Prefers lotions/cr eams over sprays.Fol low up in 6 months for a full skin exam. History of malignant neoplasm of skin 366886508 Z85.828 Scar is clear. Well healed scar. No evidence of recurrence . Digital mu cous cyst of left hand 4842357511 140423 M67.442 Recurrent digital mucous cyst after excision.O ffered to referral for re-excisio n. She reports she will call Dr. Elena Jean Baptiste MD office for f/u. Actinic keratosis 007 L57.0 Precancero us lesion(s). Will LN2 today.Can leave a white discolorat ion in the areas when LN2 is performed. Follow-up if lesion(s) persists or do not resolve. Seborrheic keratosis 394 965752 L82.1 Benign over growths of skin. Reassuranc [...] treatment. Do not scrub lesions after treatment. [id number] STEPAN KENNEDY MD [facility] [address] [place] [address] 08/10/2024 13:47:30 08/10/2024 15:11:02 Actinic keratosis L57.0 The nature of the diagnosis was discussed. Discussed LN2 vs 5FU. Pt elected to tx via 5FU.Recomm end rx 5FU topical cream apply to the back of the hands and face BID x 14 days. SE reviewed. GoodRx card given.Fup with change or concerns [id number] OCTOBER W MD DARLYN D[facility] [address] [place] [address] 12/02/2024 12:26:34 12/02/2024 13:26:21 History of malignant neoplasm of skin 445682968 Z85.828 Scar is clear. Well healed scar. No evidence of recurrence . Actinic keratosis 014816 007 L57.0 Precancero us lesion(s). Will LN2 today.Can leave a white discolorat ion in the areas when LN2 is performed. Follow-up if lesion(s) persists or do not resolve.Fo llow up in 6 months for recheck. Lentiginosis 961618492 L 81.4 Continue to monitor for changes in size, shape and color.Retu rn to care if lesion becomes bothersome or if changes occur. Multiple b enign melanocytic nevi 577796909 D22.9 L82.1 I78.1 L81.4 Benign appearing lesions.Co [...] Name 12/08/2024 1 [place]MEDICARE REPLACEMENT HMO) [id number] Lesly Rodas [id number] Lesly Rodas Notes Date Note Type Note Provider Name and Address Organization Details Recorded Time 08/13/2023 text/html OPS- I have a place on my finger. L 4th fingerI want her to look at my face. STEPAN KENNEDY [facility] [address] [facility] [place], [address], [place] [facility] 08/14/2023 07:11:54 12/10/2023 text/html I am here for my skin check. [place] [address] [place] [address], [phone], [facility] 12/12/2023 06:46:00 06/10/2024 text/html I am here for my skin check. History of SCCL shoulder pt reports spot of concern on L ring finger, requesting LN2 ASHLEY LARSEN MD [address] [place] [address], [phone], [facility] 06/10/2024 13:40:23 08/10/2024 text/html Spot under R eye , it has become sore in the last few months. I forgot to show it to Dr. Larsen at my annual. STEPAN KENNEDY MD [address] [place] [address], [phone], [facility] 08/10/2024 14:51:40 12/02/2024 text/html I am here for my skin check. History of SCCL shoulder PT has a spot in the center of [place] [address] [place] [address], [phone], [facility] 12/05/2024 16:31:51 OBGyn Episode No OBEpisode recorded.
--- OUTSIDE RECORDS SUMMARY | 2025-01-18 13:55 | XMS_ITS | Continuity of Care Document ---
Author Organization [facility] KRISTEN Sanchez WHITEFACE Address [address] [place] [address] Care Team Providers Care Network Management Specialist Name Role Phone ASHLEY SANTIZO Credit Coordinator Assessment No assessment recorded. Plan of Treatment Reminders Order Date Submit Date Provider Last Modified By Organization Details Last Modified Time Details Appointments FOLLOW UP [facility] 2024 01:10P M ASHLEY SANTZIO MD Not available Not available Not available FOLLOW UP [facility] 2025 01:00P M ASHLEY SANTIZO MD Not [...] obstructi on due to ulcerativ e colitis 53196686347 97268 Active 2015 From Automated Load;Prov ider: Kim Nayak atus: Active Not Available [facility] 7 07:09:53 Digital mucous cyst 354015915 Active 2023 Arlin Garcia [facility] 4 13:15:46 Digital mucous cyst 636373545 Active 2023 Arlin Garcia [facility] 4 13:17:06 Actinic keratosis 085805740 Active 2023 Arlin Garcia [facility] 4 13:18:55 Inflamed seborrhei c keratosis 354026911 Active 2023 Arlin Johnsonsaeid woody [facility] 13:19:28 Abdominal pain 91973517 Active 2015 From Automated Load;Prov ider: Abena Nayak;St atus: Active Not Available Replaced by [facility] 6 00:50:36 Ulcerativ e colitis 93558138 Active 2015 From Automated Load;Prov ider: Abena Nayak;St atus: Active Not Available Replaced by [facility] 6 00:50:36 Problem Notes None recorded. Procedures Surgical History Date Name Laterality Status Provider Name and Address Organization Details Recorded Time 12/03/19 25 DAK - Cryo AK completed Miranda Pimentel [facility] 12/02/2024 13:17:30 06/10/20 24 DAK - Cryo AK completed Josetacos Tobar [facility] 06/10/2024 13:27:30 06/10/20 24 DAK - Cosmetic Clean Up completed Josetacos Tobar [facility] 06/10/2024 13:32:21 12/10/19 24 DAK - Cryo AK completed Jose [facility] 12/10/2023 10:02:43 08/13/19 24 Destruction Premalignant Lesion(s) [...] Tobacco Smoking Status Never Smoker CRYSTAL Mendes [facility] 05/14/2022 14:17:36 What Was The Date Of [...] 2021 14:17:22 Father Malignant tumor of colon [email or web address] Not available 12/09 09:49:47 Paternal Grandfather Malignant tumor of colon [email or web address] Not available 12/09 09:49:47 Paternal Uncle Malignant tumor of colon [email or web address] Not available 12/09 09:49:47 Medical History Condition Response Anxiety Disorder Y Skin Cancer Arthritis Y Other Skin Condition Gynecological HistoryNo gynecological history recorded. Obstetrics History GPAL:G 0 P 0 0 0 0 Past Encounters Encounter ID Performer Location Encounter Start Date Encounter Closed Date Diagnosis/Indication Diagnosis SNOMED-CT Code Diagnosis ICD10 Code Diagnosis Note [id number] October MD DARLYN [address] [address] 12/02/2024 12:26:34 12/02/2024 13:26:21 History of malignant neoplasm of skin 416856138 Z85.828 Scar is clear. Well healed scar. No evidence of recurrence . Actinic keratosis 007 L57.0 Precancero us lesion(s). Will LN2 today.Can leave a white discolorat ion in the areas when LN2 is performed. Follow-up if lesion(s) persists or do not resolve.Fo llow up in 6 months for recheck. Lentiginosis 309763275 L 81.4 Continue to monitor for changes in size, shape and color.Retu rn to care if lesion becomes bothersome or if changes occur. Multiple b enign melanocytic nevi 602819550 D22.9 L82.1 I78.1 L81.4 Benign appearing lesions.Co [...] Melendrez Member ID Guarantor Name 12/02/2024 1 [place]MEDICARE REPLACEMENT HMO) [id number] Lesly Rodas [id number] Lesly Rodas Notes Date Note Type Note Provider Name and Address Organization Details Recorded Time 12/02/2024 text/html I am here for my skin check. History of SCCL shoulder PT has a spot in the center of her bottom lip. ASHLEY SANTIZO MD [facility] [place], [address], [facility] 12/05/2024 16:31:51 OBGyn Episode No OBEpisode recorded.
--- OUTSIDE RECORDS SUMMARY | 2025-01-18 13:55 | XMS_ITS | Clinical Summary ---
Author Organization [facility] Address [address] [place] [address] Phone Care Team Providers Care Medical Case Worker Name Role Phone Gunnar BELL, Fiordaliza Cam [ ] Conditions or Problems Problem Name Problem Code Onset Date Status Entry Date Provider Comment Standard Description Annotate Myalgia 44078682 (SNOMED CT) 09/11 Active 09/11 Fiordaliza Maher MD Muscle pain Arthralgias 43101911 (SNOMED CT) 09/11 Active 09/11 Fiordaliza Maher MD Pain of joint Elevated liver enzymes 434682852 (SNOMED CT) 09/03 Active 09/20 Fiordaliza Maher MD Liver enzymes outside reference range Candidiasis of skin 512796839 (SNOMED CT) 09/01 Active 09/01 Carla Rafat Candidiasis of skin and nails 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 711631284 (SNOMED CT) 08/26 Active 08/30 Carla Rafat Childhood granulomatous periorificial dermatitis Pulmonary infiltrate- fibronodular 01035134 (SNOMED CT) 08/26 Resolved 08/26 Fiordaliza Maher MD Disorder of lung Pulmonary infiltrates- reticulonodu lar, acute vs chronic 388236576 (SNOMED CT) 08/26 Active 08/30 Fiordaliza Maher MD Asthmatic pulmonary eosinophilia 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 522209849 (SNOMED CT) 08/26 Inactive 08/30 Fiordaliza Maher MD Granulomatous disorder Pulmonary infiltrate- fibronodular 65621549 (SNOMED CT) 08/26 Removed 08/26 Fiordaliza Maher MD Disorder of lung Alopecia 60216896 (SNOMED CT) 08/17 Active 08/17 Fiordaliza Maher MD Alopecia Pruritus 152257577 (SNOMED CT) 08/17 Active 08/17 Fiordaliza Maher MD Pruritic disorder Chest pain, intermittent 98410932 (SNOMED CT) 08/17 Active 08/17 Fiordaliza Maher MD Chest pain Ulcerative colitis 18861981 (SNOMED CT) 08/17 Active 08/17 Fiordaliza Maher MD Ulcerative colitis 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 546045810 (SNOMED CT) 08/17 Active 08/17 Fiordaliza Maher MD Drug therapy finding Histoplasma capsulatum, without mention of manifestatio n 48964749 (SNOMED CT) 08/17 Active 08/17 Fiordaliza Maher MD 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 09/03 METHYLPREDNISOLONE 40259182317 Fiordaliza Maher MD FLUCONAZOLE 200 MG TABS 2 daily for 10 days 08/17 FLUCONAZOLE 53230083322 Fiordaliza Maher MD REMICADE 100 MG SOLR every 8 weeks 08/17 INFLIXIMAB 23880409366 Fiordaliza Maher MD METHYLPREDNISOLONE 4 MG TABS For 3 additional days. 09/03 METHYLPREDNISOLONE 97256751518 Fiordaliza Maher MD METHYLPREDNISOLONE 4 MG TABS For 3 additional days. 09/03 METHYLPREDNISOLONE 96092791084 Domonique Shields FLUCONAZOLE 200 MG TABS 2 daily for 10 days 08/17 FLUCONAZOLE 16506909375 Fiordaliza Maher MD TYLENOL 325 MG CAPS Take/use as needed. 08/17 ACETAMINOPHEN 07324839001 Megan Morguelan EQL FISH OIL 1000 MG CAPS by mouth twice daily 08/17 OMEGA-3 FATTY ACIDS 88386378746 Meganjuan miguel Robertselan AMOXICILLIN 500 MG TABS by mouth every 6 hrs 08/17 AMOXICILLIN 83268299674 Meganjuan miguel Robertselan LIALDA 1.2 GM TBEC 2 tabs by mouth twice daily 08/17 MESALAMINE 63523162639 Megan Morguelan REMICADE 100 MG SOLR every 8 weeks 08/17 INFLIXIMAB 57853072271 Megan Morguelan Medications Administered No information available. Allergies, Adverse Reactions, Alerts Allergy Name Reaction Description Start Date Severity Statu s Provider ANTI-REJECTION DRUG, PRESCRIBED BY DR. MARTE severe pancreatitis Critical Active Gabrimraek Eastguelan Results Date Name Value Unit Range [...] Procedures Code Procedure Name Date Entry Date CPT-19149 CMP CPT-cbcwmd CBC W/Manual Diff. 5 CPT-74522 C- reactive protein CPT-76324 Sedimentation Rate (ESR) 201 01/26/15 U575351, [id number] CPK CPT-63403 CMP P8051s,V613225 CBC with Differential 2016 CPT-97463 C- reactive protein CPT-71739 Sedimentation Rate (ESR) 201 01/26/16 CPT-16533 CT Chest without contrast 13/08/15 CPT-81599 CMP CPT-81788 CT Chest w/o contrast 08/26 [address]6225 Hepatitis C Atb: (ICD 10 Code: Z11.59) 20 12/06/29 CPT-cbcwmd CBC W/Manual Diff. 1 CPT-35977 CMP CPT-32343 C- reactive protein CPT-02591 Sedimentation Rate (ESR) 201 01/05/21 CPT-21680 Cryptococcus Antigen Serum 2 CPT-LAB Other CPT-sl STAT Labs CPT: fungblcx Fungal Blood cultures in mariana isolator tubes CPT-75363 Histoplasmosis Urinary AG 20 12/06/21 CPT-99943 Blastomyces Urinary Antigen CPT-88150 X-Ray, Chest, PA & Lateral 2 Vital [...]
--- OUTSIDE RECORDS SUMMARY | 2025-01-18 13:55 | XMS_ITS | Clinical Summary ---
Author Organization [facility] Address [address] [place] [address] Care Team Providers Care Manager Medical Writing Name Role Phone Florentin Cochran MD Primary Care Provider [phone] Allergies Active Allergy Reactions Criticality Noted Date [...] [facility]-Depression Screening 1956 [facility]-Hepatitis C Screening 1956 [facility]-Medicare Annual Wellness (AWV) 1956 [facility]-/Child/Adol SDOH Screenings 1956 [facility]- SDOH Screenings 1974 [facility]-Adult SDOH Screenings 1974 [facility]-DTaP,Tdap,and Td Vaccines (1 - Tdap) 10/04/1996 10/03/1996 CT Colonography 2001 Colonoscopy 2001 FIT-DNA 2001 FIT 2001 FOBT 2001 Sigmoidoscopy 2001 [facility]-Colorectal Cancer Screening 2001 [facility]-Breast Cancer Screening 2006 [facility]-Pneumococcal Vaccine: 50+ Years (1 of 1 - PCV) 2006 Dental Prophylaxis 09/19/2019 03/18/2019 [id number] Vaccine ( - season) 2024 07/30/2021, 10/07/2020, [...] Health Maintenance Insurance [employer] MEDICARE Care Teams Manager Medical Writing Relationship Specialty Start Date End Date Florentin Cochran MD [address] [facility] [place] [address] PCP - General 12/08/20
--- NOTE | 2025-01-18 14:00 | MM_ITS ---
PROCEDURE INFORMATION: Exam: MG Bilateral Screening 3D Mammography Exam date and time: 01/18/2025 1:55 PM Age: 69 years old Clinical indication: Screening examination TECHNIQUE: Imaging protocol: Bilateral Screening tomosynthesis and 2D mammography including computer-aided detection (CAD) when performed. COMPARISON: 1. MG MM DIG SCREENING MAMM BI W/CAD 01/07/2024 10:15 AM 2. MG MM DIG SCREENING MAMM BI W/CAD 11/22/2022 8:16 AM FINDINGS: MAMMOGRAPHY: Breast composition: The breasts are heterogeneously dense, which may obscure small masses. Mass: No suspicious masses. Architectural distortion: None. Calcifications: No suspicious calcifications. Asymmetric density: None. Skin thickening: None. Axillary adenopathy: None. IMPRESSION: No mammographic evidence of malignancy. Annual screening is recommended unless otherwise clinically indicated. ASSESSMENT: BI-RADS Category 1: Negative.
== END 2025-01-18 23:59 | disposition home or self-care (01) ==
LOC: RAD 13:52
PROVIDERS: PCP Family Medicine; Visit Provider Family Medicine
DX: Z12.31 Encounter for screening mammogram for malignant neoplasm of breast (principal); R92.333 Mammographic heterogeneous density, bilateral breasts
CPT/HCPCS: 77063; 77067

== ENCOUNTER 2025-01-25 09:20 | Outpatient (CLI) | payer MEDICARE, SELFPAY ==
--- OUTSIDE RECORDS SUMMARY | 2025-01-25 09:24 | XMS_ITS | Encounter Summary ---
Author Organization [facility] Address [address] [place] [address] Care Team Providers Care Medical Representative Name Role Phone Florentin Cochran MD Primary Care Provider [phone] Encounter Details Date Type Department Care Team (Late st Contact Info) Description 03/18/2019 Abstract DSB [facility] [address] [place] [address] Dental, Provider, DDS [address] [place] [address] Social History Tobacco Use Types Packs/Day Years [...] on filedocumented in this encounter Care Teams Medical Representative Relationship Specialty Start Date End Date Florentin Cochran MD [address] [place] [address] PCP - General 12/08/20 documented as of this encounter
--- OUTSIDE RECORDS SUMMARY | 2025-01-25 09:24 | XMS_ITS | Clinical Summary ---
Author Organization [facility] Address [address] [place] [address] Care Team Providers Care Parachute Repairer Name Role Phone Florentin Cochran MD Primary Care Provider [phone] Allergies Active Allergy Reactions Criticality Noted Date [...] Health Maintenance Due Date Last Done Comments [facility]-Bone Density Scan 1956 [facility]-Depression Screening 1956 [facility]-Hepatitis C Screening 1956 [facility]-Medicare Annual Wellness (AWV) 1956 [facility]-Infant/Child/Adol SDOH Screenings 1956 [facility]- SDOH Screenings 1974 [facility]-Adult SDOH Screenings 1974 [facility]-DTaP,Tdap,and Td Vaccines (1 - Tdap) 10/04/1996 10/03/1996 CT Colonography 2001 Colonoscopy 2001 FIT-DNA 2001 FIT 2001 FOBT 2001 Sigmoidoscopy 2001 [facility]-Colorectal Cancer Screening 2001 [facility]-Breast Cancer Screening 2006 [facility]-Pneumococcal Vaccine: 50+ Years (1 of 1 - PCV) 2006 [id number] Vaccine ( - season) 2024 07/30/2021, 10/07/2020, [...] on patient's age to complete this topic Insurance SERENA MEDICARE Care Teams Parachute Repairer Relationship Specialty Start Date End Date Florentin Cochran MD [address] [place], [place] [id number] PCP - General 12/08/20
--- OUTSIDE RECORDS SUMMARY | 2025-01-25 09:24 | XMS_ITS | Clinical Summary ---
Author Organization [facility] Address [address] [facility] [address] [place] [address] Phone Care Team Providers Care Charge Rn Name Role Phone Gunnar BELL, Fiordaliza Cam [ ] Conditions or Problems Problem Name Problem Code Onset Date Status Entry Date Provider Comment Standard Description Annotate Myalgia 39701503 (SNOMED CT) 09/11 Active 09/11 Fiordaliza Maher MD Muscle pain Arthralgias 88904725 (SNOMED CT) 09/11 Active 09/11 Fiordaliza Maher MD Pain of joint Elevated liver enzymes 082389945 (SNOMED CT) 09/03 Active 09/20 Fiordaliza Maher MD Liver enzymes outside reference range Candidiasis of skin 000622526 (SNOMED CT) 09/01 Active 09/01 Carla Rafat Candidiasis of skin and nails 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 926470812 (SNOMED CT) 08/26 Active 08/30 Carla Rafat Childhood granulomatous periorificial dermatitis Pulmonary infiltrate- fibronodular 32012170 (SNOMED CT) 08/26 Resolved 08/26 Fiordaliza Maher MD Disorder of lung Pulmonary infiltrates- reticulonodu lar, acute vs chronic 889163245 (SNOMED CT) 08/26 Active 08/30 Fiordaliza Maher MD Asthmatic pulmonary eosinophilia 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 425336122 (SNOMED CT) 08/26 Inactive 08/30 Fiordaliza Maher MD Granulomatous disorder Pulmonary infiltrate- fibronodular 17369319 (SNOMED CT) 08/26 Removed 08/26 Fiordaliza Maher MD Disorder of lung Alopecia 82047551 (SNOMED CT) 08/17 Active 08/17 Fiordaliza Maher MD Alopecia Pruritus 920387772 (SNOMED CT) 08/17 Active 08/17 Fiordaliza Maher MD Pruritic disorder Chest pain, intermittent 94323676 (SNOMED CT) 08/17 Active 08/17 Fiordaliza Maher MD Chest pain Ulcerative colitis 65305016 (SNOMED CT) 08/17 Active 08/17 Fiordaliza Maher MD Ulcerative colitis 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 548278657 (SNOMED CT) 08/17 Active 08/17 Fiordaliza Maher MD Drug therapy finding Histoplasma capsulatum, without mention of manifestatio n 79572109 (SNOMED CT) 08/17 Active 08/17 Fiordaliza Maher MD 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 09/03 METHYLPREDNISOLONE 95836252979 Fiordaliza Maher MD FLUCONAZOLE 200 MG TABS 2 daily for 10 days 08/17 FLUCONAZOLE 77453412756 Fiordaliza Maher MD REMICADE 100 MG SOLR every 8 weeks 08/17 INFLIXIMAB 79454151449 Fiordaliza Maher MD METHYLPREDNISOLONE 4 MG TABS For 3 additional days. 09/03 METHYLPREDNISOLONE 68906696725 Fiordaliza Maher MD METHYLPREDNISOLONE 4 MG TABS For 3 additional days. 09/03 METHYLPREDNISOLONE 52283315241 Domonique Shields FLUCONAZOLE 200 MG TABS 2 daily for 10 days 08/17 FLUCONAZOLE 89826740493 Fiordaliza Maher MD TYLENOL 325 MG CAPS Take/use as needed. 08/17 ACETAMINOPHEN [id number] Megan Morguelan EQL FISH OIL 1000 MG CAPS by mouth twice daily 08/17 OMEGA-3 FATTY ACIDS 19206019710 Meganjuan miguel Robertselan AMOXICILLIN 500 MG TABS by mouth every 6 hrs 08/17 AMOXICILLIN 70430725081 Meganjuan miguel Robertselan LIALDA 1.2 GM TBEC 2 tabs by mouth twice daily 08/17 MESALAMINE 01380443796 Megan Morguelan REMICADE 100 MG SOLR every 8 weeks 08/17 INFLIXIMAB [id number] Megan Morguelan Medications Administered No information available. [...] Procedures Code Procedure Name Date Entry Date CPT-31727 CMP CPT-cbcwmd CBC W/Manual Diff. 5 CPT-29012 C- reactive protein CPT-48838 Sedimentation Rate (ESR) 201 01/26/15 [id number], [id number] CPK CPT-43972 CMP [id number] CBC with Differential 2016 CPT-83155 C- reactive protein CPT-84910 Sedimentation Rate (ESR) 201 01/26/16 CPT-51028 CT Chest without contrast 13/08/15 CPT-85582 CMP CPT-14001 CT Chest w/o contrast 08/26 17272 Hepatitis C Atb: (ICD 10 Code: Z11.59) 20 12/06/29 CPT-cbcwmd CBC W/Manual Diff. 1 CPT-62286 CMP CPT-85346 C- reactive protein CPT-73078 Sedimentation Rate (ESR) 201 01/05/21 CPT-76576 Cryptococcus Antigen Serum 2 CPT-LAB Other CPT-sl STAT Labs CPT: fungblcx Fungal Blood cultures in mariana isolator tubes CPT-60484 Histoplasmosis Urinary AG 20 12/06/21 CPT-69921 Blastomyces Urinary Antigen CPT-73763 X-Ray, Chest, PA & Lateral 2 Vital [...]
[2025-01-25 09:50] LABS: Hematocrit 36.4 % (37.0-47.0); Hemoglobin 12.4 g/dL (12.2-16.2); Immature Granulocytes % 0.2 %; Mean Corpuscular HGB Conc 34.1 g/dL (31.8-35.4); Mean Corpuscular Hemoglobin 30.3 pg (27.0-31.2); Mean Corpuscular Volume 89.0 fl (81-99); Nucleated Red Blood Cells % 0 %; Platelet Count 257 K/mm3 (142-424); Red Blood Count 4.09 M/mm3 (4.20-5.40); Red Cell Distribution Width-SD 44.8 fL; White Blood Count 6.0 K/mm3 (4.8-10.8)
[2025-01-25 10:31] LABS: Albumin Level 4.7 g/dl (3.5-5.0); Chloride 100 mmol/L (98-107); Potassium 4.3 mmoL/L (3.5-5.1)
[2025-01-25 10:33] LABS: Blood Urea Nitrogen 21 mg/dl (7-17); Creatinine,Serum 0.60 mg/dl (0.52-1.04); Estimated Glomerular Filt Rate 99 ml/min (>60); GFR (African American) 120 ML/MIN (>60)
[2025-01-25 10:34] LABS: Alanine Aminotransferase 22 U/L (12-78); Albumin/Globulin Ratio 2.1 (1.1-1.8); Alkaline Phosphatase 79 U/L (38-126); Aspartate Amino Transferase 30 U/L (14-36); Bilirubin,Total 0.4 mg/dl (0.2-1.3); Calcium 9.7 mg/dl (8.4-10.2); Carbon Dioxide 29 mmol/L (22.0-30.0); Globulin 2.2 g/dL (1.3-3.2); Glucose 91 mg/dl (74-100); Iron 80 ug/dL (37-170); Total Protein,Serum 6.9 g/dl (6.3-8.2)
[2025-01-25 10:41] LABS: C-Reactive Protein 1.7 mg/L (0-4)
[2025-01-25 10:50] LABS: Total Iron Binding Capacity 258 ug/dL (265-497)
[2025-01-25 11:10] LABS: Ferritin 64.9 ng/ml (11.1-264)
[2025-01-25 11:11] LABS: Anion Gap 10.3 mEq/L (5-15); Sodium 135 mmol/L (136-145)
== END 2025-01-25 23:59 | disposition home or self-care (01) ==
LOC: LAB 09:21
PROVIDERS: PCP Family Medicine; Visit Provider Internal Medicine Gastroenterology
DX: Z87.19 Personal history of other diseases of the digestive system (principal); K74.69 Other cirrhosis of liver; B19.20 Unspecified viral hepatitis C without hepatic coma
CPT/HCPCS: 36415; 80053; 82728; 83540; 83550; 85025; 85651; 86140

== ENCOUNTER 2025-01-25 17:31 | Outpatient (CLI) | payer MEDICARE, SELFPAY ==
--- OUTSIDE RECORDS SUMMARY | 2025-01-25 17:34 | XMS_ITS | Encounter Summary ---
Author Organization Healthcare Address [address] [place] [address] Care Team Providers Care General Utility Maintenance Repairer Name Role Phone Florentin Cochran MD Primary Care Provider [phone] Encounter Details Date Type Department Care Team (Late st Contact Info) Description 03/18/2019 Abstract DSB [facility] [address] [place] [address] Dental, Provider, DDS [address] [place] [address] Social History Tobacco Use Types Packs/Day Years [...] on filedocumented in this encounter Care Teams General Utility Maintenance Repairer Relationship Specialty Start Date End Date Florentin Cochran MD [address] [place] [address] PCP - General 12/08/20 documented as of this encounter
--- OUTSIDE RECORDS SUMMARY | 2025-01-25 17:34 | XMS_ITS | Clinical Summary ---
Author Organization [facility] Address [address] [place] [address] Care Team Providers Care Direct Casting Operator Name Role Phone Florentin Cochran MD Primary Care Provider [phone] Allergies Active Allergy Reactions Criticality Noted Date [...] Years (1 of 1 - PCV) 2006 [id number] Vaccine ( - season) 2024 07/30/2021, 10/07/2020, [...] this topic Insurance [employer] Care Teams Direct Casting Operator Relationship Specialty Start Date End Date Florentin Cochran MD [address] [place], [place] [address] PCP - General 12/08/20
--- OUTSIDE RECORDS SUMMARY | 2025-01-25 17:34 | XMS_ITS | Clinical Summary ---
Author Organization [facility] Address [address] [facility] [address] [place] [address] Phone Care Team Providers Care Professional Model Name Role Phone Gunnar BELL, Firodaliza Cam [phone] [ ] Conditions or Problems Problem Name Problem Code Onset Date Status Entry Date Provider Comment Standard Description Annotate Myalgia 14216234 (SNOMED CT) 09/11 Active 09/11 Fiordaliza Maher MD Muscle pain Arthralgias 33125355 (SNOMED CT) 09/11 Active 09/11 Fiordaliza Maher MD Pain of joint Elevated liver enzymes 428852013 (SNOMED CT) 09/03 Active 09/20 Fiordaliza Maher MD Liver enzymes outside reference range Candidiasis of skin 817341764 (SNOMED CT) 09/01 Active 09/01 Carla Rafat Candidiasis of skin and nails 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 354867393 (SNOMED CT) 08/26 Active 08/30 Carla Rafat Childhood granulomatous periorificial dermatitis Pulmonary infiltrate- fibronodular 57613245 (SNOMED CT) 08/26 Resolved 08/26 Fiordaliza Maher MD Disorder of lung Pulmonary infiltrates- reticulonodu lar, acute vs chronic 758179656 (SNOMED CT) 08/26 Active 08/30 Fiordaliza Maher MD Asthmatic pulmonary eosinophilia 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 548249111 (SNOMED CT) 08/26 Inactive 08/30 Fiordaliza Maher MD Granulomatous disorder Pulmonary infiltrate- fibronodular 67757389 (SNOMED CT) 08/26 Removed 08/26 Fiordaliza Maher MD Disorder of lung Alopecia 87966340 (SNOMED CT) 08/17 Active 08/17 Fiordaliza Maher MD Alopecia Pruritus 209930824 (SNOMED CT) 08/17 Active 08/17 Fiordaliza Maher MD Pruritic disorder Chest pain, intermittent 36458763 (SNOMED CT) 08/17 Active 08/17 Fiordaliza Maher MD Chest pain Ulcerative colitis 45408615 (SNOMED CT) 08/17 Active 08/17 Fiordaliza Maher MD Ulcerative colitis 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 835781677 (SNOMED CT) 08/17 Active 08/17 Fiordaliza Maher MD Drug therapy finding Histoplasma capsulatum, without mention of manifestatio n 52564007 (SNOMED CT) 08/17 Active 08/17 Fiordaliza Maher MD 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 09/03 METHYLPREDNISOLONE 46413191910 Fiordaliza Maher MD FLUCONAZOLE 200 MG TABS 2 daily for 10 days 08/17 FLUCONAZOLE 67857881464 Fiordaliza Maher MD REMICADE 100 MG SOLR every 8 weeks 08/17 INFLIXIMAB 64418462106 Fiordaliza Maher MD METHYLPREDNISOLONE 4 MG TABS For 3 additional days. 09/03 METHYLPREDNISOLONE 64252811496 Fiordaliza Maher MD METHYLPREDNISOLONE 4 MG TABS For 3 additional days. 09/03 METHYLPREDNISOLONE 41519666794 Domonique Shields FLUCONAZOLE 200 MG TABS 2 daily for 10 days 08/17 FLUCONAZOLE 42045016601 Fiordaliza Maher MD TYLENOL 325 MG CAPS Take/use as needed. 08/17 ACETAMINOPHEN 53273977420 Megan Morguelan EQL FISH OIL 1000 MG CAPS by mouth twice daily 08/17 OMEGA-3 FATTY ACIDS 20775242398 Meganjuan miguel Robertselan AMOXICILLIN 500 MG TABS by mouth every 6 hrs 08/17 AMOXICILLIN 67612278713 Meganjuan miguel Robertselan LIALDA 1.2 GM TBEC 2 tabs by mouth twice daily 08/17 MESALAMINE 07853996641 Megan Morguelan REMICADE 100 MG SOLR every 8 weeks 08/17 INFLIXIMAB 94625643112 Megan Morguelan Medications Administered No information available. [...] Procedures Code Procedure Name Date Entry Date CPT-51851 CMP CPT-cbcwmd CBC W/Manual Diff. 5 CPT-95223 C- reactive protein CPT-01073 Sedimentation Rate (ESR) 201 01/26/15 [id number], [id number] CPK CPT-79970 CMP [id number] CBC with Differential 2016 CPT-43555 C- reactive protein CPT-95497 Sedimentation Rate (ESR) 201 01/26/16 CPT-21832 CT Chest without contrast 13/08/15 CPT-88264 CMP CPT-67423 CT Chest w/o contrast 08/26 18437 Hepatitis C Atb: (ICD 10 Code: Z11.59) 20 12/06/29 CPT-cbcwmd CBC W/Manual Diff. 1 CPT-33772 CMP CPT-15406 C- reactive protein CPT-60047 Sedimentation Rate (ESR) 201 01/05/21 CPT-09768 Cryptococcus Antigen Serum 2 CPT-LAB Other CPT-sl STAT Labs CPT: fungblcx Fungal Blood cultures in mariana isolator tubes CPT-21292 Histoplasmosis Urinary AG 20 12/06/21 CPT-39070 Blastomyces Urinary Antigen CPT-38038 X-Ray, Chest, PA & Lateral 2 Vital [...]
[2025-01-27 01:08] LABS: Calprotectin, Fecal 1970 ug/g (0-120)
== END 2025-01-25 23:59 | disposition home or self-care (01) ==
LOC: LAB.DROPOF 17:32
PROVIDERS: PCP Internal Medicine Gastroenterology; Visit Provider Internal Medicine Gastroenterology
DX: Z87.19 Personal history of other diseases of the digestive system (principal)
CPT/HCPCS: 83993

== ENCOUNTER 2025-03-11 15:14 | Outpatient (CLI) | payer MEDICARE, SELFPAY ==
--- NOTE | 2025-03-11 15:00 | CT_ITS ---
FINAL REPORT TECHNIQUE: Noncontrast exam This study was performed with techniques to keep radiation doses as low as reasonably achievable, (ALARA). Individualized dose reduction techniques using automated exposure control or adjustment of mA and/or kV according to the patient's size were employed. CLINICAL HISTORY: fall - 3/4 days ago. patient has had a headache since the fall. COMPARISON: 11/04/2017 FINDINGS: CT HEAD: No abnormal density is seen. Ventricles are normal. There is no hemorrhage. No mass effect is seen. Bone windows show no evidence of fracture. IMPRESSION: No acute findings Reviewed, Interpreted and Dictated by Irma Machado MD Transcribed by Destiny Dunham Authenticated and [facility]
--- OUTSIDE RECORDS SUMMARY | 2025-03-11 15:16 | XMS_ITS | Encounter Summary ---
Author Organization [facility] Address [address] [place] [address] Care Team Providers Care Cut Out Operator Name Role Phone Florentin Cochran MD Primary Care Provider [phone] Encounter Details Date Type Department Care Team (Late st Contact Info) Description 03/18/2019 Abstract DSB [facility] [address] [place] [address] Dental, Provider, DDS [address] [place] [address] Social History Tobacco Use Types Packs/Day Years [...] on filedocumented in this encounter Care Teams Cut Out Operator Relationship Specialty Start Date End Date Florentin Cochran MD [address] [place] [address] PCP - General 12/08/20 documented as of this encounter
--- OUTSIDE RECORDS SUMMARY | 2025-03-11 15:16 | XMS_ITS | Clinical Summary ---
[facility] Address [address] [place] [address] Care Team Providers Care Clipper Machine Name Role Phone Maxi Walker MD Primary Care Provider Un available Social History Tobacco Use Types Packs/Day Years Used Date Smoking Tobacco: Never Assessed Abuse Screen Answer Date Recorded Unsafe at Home or Work/School Not on file Feels Threatened by Someone? Not on file 03/2023 Does Anyone Keep You from Co ntacting Others or Doint Things Outside the Home? Not on file 05/05/2023 Physical Sign of Abuse Present Not on file 1 Housing Stability Answer Date Recorded Current Living Arrangements Not on file 03/2023 Potentially Unsafe Housing Conditions Not on agustin e 05/05/2023 Family and Community Support Answer Evan e Recorded Help with Day-to-Day Activities Not on file 05/05/2023 Lonely or Isolated Not on file 05/05/2023 Employment Answer Date Recorded Do you want help finding or keeping work or a waylon b? Not on file 05/05/2023 Disabilities Answer Date Recorded Concentrating, Remembering, or Making Decisions Difficulty Not on file 05/05/2023 Doing Errands Independently Difficulty Not on fi le 05/05/2023 Education Answer Date Recorded Help with school or training? Not on file Preferred Language Not on file 05/05/2023 Comments Unknown Sex and Gender Information Value Date Recorded Sex Assigned at Not on file Legal Sex Female 12:03 PM EDT Gender Identity Not on file Sexual Orientation Not on file Plan of Treatment Health Maintenance Due Date Last Done Comments DXA SCAN 1956 MAMMOGRAM 1996 COLOGUARD 2001 COLON CANCER SCREENING 5 YEA R SIGMOIDOSCOPY 2001 COLONOSCOPY 2001 COLOR[address]AL CANCER SCREENING 2001 CT COLONOGRAPHY 2001 FECAL OCCULT BLOOD TEST 2001 FIT Testing (1 year) 2001 Pneumococcal Vaccine 50+ (1 of 1 - PCV) 2006 TDAP/TD VACCINES (2 - Tdap) 10/03/2006 10/03/1996 ANNUAL PHYSICAL 10/10/2023 HEPATITIS C SCREENING 10/10/2023 COVID-19 Vaccine (4 - 2023-2 5 season) 2024 07/30/2021, 10/07/2020, 09/17/2020 INFLUENZA VACCINE 04/27/2025 04/17/2021, , 06/02/2018, Additional history exists ZOSTER VACCINE Completed 09/08/2018, 07/07/2018 Insurance [facility] MEDICARE ADVANTAGE Care Teams Clipper Machine Relationship Specialty Start Date End Date Maxi Walker MD PCP - General Registered Dental Hygienist 06/17/16
--- OUTSIDE RECORDS SUMMARY | 2025-03-11 15:16 | XMS_ITS | Clinical Summary ---
Author Organization [facility] Address [address] [facility] [address] [place] [address] Phone Care Team Providers Care Showroom Executive Director Name Role Phone Gunnar BELL, Fiordaliza Cam [ ] Conditions or Problems Problem Name Problem Code Onset Date Status Entry Date Provider Comment Standard Description Annotate Myalgia 11714166 (SNOMED CT) 09/11 Active 09/11 Fiordaliza Maher MD Muscle pain Arthralgias 02550001 (SNOMED CT) 09/11 Active 09/11 Fiordaliza Maher MD Pain of joint Elevated liver enzymes 662109777 (SNOMED CT) 09/03 Active 09/20 Fiordaliza Maher MD Liver enzymes outside reference range Candidiasis of skin 821450850 (SNOMED CT) 09/01 Active 09/01 Carla Rafat Candidiasis of skin and nails 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 463551644 (SNOMED CT) 08/26 Active 08/30 Carla Rafat Childhood granulomatous periorificial dermatitis Pulmonary infiltrate- fibronodular 43912541 (SNOMED CT) 08/26 Resolved 08/26 Fiordaliza Maher MD Disorder of lung Pulmonary infiltrates- reticulonodu lar, acute vs chronic 690207987 (SNOMED CT) 08/26 Active 08/30 Fiordaliza Maher MD Asthmatic pulmonary eosinophilia 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 581866675 (SNOMED CT) 08/26 Inactive 08/30 Fiordaliza Maher MD Granulomatous disorder Pulmonary infiltrate- fibronodular 47345285 (SNOMED CT) 08/26 Removed 08/26 Fiordaliza Maher MD Disorder of lung Alopecia 22594215 (SNOMED CT) 08/17 Active 08/17 Fiordaliza Maher MD Alopecia Pruritus 371453882 (SNOMED CT) 08/17 Active 08/17 Fiordaliza Maher MD Pruritic disorder Chest pain, intermittent 77790210 (SNOMED CT) 08/17 Active 08/17 Fiordaliza Maher MD Chest pain Ulcerative colitis 64859026 (SNOMED CT) 08/17 Active 08/17 Fiordaliza Maher MD Ulcerative colitis assisted 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 595336374 (SNOMED CT) 08/17 Active 08/17 Fiordaliza Maher MD Drug therapy finding Histoplasma capsulatum, without mention of manifestatio n 01235749 (SNOMED CT) 08/17 Active 08/17 Fiordaliza Maher MD 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 09/03 METHYLPREDNISOLONE 77302014045 Fiordaliza Maher MD FLUCONAZOLE 200 MG TABS 2 daily for 10 days 08/17 FLUCONAZOLE 37103166833 Fiordaliza Maher MD REMICADE 100 MG SOLR every 8 weeks 08/17 INFLIXIMAB 65331624905 Fiordaliza Maher MD METHYLPREDNISOLONE 4 MG TABS For 3 additional days. 09/03 METHYLPREDNISOLONE 41456977313 Fiordaliza Maher MD METHYLPREDNISOLONE 4 MG TABS For 3 additional days. 09/03 METHYLPREDNISOLONE 17755720786 Domonique Shields FLUCONAZOLE 200 MG TABS 2 daily for 10 days 08/17 FLUCONAZOLE 19971444941 Fiordaliza Maher MD TYLENOL 325 MG CAPS Take/use as needed. 08/17 ACETAMINOPHEN 55964820062 Megan Morguelan EQL FISH OIL 1000 MG CAPS by mouth twice daily 08/17 OMEGA-3 FATTY ACIDS 00312373613 Meganjuan miguel Robertselan AMOXICILLIN 500 MG TABS by mouth every 6 hrs 08/17 AMOXICILLIN 63469743556 Meganjuan miguel Robertselan LIALDA 1.2 GM TBEC 2 tabs by mouth twice daily 08/17 MESALAMINE 55104984396 Megan Morguelan REMICADE 100 MG SOLR every 8 weeks 08/17 INFLIXIMAB 33868141886 Megan Morguelan Medications Administered No information available. [...] Procedures Code Procedure Name Date Entry Date CPT-54406 CMP CPT-cbcwmd CBC W/Manual Diff. 5 CPT-52916 C- reactive protein CPT-75935 Sedimentation Rate (ESR) 201 01/26/15 V406605, P10579T CPK CPT-37687 CMP [id number] CBC with Differential 2016 CPT-62793 C- reactive protein CPT-15849 Sedimentation Rate (ESR) 201 01/26/16 CPT-84727 CT Chest without contrast 13/08/15 CPT-68614 CMP CPT-48714 CT Chest w/o contrast 08/26 39840 Hepatitis C Atb: (ICD 10 Code: Z11.59) 20 12/06/29 CPT-cbcwmd CBC W/Manual Diff. 1 CPT-41697 CMP CPT-81599 C- reactive protein CPT-95300 Sedimentation Rate (ESR) 201 01/05/21 CPT-01607 Cryptococcus Antigen Serum 2 CPT-LAB Other CPT-sl STAT Labs CPT: fungblcx Fungal Blood cultures in mariana isolator tubes CPT-98843 Histoplasmosis Urinary AG 20 12/06/21 CPT-47205 Blastomyces Urinary Antigen CPT-84427 X-Ray, Chest, PA & Lateral 2 Vital [...]
--- OUTSIDE RECORDS SUMMARY | 2025-03-11 15:16 | XMS_ITS | Clinical Summary ---
Author Organization [facility] Address [address] [place] [address] Care Team Providers Care Color Dipper Name Role Phone Florentin Cochran MD Primary Care Provider [phone] Allergies Active Allergy Reactions Criticality Noted Date [...] Years (1 of 1 - PCV) 2006 [id number] Vaccine (4 - 2023- season) 2024 07/30/2021, 10/07/2020, 09/17/2020 UKY-Influenza Vaccine (#1) 03/28/202504/17, 04/24/2020, 06/02/2018, Additional history exists UKY-RSV Vaccine: [...] this topic Insurance [employer] Care Teams Color Dipper Relationship Specialty Start Date End Date Florentin Cochran MD [address] [place], [place] [id number] PCP - General 12/08/20
== END 2025-03-11 23:59 | disposition home or self-care (01) ==
LOC: RAD 15:14
PROVIDERS: PCP Family Medicine; Visit Provider Family Medicine
DX: R51.9 Headache, unspecified (principal); W19.XXXA Unspecified fall, initial encounter
CPT/HCPCS: 70450

== ENCOUNTER 2025-03-17 08:33 | Outpatient (CLI) | payer MEDICARE, SELFPAY ==
--- NOTE | 2025-03-17 09:00 | US_ITS ---
FINAL REPORT CLINICAL HISTORY: DECREASED PULSES,BILATERAL REST PAIN,HTN,HLD COMPARISON: None FINDINGS: ANKLE-BRACHIAL PRESSURE INDICES Pressure indices are as follows: RIGHT LOWER EXTREMITY: Ankle-brachial pressure index: 1.16 Comments: Normal LEFT LOWER EXTREMITY: Ankle-brachial pressure index: 1.03 Comments: Normal CONCLUSION: No evidence of significant obstructive peripheral vascular disease of the lower extremities Reviewed, Interpreted and Dictated by Jhoan Fisher MD Transcribed by Destiny Dunham Authenticated and . [facility]
--- OUTSIDE RECORDS SUMMARY | 2025-03-17 09:03 | XMS_ITS | Clinical Summary ---
Author Organization [facility] Address [address] [place] [address] Care Team Providers Care Hydraulic Boom Operator Name Role Phone Florentin Cochran MD Primary Care Provider [phone] Allergies Active Allergy Reactions Criticality Noted Date [...] Years (1 of 1 - PCV) 2006 [id number] Vaccine (4 - 2023- season) 2024 07/30/2021, [...] this topic Insurance [employer] Care Teams Hydraulic Boom Operator Relationship Specialty Start Date End Date Florentin Cochran MD [address] [place], [place] [id number] PCP - General 12/08/20
--- OUTSIDE RECORDS SUMMARY | 2025-03-17 09:04 | XMS_ITS | Encounter Summary ---
Author Organization [facility] Address [address] [place] [address] Care Team Providers Care Limnologist Name Role Phone Florentin Cochran MD Primary Care Provider [phone] Encounter Details Date Type Department Care Team (Late st Contact Info) Description 03/18/2019 Abstract DSB [facility] [address] [place] [address] Dental, Provider, DDS [address] [place] [address] Social History Tobacco Use Types Packs/Day Years [...] on filedocumented in this encounter Care Teams Limnologist Relationship Specialty Start Date End Date Florentin Cochran MD [address] [place] [address] PCP - General 12/08/20 documented as of this encounter
--- OUTSIDE RECORDS SUMMARY | 2025-03-17 09:04 | XMS_ITS | Clinical Summary ---
[facility] Organization [facility] Address [address] [place] [address] Care Team Providers Care Personnel Research Scientist Name Role Phone Maxi Walker MD Primary [...] exists ZOSTER VACCINE Completed 09/08/2018, 07/07/2018 Insurance [facility] MEDICARE ADVANTAGE Care Teams Personnel Research Scientist Relationship Specialty Start Date End Date Maxi Walker MD PCP - General Metal Roaster 06/17/16
== END 2025-03-17 23:59 | disposition home or self-care (01) ==
LOC: RT 08:34
PROVIDERS: PCP Family Medicine; Visit Provider Family Medicine
DX: I73.9 Peripheral vascular disease, unspecified (principal); I10 Essential (primary) hypertension; E78.5 Hyperlipidemia, unspecified; R20.0 Anesthesia of skin; R20.2 Paresthesia of skin; R20.8 Other disturbances of skin sensation
CPT/HCPCS: 93923

== ENCOUNTER 2025-03-29 09:30 | Outpatient (CLI) | payer MEDICARE, SELFPAY ==
[2025-03-29 09:42] VITALS: BMI 24.1
[2025-03-29 09:47] VITALS: BP 130/71; PULSE 79; RESP 18; TEMP 36.1; O2SAT 100
--- OUTSIDE RECORDS SUMMARY | 2025-03-29 09:58 | XMS_ITS | Clinical Summary ---
Author Organization [facility] Address [address] [place] [address] Care Team Providers Care Azure Developer Name Role Phone Florentin Cochran MD Primary Care Provider [phone] Allergies Active Allergy Reactions Criticality Noted Date [...] 11/20/2023 10:40 AM EDT Plan of Treatment Upcoming Encounters Date Type Department Care Team (Late st Contact Info) Description 07/12/2025 10:00 AM EST [facility] [address] [place] [address] Denise Scherer L, DO [address] [place] [address] Health Maintenance Due Date Last Done Comments [facility]-Bone Density Scan 1956 [facility]-Depression Screening 1956 [facility]-Hepatitis C Screening 1956 [facility]-Medicare Annual Wellness (AWV) 1956 [facility]-/Child/Adol SDOH Screenings 1956 UKY- SDOH Screenings 1974 [facility]Y-Adult SDOH Screenings 1974 [facility]Y-DTaP,Tdap,and Td Vaccines (1 - Tdap) 10/04/1996 10/03/1996 CT Colonography 2001 Colonoscopy 2001 FIT-DNA 2001 FIT 2001 FOBT 2001 Sigmoidoscopy 2001 [facility]Y-Colorectal Cancer Screening 2001 [facility]Y-Breast Cancer Screening 2006 [facility]Y-Pneumococcal Vaccine: 50+ Years (1 of 1 - PCV) 2006 [id number]-[id number] Vaccine (4 - 2023- season) 2024 07/30/2021, [...] patient's age to complete this topic Insurance [employer] Care Teams Azure Developer Relationship Specialty Start Date End Date Florentin Cochran MD [address] [place] [address] CRYSTAL Ferraro [address] PCP - General 12/08/20
--- OUTSIDE RECORDS SUMMARY | 2025-03-29 09:58 | XMS_ITS | Clinical Summary ---
Author Organization [facility] Address [address] [facility] [address] [place] [address] Phone Care Team Providers Care Machine Pie Maker Name Role Phone Gunnar BELL, Fiordaliza Cam [phone] [ ] Conditions or Problems Problem Name Problem Code Onset Date Status Entry Date Provider Comment Standard Description Annotate Myalgia 09727031 (SNOMED CT) 09/11 Active 09/11 Fiordaliza Maher MD Muscle pain Arthralgias 05464226 (SNOMED CT) 09/11 Active 09/11 Fiordaliza Maher MD Pain of joint Elevated liver enzymes 429982364 (SNOMED CT) 09/03 Active 09/20 Fiordaliza Maher MD Liver enzymes outside reference range Candidiasis of skin 304746339 (SNOMED CT) 09/01 Active 09/01 Carla Rafat Candidiasis of skin and nails 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 547515968 (SNOMED CT) 08/26 Active 08/30 Carla Rafat Childhood granulomatous periorificial dermatitis Pulmonary infiltrate- fibronodular 85424982 (SNOMED CT) 08/26 Resolved 08/26 Fiordaliza Maher MD Disorder of lung Pulmonary infiltrates- reticulonodu lar, acute vs chronic 720622682 (SNOMED CT) 08/26 Active 08/30 Fiordaliza Maher MD Asthmatic pulmonary eosinophilia 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 513340349 (SNOMED CT) 08/26 Inactive 08/30 Fiordaliza Maher MD Granulomatous disorder Pulmonary infiltrate- fibronodular 05396118 (SNOMED CT) 08/26 Removed 08/26 Fiordaliza Maher MD Disorder of lung Alopecia 25882434 (SNOMED CT) 08/17 Active 08/17 Fiordaliza Maher MD Alopecia Pruritus 563473493 (SNOMED CT) 08/17 Active 08/17 Fiordaliza Maher MD Pruritic disorder Chest pain, intermittent 00243081 (SNOMED CT) 08/17 Active 08/17 Fiordaliza Maher MD Chest pain Ulcerative colitis 23561576 (SNOMED CT) 08/17 Active 08/17 Fiordaliza Maher MD Ulcerative colitis 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 exterminator 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 481012803 (SNOMED CT) 08/17 Active 08/17 Fiordaliza Maher MD Drug therapy finding Histoplasma capsulatum, without mention of manifestatio n 58017391 (SNOMED CT) 08/17 Active 08/17 Fiordaliza Maher MD 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 09/03 METHYLPREDNISOLONE 74897374357 Fiordaliza Maher MD FLUCONAZOLE 200 MG TABS 2 daily for 10 days 08/17 FLUCONAZOLE 19295961221 Fiordaliza Maher MD REMICADE 100 MG SOLR every 8 weeks 08/17 INFLIXIMAB 61973721908 Fiordaliza Maher MD METHYLPREDNISOLONE 4 MG TABS For 3 additional days. 09/03 METHYLPREDNISOLONE 44440834852 Fiordaliza Maher MD METHYLPREDNISOLONE 4 MG TABS For 3 additional days. 09/03 METHYLPREDNISOLONE 33182782787 Domonique Shields FLUCONAZOLE 200 MG TABS 2 daily for 10 days 08/17 FLUCONAZOLE 85925412831 Fiordaliza Maher MD TYLENOL 325 MG CAPS Take/use as needed. 08/17 ACETAMINOPHEN 70467617225 Megan Morguelan EQL FISH OIL 1000 MG CAPS by mouth twice daily 08/17 OMEGA-3 FATTY ACIDS 47998799868 Meganjuan miguel Robertselan AMOXICILLIN 500 MG TABS by mouth every 6 hrs 08/17 AMOXICILLIN 89644715353 Meganjuan miguel Robertselan LIALDA 1.2 GM TBEC 2 tabs by mouth twice daily 08/17 MESALAMINE 99201445406 Megan Morguelan REMICADE 100 MG SOLR every 8 weeks 08/17 INFLIXIMAB 02426807810 Megan Morguelan Medications Administered No information available. [...] Procedures Code Procedure Name Date Entry Date CPT-54056 CMP CPT-cbcwmd CBC W/Manual Diff. 5 CPT-10946 C- reactive protein CPT-75360 Sedimentation Rate (ESR) 201 01/26/15 [id number], [id number] CPK CPT-57166 CMP [id number] CBC with Differential 2016 CPT-33821 C- reactive protein CPT-64292 Sedimentation Rate (ESR) 201 01/26/16 CPT-91465 CT Chest without contrast 13/08/15 CPT-85740 CMP CPT-17075 CT Chest w/o contrast 08/26 79410 Hepatitis C Atb: (ICD 10 Code: Z11.59) 20 12/06/29 CPT-cbcwmd CBC W/Manual Diff. 1 CPT-09771 CMP CPT-86910 C- reactive protein CPT-91100 Sedimentation Rate (ESR) 201 01/05/21 CPT-92563 Cryptococcus Antigen Serum 2 CPT-LAB Other CPT-sl STAT Labs CPT: fungblcx Fungal Blood cultures in mariana isolator tubes CPT-27361 Histoplasmosis Urinary AG 20 12/06/21 CPT-92477 Blastomyces Urinary Antigen CPT-61751 X-Ray, Chest, PA & Lateral 2 Vital [...]
--- OUTSIDE RECORDS SUMMARY | 2025-03-29 09:58 | XMS_ITS | Encounter Summary ---
Author Organization [facility] Address [address] [place] [address] Care Team Providers Care Gas Station Attendant Name Role Phone Florentin Cochran MD Primary Care Provider [phone] Encounter Details Date Type Department Care Team (Late Contact Info) Description 03/18/2019 Abstract [facility] [address] [place] [address] Dental, Provider, [address] [address] Social History Tobacco Use Types Packs/Day Years Used Date Smoking Tobacco: Never Assessed Comments Unknown Sex and Gender Information Value Date Recorded Sex Assigned at Not on file Legal Sex Female 8:34 PM EDT Gender Identity Not on file Sexual Orientation Not on file documented as of this encounter Plan of Treatment Upcoming Encounters Date Type Department Care Team (Late Contact Info) Description 07/12/2025 10:00 AM EST Office Visit [facility] Medicine Specialties [address], [address] [place] [address] Dneise Scherer L, DO [address] [place] [address] documented as of this encounter Visit Diagnoses Not on filedocumented in this encounter Care Teams Gas Station Attendant Relationship Specialty Start Date End Date Florentin Cochran MD [address] [place] [address] PCP - General 12/08/20 documented as of this encounter
--- OUTSIDE RECORDS SUMMARY | 2025-03-29 09:58 | XMS_ITS | Clinical Summary ---
Author Organization [facility] Address [address] [place] [address] Care Team Providers Care Automation Technologist Name Role Phone Maxi Walker MD Primary [...] VACCINE Completed 09/08/2018, 07/07/2018 Insurance [facility] MEDICARE ADVANTAGE Care Teams Automation Technologist Relationship Specialty Start Date End Date Maxi Walker MD PCP - General Auditor Medical Claims 06/17/16
--- NOTE | 2025-03-29 10:00 | CT_ITS ---
APPROVED REPORT Video Game Developer: CLINICAL INDICATION Chest Pain TECHNIQUE Image Acquisition: A 128 slice MDCT scanner (Rocket Reliefa View) was used for data acquisition. A noncontrast coronary calcium scan was performed. A CT attenuation threshold of 130 Hounsfield units (HU) was used for the detection of calcium in contiguous voxels of 1 sq mm in area to be counted as individual lesions. Bolus tracking in the ascending aorta with a threshold of 180 HU was performed. Immediately afterwards, ECG synchronized cardiac CT was then performed from the cardiac base to apex using retrospective gating with ECG tube current modulation. A total of 85 mL of Isovue 370 mg/mL contrast medium was administered at 5 mL/sec followed by a saline flush using a biphasic injection protocol. A tube voltage of 120 KVp was used. The patient received the following medications prior to the cardiac CT. 50 mg of oral metoprolol 15 mg of oral ivabradine The average heart rate at the time of acquisition was 50 bpm and regular. Image Reconstruction Transaxial images were reconstructed at 0.67 mm slide thickness. Data was reviewed interactively on an advanced workstation capable of 2 and 3-dimensional displays in all conventional reconstruction formats, including multiplanar reformations, maximum intensity projections, curved multiplanar reformations, and volume rendered reconstructions. When applicable, selected routine images describing the relevant coronary anatomy and pathology were saved and sent to PACS. Complications None Technical Quality Overall image quality was good. Coronary artery opacification was adequate. Total DLP (Dose-Length Product) is 1439.0 mGy-cm. The reported value represents the total of one or more individual components during the CT acquisition of this date and at this time, and as such, the same value may appear in more than one CT report depending on the interpreting/reporting physicians. COMPARISON None FINDINGS CT Coronary Calcium Scoring LMA (Left Main Artery) = 0 LAD (Left Anterior Descending) = 18 LCX (Left Coronary Circumflex) = 0 RCA (Right Coronary Artery) = 0 Total Calcium Score = 18 using the AJ-130 method. The observed calcium score of 18 is at 57th percentile for subjects of the same age, sex, and race/ethnicity. The interpretation of the calcium heart score is based on the following continuum*: 0 = no calcified plaque detected (risk of coronary artery disease is very low ??? less than 5%) 1-10 = calcium detected in extremely minimal levels (risk of coronary diseases is still low ??? less than 10%) 11-100 = mild levels of plaque detected with certainty (mild or minimal narrowing of heart arteries is likely) 101-400 = definite,at least moderate levels of plaque detected (relatively high risk of a heart attack within 3-5 years) >401-999 = extensive levels of plaque detected (high risk of heart attack, high levels of vascular disease are present, high likelihood of at least one significant coronary narrowing) *The calcium heart score quantifies the burden of coronary calcification/plaque in the coronary arteries. The calcium heart score is not able to evaluate the presence or burden of non-calcified (i.e. soft) plaque. There is calcification in the ascending and descending thoracic aorta. Coronary CT Angiography The coronary arterial system is left dominant. Quantitative Stenosis Grading: Left Main (LM): The left main originates normally from the left sinus of Valsalva. The LM bifurcates into the left anterior descending artery and left circumflex artery. The LM is patent with no evidence of atherosclerosis. Left Anterior Descending (LAD) and Diagonal Branches: The LAD gives off 3 diagonal branch(es). There is 1 focus of calcified plaque in the proximal LAD segment, with < 25% luminal stenosis. There is no evidence of LAD-myocardial bridge. Left Circumflex (LCX) and Obtuse Marginals (OM): The LCX gives off 3 Obtuse Marginal (OM) branch(es). The LCX and its branches are patent with no evidence of atherosclerosis. Right Coronary Artery (RCA): The RCA originates normally from the right sinus of Valsalva. The RCA and its branches are patent with no evidence of atherosclerosis. Non-Coronary Cardiac Findings: Analysis of the left ventricular (LV) structure and function was performed after 3-D reconstruction of the LV from axial images, with user-corrected automatic contouring for assessment of LV volumes and user-defined reconstruction from oblique planes for measurement of 3-D cardiac structure and function. -The left ventricle systolic function is normal. -There is no left atrial appendage filling defect. Two right pulmonary veins and two left pulmonary veins drain normally into the left atrium. -No pericardial thickening or calcification. -Central and branch pulmonary arteries in the gcpeb-kq-zlet are unremarkable. -Thoracic aorta within the visualized thoracic aortic-branches in the reltu-ca-ahci is unremarkable. Extracardiac Structures No significant extra-cardiac findings. Note, however, that this study is focused on the cardiac findings. IMPRESSION -Presence of coronary calcification with an Agatston score = 18 using the AJ-130 method. -The observed calcium score of 18 is at 57th percentile for subjects of the same age, sex, and race/ethnicity. -No evidence of significant flow-limiting atherosclerosis of the coronary arteries. -CAD-RADS 1. Management recommendations per ACC/AHA guidelines*, as clinically appropriate. *Recommendations: CAD RADS 0: Reassurance. Consider non-atherosclerotic causes of chest pain. CAD RADS 1: Consider non-atherosclerotic causes of chest pain. Consider preventive therapy and risk factor modification. CAD RADS 2: Consider non-atherosclerotic causes of chest pain. Consider preventive therapy and risk factor modification, particularly for patients with nonobstructive plaque in multiple segments. CAD RADS 3: Consider further functional testing. Consider symptom-guided anti-ischemic and preventive pharmacotherapy as well as risk factor modification per published guideline statements. CAD RADS 4A: Consider further functional testing or invasive coronary angiography with revascularization per published guideline statements. Consider symptom-guided anti-ischemic and preventive pharmacotherapy as well as risk factor modification per published guideline statements. CAD RADS 4B: Invasive coronary angiography recommended with revascularization per published guideline statements. Consider symptom-guided anti-ischemic and preventive pharmacotherapy as well as risk factor modification per published guideline statements. CAD RADS 5: Consider invasive angiography and/or viability assessment with revascularization per published guideline statements. Consider symptom-guided anti-ischemic and preventive pharmacotherapy as well as risk factor modification per published guideline statements. CRITICAL RESULT None COMMUNICATION Per this written report The coronary and cardiac findings of this CCTA were reviewed, reported, and signed by Arnav Rose MD (Universal Branch Consultant) Conclusion Electronically signed by : Milla Rose MD 03/30/2025 14:11:13
[2025-03-29] MEDS: IVABRADINE HCL 7.5MG TABLET PO (10:05)
[2025-03-29] MEDS: METOPROLOL TARTRATE 50MG TABLET PO (10:05)
[2025-03-29 10:07] LABS: Chloride 106 mmol/L (98-107); Sodium 140 mmol/L (136-145)
[2025-03-29 10:08] LABS: Potassium 3.7 mmoL/L (3.5-5.1)
[2025-03-29 10:11] LABS: Anion Gap 7.7 mEq/L (5-15); Blood Urea Nitrogen 20 mg/dl (7-17); Calcium 9.6 mg/dl (8.4-10.2); Carbon Dioxide 30 mmol/L (22.0-30.0); Creatinine Clearance Estimated 56 mL/min (50-200); Creatinine,Serum 0.60 mg/dl (0.52-1.04); Estimated Glomerular Filt Rate 99 ml/min (>60); GFR (African American) 120 ML/MIN (>60); Glucose 84 mg/dl (74-100)
[2025-03-29 11:20] VITALS: BP 139/65; PULSE 58; RESP 18; O2SAT 98
[2025-03-29 11:25] VITALS: BP 129/71; PULSE 53; RESP 18; O2SAT 100
[2025-03-29 11:28] VITALS: BP 133/82; PULSE 58; RESP 16; O2SAT 99
[2025-03-29] MEDS: SODIUM CHLORIDE 0.9% 10ML SYR (RAD ONLY) 10 ML IV (11:34)
[2025-03-29] MEDS: IOPAMIDOL-370 (76%);100ML BOTTLE 85 ML IV (11:34)
[2025-03-29] MEDS: 0.9 % SODIUM CHLORIDE 50 ML VIAL IV (11:34)
== END 2025-03-29 11:39 | disposition home or self-care (01) ==
PROVIDERS: PCP Family Medicine; Visit Provider Family Medicine
DX: I25.118 Atherosclerotic heart disease of native coronary artery with other forms of angina pectoris (principal); I49.3 Ventricular premature depolarization; R93.1 Abnormal findings on diagnostic imaging of heart and coronary circulation; I31.39 Other pericardial effusion (noninflammatory); E78.5 Hyperlipidemia, unspecified
CPT/HCPCS: 75574; 80048; Q9967

== ENCOUNTER 2025-04-05 10:23 | Outpatient (CLI) | payer MEDICARE, SELFPAY ==
--- NOTE | 2025-04-05 10:35 | ECG_ITS ---
APPROVED REPORT Exam: Resting ECG HR:75 bpm ECG Measurements Heart Rate 75 AXES UT 118 P 63 QRSd 82 QRS 74 QT 390 T 56 QTc 419 Conclusion SINUS RHYTHM WITH SHORT UT INTERVAL BORDERLINE ECG UNCONFIRMED REPORT Electronically signed by : Desean Dash MD 04/06/2025 08:27:46
--- OUTSIDE RECORDS SUMMARY | 2025-04-05 10:37 | XMS_ITS | Clinical Summary ---
Author Organization [facility] Address [address] [facility] [address] [place] [address] Phone Care Team Providers Care Drop Wire Operator Name Role Phone Gunnar BELL, Fiordaliza Cam [ ] Conditions or Problems Problem Name Problem Code Onset Date Status Entry Date Provider Comment Standard Description Annotate Myalgia 22862547 (SNOMED CT) 09/11 Active 09/11 Fiordaliza Maher MD Muscle pain Arthralgias 65641282 (SNOMED CT) 09/11 Active 09/11 Fiordaliza Maher MD Pain of joint Elevated liver enzymes 450289622 (SNOMED CT) 09/03 Active 09/20 Fiordaliza Maher MD Liver enzymes outside reference range Candidiasis of skin 522882510 (SNOMED CT) 09/01 Active 09/01 Carla Rafat Candidiasis of skin and nails 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 228781388 (SNOMED CT) 08/26 Active 08/30 Carla Rafat Childhood granulomatous periorificial dermatitis Pulmonary infiltrate- fibronodular 97078372 (SNOMED CT) 08/26 Resolved 08/26 Fiordaliza Maher MD Disorder of lung Pulmonary infiltrates- reticulonodu lar, acute vs chronic 585544610 (SNOMED CT) 08/26 Active 08/30 Fiordaliza Maher MD Asthmatic pulmonary eosinophilia 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 234072619 (SNOMED CT) 08/26 Inactive 08/30 Fiordaliza Maher MD Granulomatous disorder Pulmonary infiltrate- fibronodular 50903165 (SNOMED CT) 08/26 Removed 08/26 Fiordaliza Maher MD Disorder of lung Alopecia 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 (SNOMED CT) 08/17 Active 08/17 Fiordaliza Maher MD Alopecia Pruritus 236880490 (SNOMED CT) 08/17 Active 08/17 Fiordaliza Maher MD Pruritic disorder Chest pain, intermittent 98955242 (SNOMED CT) 08/17 Active 08/17 Fiordaliza Maher MD Chest pain Ulcerative colitis 30332656 (SNOMED CT) 08/17 Active 08/17 Fiordaliza Maher MD Ulcerative colitis 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 221258665 (SNOMED CT) 08/17 Active 08/17 Fiordaliza Maher MD Drug therapy finding Histoplasma capsulatum, without mention of manifestatio n 74351726 (SNOMED CT) 08/17 Active 08/17 Fiordaliza Maher MD 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 09/03 METHYLPREDNISOLONE 61206949456 Fiordaliza Maher MD FLUCONAZOLE 200 MG TABS 2 daily for 10 days 08/17 FLUCONAZOLE 05952540898 Fiordaliza Maher MD REMICADE 100 MG SOLR every 8 weeks 08/17 INFLIXIMAB 94847025474 Fiordaliza Maher MD METHYLPREDNISOLONE 4 MG TABS For 3 additional days. 09/03 METHYLPREDNISOLONE 59887832545 Fiordaliza Maher MD METHYLPREDNISOLONE 4 MG TABS For 3 additional days. 09/03 METHYLPREDNISOLONE 51294124344 Domonique Shields FLUCONAZOLE 200 MG TABS 2 daily for 10 days 08/17 FLUCONAZOLE 37745284623 Fiordaliza Maher MD TYLENOL 325 MG CAPS Take/use as needed. 08/17 ACETAMINOPHEN 39674079209 Megan Morguelan EQL FISH OIL 1000 MG CAPS by mouth twice daily 08/17 OMEGA-3 FATTY ACIDS 33312252713 Meganjuan miguel Robertselan AMOXICILLIN 500 MG TABS by mouth every 6 hrs 08/17 AMOXICILLIN 98203400900 Meganjuan miguel Robertselan LIALDA 1.2 GM TBEC 2 tabs by mouth twice daily 08/17 MESALAMINE 76675218655 Megan Morguelan REMICADE 100 MG SOLR every 8 weeks 08/17 INFLIXIMAB 58833634483 Megan Morguelan Medications Administered No information available. [...] Procedures Code Procedure Name Date Entry Date CPT-55649 CMP CPT-cbcwmd CBC W/Manual Diff. 5 CPT-87036 C- reactive protein CPT-79136 Sedimentation Rate (ESR) 201 01/26/15 [id number], [id number] CPK CPT-15281 CMP [id number] CBC with Differential 2016 CPT-28605 C- reactive protein CPT-67797 Sedimentation Rate (ESR) 201 01/26/16 CPT-13928 CT Chest without contrast 13/08/15 CPT-33393 CMP CPT-45829 CT Chest w/o contrast 08/26 [address]12 Hepatitis C Atb: (ICD 10 Code: Z11.59) 20 12/06/29 CPT-cbcwmd CBC W/Manual Diff. 1 CPT-38815 CMP CPT-79975 C- reactive protein CPT-52843 Sedimentation Rate (ESR) 201 01/05/21 CPT-85314 Cryptococcus Antigen Serum 2 CPT-LAB Other CPT-sl STAT Labs CPT: fungblcx Fungal Blood cultures in mariana isolator tubes CPT-52187 Histoplasmosis Urinary AG 20 12/06/21 CPT-31279 Blastomyces Urinary Antigen CPT-45799 X-Ray, Chest, PA & Lateral 2 Vital [...]
--- OUTSIDE RECORDS SUMMARY | 2025-04-05 10:38 | XMS_ITS | Clinical Summary ---
Author Organization [facility] Address [address] [place] [address] Care Team Providers Care Supplier Relationship Director Name Role Phone Florentin Cochran MD Primary Care Provider [phone] Allergies Active Allergy Reactions Criticality Noted Date [...] Description 07/12/2025 10:00 AM EST Office Visit [facility] [address] [place] [address] Denise Scherer L, DO [address] [place] [address] Health Maintenance Due Date Last Done Comments [...] Years (1 of 1 - PCV) 2006 [id number] Vaccine (4 - season) 2025 07/30/2021, 10/07/2020, 09/17/2020 [facility]-Influenza Vaccine (#1) 03/28/202504/17, [...] this topic Insurance [employer] MEDICARE Care Teams Supplier Relationship Director Relationship Specialty Start Date End Date Florentin Cochran MD [address] [place] [address] CRYSTAL Ferraro [address] PCP - General 12/08/20
--- OUTSIDE RECORDS SUMMARY | 2025-04-05 10:38 | XMS_ITS | Clinical Summary ---
Author Organization [facility] Address [address] [place] [address] Care Team Providers Care Member Of Technical Staff Name Role Phone Maxi Walker MD Primary [...] C SCREENING 10/10/2023 COVID-19 Vaccine (4 - 2024-2 6 season) 2025 07/30/2021, 10/07/2020, 09/17/2020 INFLUENZA VACCINE 04/27/2025 04/17/2021, , 06/02/2018, Additional history exists ZOSTER VACCINE Completed 09/08/2018, 07/07/2018 Insurance [facility] MEDICARE ADVANTAGE Care Teams Member Of Technical Staff Relationship Specialty Start Date End Date Maxi Walker MD PCP - General Food Safety Field Specialist 06/17/16
--- OUTSIDE RECORDS SUMMARY | 2025-04-05 10:38 | XMS_ITS | Encounter Summary ---
Author Organization [facility] Address [address] [place] [address] Care Team Providers Care Alcohol Law Enforcement Agent Name Role Phone Florentin Cochran MD Primary Care Provider [phone] Encounter Details Date Type Department Care Team (Late Contact Info) Description 03/18/2019 Abstract [facility] [address] [place] [address] Dental, Provider, [address] [address] Social History Tobacco Use Types Packs/Day Years [...] Description 07/12/2025 10:00 AM EST Office Visit [facility] Medicine Specialties [address] [place] [address] Denise Scherer L, DO [address] [place] [address] documented as of this encounter Visit Diagnoses Not on filedocumented in this encounter Care Teams Alcohol Law Enforcement Agent Relationship Specialty Start Date End Date Florentin Cochran MD [address] [place] [address] PCP - General 12/08/20 documented as of this encounter
== END 2025-04-05 23:59 | disposition home or self-care (01) ==
LOC: RT 10:23
PROVIDERS: PCP Family Medicine; Visit Provider Internal Medicine Gastroenterology
DX: R94.31 Abnormal electrocardiogram [ECG] [EKG] (principal); Z76.89 Persons encountering health services in other specified circumstances; Z87.19 Personal history of other diseases of the digestive system
CPT/HCPCS: 93005

== ENCOUNTER 2025-06-07 07:23 | Day surgery (SDC) | payer MEDICARE, SELFPAY ==
[2025-06-01 14:11] VITALS: BMI 23.3
[2025-06-07] MEDS: TETRACAINE 0.5% OPTH SOL 15ML OP ×4 (08:25→08:50)
[2025-06-07] MEDS: PHENYLEPHRINE 2.5% OPHTH SOLN 2ML OP ×3 (08:25→08:35)
[2025-06-07] MEDS: CYCLOPENTOLATE 2% OPHTH SOLN 2ML BOTTLE OP ×3 (08:25→08:35)
[2025-06-07 08:28] VITALS: BP 131/86; PULSE 66; RESP 17; TEMP 36.2; O2SAT 99
[2025-06-07 10:05] VITALS: BP 119/68; PULSE 59; RESP 16; O2SAT 95
[2025-06-07] MEDS: MIDAZOLAM 2MG/2ML VIAL 1 MG IV (10:06)
[2025-06-07] MEDS: LIDOCAINE 1% PF 2ML VIAL 2 ML IJ (10:06)
[2025-06-07] MEDS: TOBRAMYCIN/DEX OPTH SUSP 2.5ML OP (10:07)
[2025-06-07] MEDS: TIMOLOL 0.5% OPTH SOLN 5ML OP (10:07)
[2025-06-07 10:10] VITALS: BP 120/71; PULSE 60; RESP 16; O2SAT 95
[2025-06-07 10:15] VITALS: BP 129/74; PULSE 59; RESP 16; O2SAT 97
[2025-06-07 10:18] VITALS: BP 118/67; PULSE 60; RESP 16; O2SAT 97
[2025-06-07 10:20] VITALS: BP 130/69; PULSE 60; RESP 18; O2SAT 96
--- NOTE | 2025-06-07 12:16 | HMH.PROCNOTE ---
[facility] Procedure Note Date: 06/07/25 Time: 12:16 Procedure Note:: Preoperative Diagnosis: Cataract combined NS Cortical Complex [Right] Eye Postop diagnosis: same Operation: Microscopic phacoemulsification with intraocular lens implant [Right] Eye Specimen: None Blood Loss: None The patient was examined in the office with a complaint of poor vision in the [right] eye. The patient reports that this interferes with ADLs such as reading, watching TV and/or driving or the vision is like looking through a foggy haze and is very troubling. The patient was examined and found to have a visually significant cataract with best corrected vision of [20/400] by refraction and/or glare testing. Treatment options, risks and benefits were explained and the patient elected to have cataract surgery in an attempt to improve their vision. The patient had the eye anesthetized with topical tetracaine, the eye ways prepped and draped in the usual fashion for cataract surgery. A paracentesis and a temporal keratotomy were made. 0.2cc of 1% lidocaine PF was placed into the anterior chamber. And aqueous/viscoelastic exchange was done and a 360 degree capsulorexis was performed. Through hydrodissection and delineation with BSS on a cannula was done. The lens nucleus was phecoemulsified with CDE of [3.77]. Residual cortical material was removed using automated I&A The capsular bag was deepened with viscoelastica and a PCIOL was placed in the capsular bag with good centration and stability. Residual viscoelastic was removed using automated I&A. The keratotomy incision was hydrated with BSS on a cannula. The wound were checked and found to be water tight. IOP was checked digitally and adjusted as needed so as not to be too high. 1 drop of timolol 0.5%, ofloxacin, prednisolone acetate and ketorolac was instilled and eye shield taped over the eye. The patient was taken to recovery in good condition and will be seen postoperatively.
== END 2025-06-07 10:35 | disposition home or self-care (01) ==
PROVIDERS: PCP Family Medicine; Visit Provider Ophthalmology
DX: H25.811 Combined forms of age-related cataract, right eye (principal); H02.836 Dermatochalasis of left eye, unspecified eyelid; H02.833 Dermatochalasis of right eye, unspecified eyelid; F41.9 Anxiety disorder, unspecified; E78.5 Hyperlipidemia, unspecified; G43.909 Migraine, unspecified, not intractable, without status migrainosus; K51.90 Ulcerative colitis, unspecified, without complications; Z85.038 Personal history of other malignant neoplasm of large intestine; Z88.3 Allergy status to other anti-infective agents; Z88.8 Allergy status to other drugs, medicaments and biological substances; Z79.899 Other long term (current) drug therapy
CPT/HCPCS: 66982; J2250; V2632

== ENCOUNTER 2025-07-05 07:08 | Day surgery (SDC) | payer MEDICARE, SELFPAY ==
[2025-06-30 15:25] VITALS: BMI 25.0
[2025-07-05] VITALS (7 sets, daily range): BP systolic 106–142; BP diastolic 60–82; PULSE 56–63; RESP 16–18; TEMP 36.1–36.2; O2SAT 95–99
[2025-07-05] MEDS: TETRACAINE 0.5% OPTH SOL 15ML OP ×4 (08:25→08:50)
[2025-07-05] MEDS: CYCLOPENTOLATE 2% OPHTH SOLN 2ML BOTTLE OP ×3 (08:25→08:35)
[2025-07-05] MEDS: PHENYLEPHRINE 2.5% OPHTH SOLN 2ML OP ×3 (08:25→08:35)
[2025-07-05] MEDS: TOBRAMYCIN/DEX OPTH SUSP 2.5ML OP (09:41)
[2025-07-05] MEDS: MIDAZOLAM 2MG/2ML VIAL 1 MG IV (09:41)
[2025-07-05] MEDS: TIMOLOL 0.5% OPTH SOLN 5ML OP (09:41)
[2025-07-05] MEDS: LIDOCAINE 1% PF 2ML VIAL 2 ML IJ (09:42)
--- NOTE | 2025-07-05 13:13 | HMH.PROCNOTE ---
[facility] [place] Procedure Note Date: 07/05/25 Time: 13:14 Procedure Note:: Preoperative Diagnosis: Cataract combined NS Cortical Complex [Left] Eye Postop diagnosis: same Operation: Microscopic phacoemulsification with intraocular lens implant [Left] Eye Specimen: None Blood Loss: None The patient was examined in the office with a complaint of poor vision in the [left] eye. The patient reports that this interferes with ADLs such as reading, watching TV and/or driving or the vision is like looking through a foggy haze and is very troubling. The patient was examined and found to have a visually significant cataract with best corrected vision of [20/200] by refraction and/or glare testing. Treatment options, risks and benefits were explained and the patient elected to have cataract surgery in an attempt to improve their vision. The patient had the eye anesthetized with topical tetracaine, the eye ways prepped and draped in the usual fashion for cataract surgery. A paracentesis and a temporal keratotomy were made. 0.2cc of 1% lidocaine PF was placed into the anterior chamber. And aqueous/viscoelastic exchange was done and a 360 degree capsulorexis was performed. Through hydrodissection and delineation with BSS on a cannula was done. The lens nucleus was phecoemulsified with CDE of [6.63]. Residual cortical material was removed using automated I&A The capsular bag was deepened with viscoelastica and a PCIOL was placed in the capsular bag with good centration and stability. Residual viscoelastic was removed using automated I&A. The keratotomy incision was hydrated with BSS on a cannula. The wound were checked and found to be water tight. IOP was checked digitally and adjusted as needed so as not to be too high. 1 drop of timolol 0.5%, ofloxacin, prednisolone acetate and ketorolac was instilled and eye shield taped over the eye. The patient was taken to recovery in good condition and will be seen postoperatively.
== END 2025-07-05 10:08 | disposition home or self-care (01) ==
PROVIDERS: PCP Family Medicine; Visit Provider Ophthalmology
DX: H25.812 Combined forms of age-related cataract, left eye (principal); H02.836 Dermatochalasis of left eye, unspecified eyelid; H02.833 Dermatochalasis of right eye, unspecified eyelid
CPT/HCPCS: 66984; J2250; V2632

== ENCOUNTER 2025-07-13 11:15 | Outpatient (CLI) | payer MEDICARE, SELFPAY ==
--- OUTSIDE RECORDS SUMMARY | 2025-07-12 10:00 | XMS_ITS | Encounter Summary ---
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) Procedures Colonoscopy Denise Scherer DO [address] [address] Phone: tel: fax: Referral ID Status Reason Start Date Expiration Date Visits Requested Visits Authorized [id number] Authorized Specialty Services Required 01/11/2027 1 1 * Consultation (Routine) - Authorized Specialty Diagnoses / Procedures Referred By Melissa weiner Referred To Contact Diagnoses Ulcerative rectosigmoiditis without complication ([facility]/HCC) Denise Scherer DO [address] [address] Phone: tel: fax: Referral ID Status Reason Start Date Expiration Date V isits Requested Visits Authorized [id number] Authorized 07/12/2025 01/11/2027 1 1 Reason for Visit * Reason Comments Other ulcerative colitis without complic ations * Consultation (Routine) - Closed Specialty Diagnoses / Procedures Referred By Melissa weiner Referred To Contact Gastroenterology Diagnoses Other ulcerative colitis without complications (CMS/HCC) Terra Castro, CONTENT EDITOR [address] [place] [address] Phone: tel: fax: Referral ID Status Reason Start Date Expiration Date V isits Requested Visits Authorized [id number] Closed Specialty Services Required 03/17/2025 09/16/2026 1 1 Encounter Details Date Type Department Care Team (Latest Contact Info) Description 07/12/2025 10:00 AM EST [facility] Visit [facility] [address] [place] [address] Denise Scherer, DO [address] [place] [address] 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) (Primary Dx); History of histoplasmosis Social History Tobacco Use Types Packs/Day Years Used Date Smoking Tobacco: Never Passive Smoke Exposure: Never Smokeless Tobacco: Never Alcohol Use Standard Drinks/Week Comments Never 0 (1 standard drink = 0.6 oz pur e alcohol) PHQ-2 Answer Date Recorded Patient Health Questionnaire-2 Score 0 07/12/2025 PHQ-9 Answer Date Recorded Patient Health Questionnaire-9 Score 0 07/12/2025 Comments Unknown Sex and Gender Information Value Date Recorded Sex Assigned at Not on file Legal Sex Female 8:34 PM EDT Gender Identity Not on file Sexual Orientation Not on file documented as of this encounter Last Filed Vital Signs Vital Sign Reading Time Taken Comments Blood Pressure 129/78 07/12/2025 10:25 AM EST Pulse 65 07/12/2025 10:25 AM EST Temperature 36.6 C (97.9 F) 07/12/2025 10:25 AM EST Respiratory Rate 18 07/12/2025 10:25 AM EST Oxygen Saturation 95% 07/12/2025 10:25 AM EST Inhaled Oxygen Concentration - - Weight 68 kg (149 lb 14.6 oz) 07/12/2025 10:25 A M EST Height 165.1 cm (5' 5 ) 07/12/2025 10:25 AM MADDIE Body Mass Index 24.95 07/12/2025 10:25 AM EST documented in this encounter Functional Status * Over the past 2 weeks, how often have you been bothered by any of the following problems? Question Answer Date of Assessment Author Little interest or pleasure in doing things Not at all 07/12/2025 10:38 AM Britta Huynh CNA Feeling down, depressed, or hopeless Not at all 07/12/2025 10:38 AM Britta Huynh CNA Patient Health Questionnaire-2 Score 0 07/12/2025 10:38 AM Lacy Huynh CNA * Question Answer Date of Assessment Author Trouble falling or staying asleep, or sleeping too much Not at all 07/12/2025 10:38 AM Britta Huynh CNA Feeling tired or having little energy Not at all 07/12/2025 10:38 AM Britta Huynh CNA Poor appetite or overeating Not at all 07/12/2025 10 :38 AM Britta Huynh CNA Feeling bad about yourself - or that you are a failure or have let yourself or your family down Not at all 07/12/2025 10:38 AM Britta Huynh CNA Trouble concentrating on things, such as reading the newspaper or watching television Not at all 07/12/2025 10:38 AM Britta Huynh CNA Moving or speaking so slowly that other people could have noticed. Or the opposite - being so fidgety or restless that you have been moving around a lot more than usual Not at all 07/12/2025 10:38 AM Britta Huynh CNA Thoughts that you would be better off or hurting yourself in some way Not at all 07/12/2025 10:38 AM Britta Huynh CNA Patient Health Questionnaire-9 Score 0 07/12/2025 10:38 AM Lacy Huynh CNA * How difficult have these problems made it for you to do your work, take care of things at home, or get along with other people? Answer Date of Assessment Author Not difficult at all 07/12/2025 10:38 AM EST Smi Britta gallo CNA documented as of this encounter Miscellaneous Notes * Jose Enrique Stroud, PharmD - 07/12/2025 12:41 PM EST Images from the original note were not included. [id number] Vedolizumab Injection WHY is this medicine prescribed? Vedolizumab injection is used to relieve the symptoms of certain autoimmune disorders (conditions in which the immune system attacks healthy parts of the body and causes pain, swelling, and damage) of the gastrointestinal tract including: ? Crohn's disease (a condition in which the body attacks the lining of the digestive tract, causingpain, diarrhea, weight loss, and fever) that has not improved when treated with other medications. ? ulcerative colitis (condition that causes swelling and sores in the lining of the large intestine) that has not improved when treated with other medications. Vedolizumab injection is in a class of medications called integrin receptor antagonists. It works by blocking the action of certain cells in the body that cause inflammation. HOW should this medicine be used? Vedolizumab injection comes as a powder to be mixed with sterile water and injected intravenously (into a vein) over 30 minutes by a doctor or nurse. It is usually given in a doctor's office once every 2 to 8 weeks, more often in the beginning of your treatment and less often as your treatment continues. Vedolizumab injection also comes as a prefilled syringe and prefilled pen to be given subcutaneously (under the skin). Your doctor may switch you from intravenous to subcutaneous injection at 6weeks after 2 previous doses of intravenous vedolizumab given at weeks 0 and 2. It is usually givenevery 2 weeks when given subcutaneously. Vedolizumab injection (intravenous) may cause serious allergic reactions during an infusion and forseveral hours afterward. A doctor or nurse will monitor you during this time to be sure you are nothaving a serious reaction to the medication. You may be given other medications to treat reactions to vedolizumab injection. Tell your doctor or nurse immediately if you experience any of the following symptoms during or after your infusion: rash; itching; swelling of the face, eyes, mouth, throat,tongue, or lips; difficulty breathing or swallowing; wheezing, flushing; dizziness; feeling hot; ora fast or racing heartbeat. Vedolizumab injection can be given subcutaneously at home by patients or caregivers trained on subcutaneous technique. Always look at vedolizumab prefilled syringe or pen before injecting it. Check that the expiration date has not passed and that the liquid is clear and colorless or slightly yellow. The liquid should not contain visible particles. Do not use a dosing pen or syringe if it is , appears damaged, or if the liquid is cloudy, discolored, or contains particles. You can inject vedolizumab injection anywhere on front of your thighs (upper leg) or abdomen (stomach) except your navel and the area 2 inches (5 centimeters) around it. If someone else is giving youthe injection, that person can also inject the medication into your upper, outer arms. Use a different site for each injection to reduce the chances of soreness or redness. Do not inject into an areawhere the skin is tender, bruised, red, or hard or where you have scars or stretch franz. Vedolizumab prefilled syringes or pens should be stored in the refrigerator. Remove the prefilled dosing pen or syringe from the refrigerator and allow it to warm to room temperature for 30 minutes before using it. Take it out of its carton, and allow it to rest on a flat surface so that it can warm to room temperature. Do not try to warm the medication by heating it in a microwave, placing it inhot water, or through any other method. Vedolizumab prefilled syringes or pens can be left at room temperature for up to 7 days. Any used syringes need to be thrown away after 7 days at room temperature. Do not remove the cap from the prefilled dosing pen while the medication is warming. You should remove the cap right before you inject the medication. Do not replace the cap after you remove it. Do not use the device if you drop it on the floor. Never shake the prefilled dosing pen. This may damage the medication. Vedolizumab injection may help control your symptoms, but it will not cure your condition. Your doctor will watch you carefully to see how well vedolizumab injection works for you. If your condition has not improved after 14 weeks, your doctor may stop treating you with vedolizumab injection. It isimportant to tell your doctor how you are feeling during your treatment. Your doctor or pharmacist will give you the record label internship's patient information sheet (Medication Guide) when you begin treatment with vedolizumab injection and each time you receive the medication. Read the information carefully and ask your doctor or pharmacist if you have any questions. You can also visit the Food and Drug Administration (FDA) website (https://www.fda.gov/Drugs/DrugSafety/lwu074974.htm) or the record label internship's website to obtain the Medication Guide. Are there OTHER USES for this medicine? This medication may be prescribed for other uses; ask your doctor or pharmacist for more information. What SPECIAL PRECAUTIONS should I follow? Before taking vedolizumab, ? tell your doctor and pharmacist if you are allergic to vedolizumab, any other medications, or anyof the ingredients in vedolizumab injection. Ask your pharmacist or check the Medication Guide for a list of the ingredients. ? tell your doctor and pharmacist what prescription and nonprescription medications, vitamins, nutritional supplements, and herbal products you are taking or plan to take while receiving vedolizumab injection. Your doctor may need to change the doses of your medications or monitor you carefully forside effects. ? tell your doctor if you have liver problems, if you have tuberculosis or have been in close contact with someone with tuberculosis, or if you currently have or think you have an infection, or if you have infections that come and go or ongoing infections that do not go away. ? tell your doctor if you are , plan to become , or are . If you become while taking vedolizumab, call your doctor. ? ask your doctor whether you should receive any vaccinations before you begin your treatment with vedolizumab injection. If possible, all vaccinations should be brought up to date before beginning treatment. Do not have any vaccinations during your treatment without talking to your doctor. What SPECIAL DIETARY instructions should I follow? Unless your doctor tells you otherwise, continue your normal diet. What should I do IF I FORGET to take a dose? If you miss an appointment to receive a vedolizumab infusion, call your doctor as soon as possible.If you miss a subcutaneous dose of vedolizumab injection, inject it as soon as you remember and then administer every 2 weeks thereafter. What SIDE EFFECTS can this medicine cause? Some side effects can be serious. If you experience any of these symptoms, call your doctor immediately or get emergency medical treatment: ? fever, cough, runny nose, sore throat, chills, aches and other signs of infection ? red or painful skin or sores on your body ? pain during urination ? confusion or memory problems ? loss of balance ? changes in walking or speech ? decreased strength or weakness on one side of your body ? blurred vision or loss of vision ? extreme tiredness ? loss of appetite ? pain in the upper right part of the stomach ? unusual bruising or bleeding ? dark urine ? yellowing of the skin or eyes Vedolizumab may cause other side effects. Call your doctor if you have any unusual problems while taking this medication. If you experience a serious side effect, you or your doctor may send a report to the Food and Drug Administration's (FDA) MedWatch Adverse Event Reporting program online (https://www.fda.gov/Safety/MedWatch) or by phone ( ). What should I know about STORAGE and DISPOSAL of this medication? Store prefilled syringes and pens in the refrigerator. Do not freeze or use any syringes or pens that have been frozen. Keep unused syringes and pens in original packaging until ready to use. Vedolizumab prefilled syringes and pens may be left at room temperature for up to 7 days. Discard unused pens or syringes left at room temperature after 7 days. Keep all medication out of sight and reach of children as many containers are not child-resistant. Always lock safety caps. Place the medication in a safe location - one that is up and away and out of their sight and reach. https://www.upandaway.org Dispose of unneeded medications in a way so that pets, children, and other people cannot take them.Do not flush this medication down the toilet. Use a medicine take-back program. Talk to your pharmacist about take-back programs in your community. Visit the FDA's Safe Disposal of Medicines website h ttps://goo.gl/c4Rm4p for more information. What should I do in case of OVERDOSE? In case of overdose, call the poison control helpline at . Information is also available online at https://www.poisonhelp.org/help. If the victim has collapsed, had a seizure, has trouble breathing, or can't be awakened, immediately call emergency services at 911. What OTHER INFORMATION should I know? Keep all appointments with your doctor. Ask your pharmacist any questions you have about vedolizumab. Keep a written list of all of the prescription and nonprescription (ckvs-ofs-zbnpcwd) medicines, vitamins, minerals, and dietary supplements you are taking. Bring this list with you each time you visit a doctor or if you are admitted to the hospital. You should carry the list with you in case of farhat rgencies. Brand Name(s): ? Entyvio?? This report on medications is for your information only, and is not considered individual patient advice. Because of the changing nature of drug information, please consult your physician or pharmacist about specific clinical use. The [employer] [place] [employer] represents that the information provided hereunder was formulated with a reasonable standard of care, and in conformity with professional standards in the field. The [employer] [place] [employer] makes no representations or warranties, express or implied, including, but not limited to, any implied warranty of merchantability and/or fitness for a particular purpose, with respect to such information and specifically disclaims all such warranties. Users are advised that decisions regarding drug therapy are complex medical decisions requiring the independent, informed decision of an appropriate health career and transition teacher, and the information is provided for informational purposes only. The entire monograph for a drug should be reviewed for a thorough understanding of the drug's actions, uses and side effects. The [employer] [place] [employer] does not endorse or recommend the use of any drug.The information is not a substitute for medical care. AHFS?? Patient Medication Information?. ?? Copyright, 2023. The [employer] [place] [employer]??, [address], [address], [place], [place]. All Rights Reserved. Duplication for commercial use must be authorized by [facility]. Selected Revisions: August 11, 2023. AHFS?? Patient Medication Information?. ?? Copyright, 2024 * Progress Notes - Jonny Gaines MD - 07/12/2025 10:00 AM EST New Patient Visit Verbal consent was obtained to use ambient listening technology to assist in the documentation of the encounter: yes Subjective HPI Ms. Rodas presents today to establish care. GI History: Ulcerative Colitis on Sulfasalazine 1g PO BID. Previous therapies: Azathioprine with documented adverse reaction of pancreatitis. Lialda reportingdiarrhea. Tried Remicade previously and stopped per patient request with hair loss and reported Histoplasmosis infection. Colonoscopy: Originally diagnosed in 20s from colonoscopy; Last colonoscopy 08/2024. Family History: No history of family Social History: History of Present Illness The patient is a 70-year-old female who presents for evaluation of ulcerative colitis. She has been living with ulcerative colitis for approximately four decades, diagnosed in 1985 via colonoscopy. Her initial treatment included Azulfidine and a mild sedative to manage her high anxietylevels, which were believed to exacerbate her condition. However, due to her employment, she was unable to continue the sedative. 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 Despite these side effects, Remicade was effective in controlling her symptoms. She has attempted to use Tremfya injections but found them too expensive and encountered communication issues with the company providing financial assistance. Over the past week, she has experienced a recurrence of symptoms, including mucus in her stool, constipation, and bright red blood in her stool. She has not had a bowel movement in the past three days. She reports that her symptoms typically begin with mucus and constipation, followed by blood and diarrhea, accompanied by bloating, gas, and severe pain. She occasionally experiences constipation, which she manages with prune juice. She has noticed an increase in flares over the past year. A colonoscopy performed in 08/2024 revealed significant scar tissue from a severe flare 10 years ago. Her current medication regimen includes sulfasalazine 500 mg twice daily. Calprotectin 05/2024 was 600s,and now increased this past year roughly double in December/January. 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 The pain began in her early 20s and is constant, although it can be slightly alleviated by walking. She has found some relief through physical t herapy. She also reports joint pain in her hands and knees, has had carpal tunnel syndrome twice, and has undergone joint replacement surgery. She does not experience muscle pain. 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 Her aunts had diverticulitis. No family history of ulcerative colitis or Crohn's disease. Review of Systems A ROS was performed and negative other than what was stated in the HPI. Allergies[1] Current Medications[2] Please refer to the past medical, family, surgical, and social histories that are available in [facility] were updated with any pertinent information today as appropriate. Objective Vitals: 07/12/25 1025 BP: 129/78 Pulse: 65 Resp: 18 Temp: 36.6 ??C (97.9 ??F) SpO2: 95% Physical Exam Vitals reviewed. Constitutional: General: She is not in acute distress. Appearance: Normal appearance. She is not ill-appearing. Cardiovascular: Rate and Rhythm: Normal rate and regular rhythm. Pulses: Normal pulses. Heart sounds: Normal heart sounds. Pulmonary: Effort: Pulmonary effort is normal. Breath sounds: Normal breath sounds. Abdominal: General: Abdomen is flat. Palpations: Abdomen is soft. Musculoskeletal: Right lower leg: No edema. Left lower leg: No edema. Neurological: General: No focal deficit present. Mental Status: She is alert and oriented to person, place, and time. Psychiatric: Mood and Affect: Mood normal. Behavior: Behavior normal. Assessment/Plan Ms. Rodas is an 70 y.o. female with a history of Ulcerative Colitis who presents today to establish care. Diagnosis Plan 1. 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 Difficulty obtaining other biologics with insurance difficulty/cost. Had good clinical response to Remicade, however previously stopped for histo as below. She had acute double in fecal calprotectin to >1000 concerning for acute UC flare while on therapy. - Reports symptoms of intermittent constipation, mucous and bloody BM. Has not had BM in 3 days, but often has 1-3BM daily. - Cannot r/o other causes for worsening proctitis, will repeat infectious testing Plan: - Repeat labs as above - Plan for Entyvio induction, appreciate pharmacy assistance - Will continue Sulfasalazine as bridge (1g BID), will add budesonide if symptoms worsen in the interim - Repeat colonoscopy early 2025 Anemia - History of anemia, concerning for NANDA with intermittent bloody BM - Plan repeat CBC and iron studies; monitor symptoms with therapy change Previous Histoplasmosis Infection - Reports history of infection while on Remicade skin and pulmonary involvement - Plan repeat Histo serum antigen, TB Return to clinic in roughly 3mo Jonny Gaines MD [1] Allergies Allergen Reactions Fluconazole Hives [2] Current Outpatient Medications Medication Sig Dispense Refill amitriptyline (Elavil) 25 MG tablet Take 1 tablet (25 mg) by mouth at night if needed for sleep. 15tablet 11 atorvastatin (Lipitor) 40 MG tablet Take 1 tablet (40 mg) by mouth every night. calcium carbonate (Os-Doug) 1250 (500 Ca) MG chewable tablet metoprolol succinate XL (Toprol-XL) 25 MG 24 hr tablet Take 1 tablet by mouth nightly. omega-3 (Fish Oil) 1000 MG capsule TAKE CAPSULE Daily psyllium (Metamucil) 58.6 % powder Take 1 packet by mouth 3 (three) times a day. rOPINIRole (Requip) 0.5 MG tablet take 1 tablet by mouth at bedtime nightly sertraline (Zoloft) 50 MG tablet Take 1 tablet by mouth daily. sulfaSALAzine (Azulfidine) 500 MG tablet Take 2 tablets (1,000 mg) by mouth 2 (two) times a day. biotin 5 MG capsule TAKE CAPSULE Daily (Patient not taking: Reported on 07/12/2025) bisoprolol (Zebeta) 5 MG tablet Take 1 tablet (5 mg) by mouth 1 (one) time each day. (Patient not taking: Reported on 07/12/2025) clonazePAM (KlonoPIN) 0.5 MG tablet Take 1 tablet (0.5 mg) by mouth every night. (Patient not taking: Reported on 07/12/2025) FLUoxetine (PROzac) 20 MG capsule Take 1 capsule (20 mg) by mouth 1 (one) time each day. (Patient not taking: Reported on 07/12/2025) mesalamine (Lialda) 1.2 g EC tablet Take 1.2 g by mouth 2 (two) times a day. as directed (Patient not taking: Reported on 07/12/2025) sertraline (Zoloft) 100 MG tablet Take 1 tablet (100 mg) by mouth 1 (one) time each day. (Patient not taking: Reported on 07/12/2025) No current facility-administered medications for this visit. Cosigned by Denise Scherer DO at 07/12/2025 11:20 PM EST Associated attestation - Denise Scherer DO - 07/12/2025 11:20 PM EST I saw and evaluated the patient with the resident/fellow. I discussed the case with the resident/fellow and agree with the findings and plan as documented. >40 years Ulcerative Colitis. Colonoscopy photos reviewed from 08/2024, no active disease. However, over the summer started havingblood in stool, cramping. Calpro 1970. Was given prednisone taper which she finished a couple weeksago. Always feels better on steroids, this was no exception. Best drug response was to remicade, but have to stop due to histo infection. Has been maintained onsulfasalazine since. Attempts to start velsipity and tremfya over the summer were unsuccessful due to high copays/out of pocket drug costs. Current symptoms as below. Suspect she likely has active disease, will try to get her on vedolizumab Repeat colonoscopy in next 8 weeks. Calprotectin locally Rule out other causes of symptoms currently as below. If calprotectin elevated/suggested of flare, will start budesonide. Continue sulfasalazine. * Progress Notes - Jose Enrique Garcia, PharmD - 07/12/2025 10:00 AM EST Specialty Pharmacy - Inflammatory Bowel Disease Subjective Lesly Rodas is a 70 y.o. female, who is followed by the specialty pharmacy service for vedolizumab (Entyvio). ICD-10 code K51.90 Clinical justification for prescribed therapy (if needed): needing new biologic therapy Patient has completed subcutaneous injection training: n/a Who is giving the injection: self Patient's described confidence level of injection: (0 = least confident, 10 = most confident): n/a Objective Patient has tried and failed the following therapies: Remicade, AZA, mesalamine, steroids Biologic treatment - TB and vaccine screening: TB assessment: assessment completed within the last year - collected today following OV TB test status: negative quaniferon TB-Gold test Hepatitis B: no evidence of past or current infection Labs reviewed prior to starting therapy: Lab Results Component Value Date WBC 9.8 02/24/2018 HGB 9.9 (L) 02/24/2018 HCT 29.0 (L) 02/24/2018 PLT 149 (L) 02/24/2018 , Lab Results Component Value Date NA 140 02/23/2018 K 4.0 02/23/2018 CL 101 02/23/2018 CREATININE 0.55 (L) 02/23/2018 BUN 18 02/23/2018 GLUCOSE 125 (H) 02/23/2018 CO2 30 (H) 02/23/2018 , Lab Results Component Value Date ALBUMIN 4.1 02/22/2018 ALKPHOS 85 02/22/2018 ALT 52 (H) 02/22/2018 AST 64 (H) 02/22/2018 BILITOT 0.3 02/22/2018 , and No results found for: QUANTIFERON Assessment/Plan Indication, effectiveness, safety and convenience of Lesly Rodas's specialty medication(s) werereviewed today. Drug Utilization Review: Drug-disease precautions: No clinically significant issues identified Drug-drug interactions: No clinically significant issues identified Drug-patient precautions: No clinically significant issues identified Appropriate vaccines completed before initiating therapy: n/a Lab Review: No clinically significant issues identified Appropriate subcutaneous injection administration reviewed today: n/a Education Provided: Education for Anasofyajanis verbalized to patient and provided via clinic folder/thisnote. Discussion with patient included (but was not limited to): dosage, administration, duration, frequency, potential side effects, contraindications, safety and handling precautions, adherence andmissed dose management, drug/drug interactions (if applicable) and storage & disposal. The patient has communicated understanding and had no further questions. Patient's therapy is appropriate to initiate. Prescription for this medication will be routed to [facility]. 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) 07/12/2025 12:21 PM EST Quantiferon TB Gold Plus Lab Routine 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) 07/12/2025 12:21 PM EST Scheduled Orders Name Type Priority Associated Diagnoses Orde r Schedule Histoplasma Galactomannan EIA, Serum (SO) Lab Routine 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) Expected: 07/12/2025 (Approximate), Expires: 01/13/2027 Quantiferon TB Gold Plus Lab Routine 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) Expected: 07/12/2025 (Approximate), Expires: 01/10/2027 Calprotectin, Fecal by Immunoassay Lab Routine 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) Expected: 07/12/2025, Expires: 07/12/2026 Ova and Parasite Exam, Fecal Microbiology Routine 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) Expected: 07/12/2025 (Approximate), Expires: 07/12/2026 Colonoscopy Endoscopy Routine 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) Expected: 07/12/2025, Expires: 01/10/2027 Scheduled Referrals Name Type Priority Associated Diagnoses Orde r Schedule Follow Up GI Outpatient Referral Routine 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 To assess cardiovascular disease risk order high sensitivity CRP (CRPH). [facility] LAB BLOOD ORDERABLES Final R [facility] Performing Organization Address City/[facility]/ZIP Co de Phone Number [facility] [address] [place] [address] * Ferritin (07/12/2025 12:21 PM EST) Ferritin, Serum 80 13 - 150 ng/mL 07/12/2025 2:06 PM EST [facility] Blood Venous blood specimen / Unknown Venipuncture / Unknown 07/12/2025 12:21 PM EST 07/12/2025 12:21 PM EST [facility] LAB BLOOD ORDERABLES Final R esult [facility] [address] [place] [address] * Iron & Total Iron Binding Capacity, Plasma (Includes Transferrin) (07/12/2025 12:21 PM EST) Pathologist [facility] Iron, Plasma 106 30 - 160 ug/dL 07/12/2025 1:59 PM EST [facility] Transferrin, Plasma 243 200 - 360 mg/dL 07/12/2025 1:59 PM EST [facility] Total Iron Binding Capacity, Plasma 304 240 - 450 ug/mL 07/12/2025 1:59 PM EST [facility] Transferrin Saturation 35 14 - 50 % 07/12/2025 1:59 PM EST [facility] Blood Venous blood specimen / Unknown Venipuncture / Unknown 07/12/2025 12:21 PM EST 07/12/2025 12:21 PM EST Denise Scherer DO LAB BLOOD ORDERABLES Final R esult [facility] [address] [place] [address] * (ABNORMAL) CBC and differential (07/12/2025 12:21 PM EST) Pathologist [facility] WBC Count 10.88(H) 3.70 - 10.30 10*3/uL LAB HEMATOLOGY METHOD 07/12/2025 1:19 PM EST [facility] RBC Count 4.08 3.90 - 5.20 10*6/uL LAB HEMATOLOGY METHOD 07/12/2025 1:19 PM EST [facility] HGB 12.4 11.2 - 15.7 g/dL LAB HEMATOLOGY METHOD 07/12/2025 1:19 PM EST [facility] HCT 37.2 34.0 - 45.0 % LAB HEMATOLOGY METHOD 07/12/2025 1:19 PM EST [facility] Platelet Count 278 155 - 369 10*3/uL LAB HEMATOLOGY METHOD 07/12/2025 1:19 PM EST [facility] MCV 91 79 - 98 fL LAB HEMATOLOGY METHOD 07/12/2025 1:19 PM EST [facility] MCH 30.4 26.0 - 32.0 pg LAB HEMATOLOGY METHOD 07/12/2025 1:19 PM [facility] MCHC 33.3 30.7 - 35.5 g/dL LAB HEMATOLOGY METHOD 07/12/2025 1:19 PM [facility] RDW 13.4 11.5 - 14.5 % LAB HEMATOLOGY METHOD 07/12/2025 1:19 PM [facility] MPV 11.0 8.8 - 12.5 fL LAB HEMATOLOGY METHOD 07/12/2025 1:19 PM [facility] nRBC 0.0 <=0.0 per 100 WBCs LAB HEMATOLOGY METHOD 07/12/2025 1:19 PM [facility] Differential Type Automated LAB HEMATOLOGY METHOD 07/12/2025 1:19 PM [facility] Neutrophils % 93 % LAB HEMATOLOGY METHOD 07/12/2025 1:19 PM [facility] Lymphocytes % 5 % LAB HEMATOLOGY METHOD 07/12/2025 1:19 PM [facility] Monocytes % 2 % LAB HEMATOLOGY METHOD 07/12/2025 1:19 PM [facility] Eosinophils % 0 % LAB HEMATOLOGY METHOD 07/12/2025 1:19 PM [facility] Basophils % 0 % LAB HEMATOLOGY METHOD 07/12/2025 1:19 PM [facility] Immature Granulocytes % 0 % LAB HEMATOLOGY METHOD 07/12/2025 1:19 PM [facility] Neutrophils Absolute 10.05(H) 1.60 - 6.10 10*3/uL LAB HEMATOLOGY METHOD 07/12/2025 1:19 PM [facility] Lymphocytes Absolute 0.53(L) 1.20 - 3.90 10*3/uL LAB HEMATOLOGY METHOD 07/12/2025 1:19 PM [facility] Monocytes Absolute 0.22(L) 0.30 - 0.90 10*3/uL LAB HEMATOLOGY METHOD 07/12/2025 1:19 PM [facility] Eosinophils Absolute 0.01 0.00 - 0.50 10*3/uL LAB HEMATOLOGY METHOD 07/12/2025 1:19 PM [facility] Basophils Absolute 0.03 0.00 - 0.10 10*3/uL LAB HEMATOLOGY METHOD 07/12/2025 1:19 PM [facility] Immature Granulocytes Absolute 0.04 0.00 - 0.06 10*3/uL LAB HEMATOLOGY METHOD 07/12/2025 1:19 PM EST [facility] Blood Venous blood specimen / Unknown Venipuncture / Unknown 07/12/2025 12:21 PM EST 07/12/2025 12:21 PM EST Narrative [facility] - 07/12/2025 1:19 PM EST Therapeutic decision making should be based on absolute values, rather than percentages. us Denise Scherer DO LAB BLOOD ORDERABLES Final R esult [facility] [address] [place] [address] * (ABNORMAL) Comprehensive metabolic panel (07/12/2025 12:21 PM EST) Glucose, Plasma 115(H) 74 - 99 mg/dL 07/12/2025 1:59 PM EST [facility] BUN, Plasma 22 8 - 23 mg/dL 07/12/2025 1:59 PM EST [facility] Creatinine, Plasma 0.67 0.60 - 1.10 mg/dL 07/12/2025 1:59 PM EST [facility] BUN/Creatinine Ratio 33 07/12/2025 1:59 PM EST [facility] Sodium, Plasma 140 136 - 145 mmol/L 07/12/2025 1:59 PM EST [facility] Potassium, Plasma 4.1 3.6 - 4.9 mmol/L 07/12/2025 1:59 PM EST [facility] Chloride, Plasma 104 97 - 107 mmol/L 07/12/2025 1:59 PM EST [facility] CO2, Plasma 25 22 - 29 mmol/L 07/12/2025 1:59 PM EST [facility] Anion Gap 11 6 - 16 mmol/L 07/12/2025 1:59 PM EST [facility] Total Calcium, Plasma 9.5 8.9 - 10.2 mg/dL 07/12/2025 1:59 PM EST [facility] Total Protein 6.8 6.3 - 7.9 g/dL 07/12/2025 1:59 PM EST [facility] Albumin, Plasma 4.5 3.5 - 5.2 g/dL 07/12/2025 1:59 PM EST [facility] AST, Plasma 25 10 - 35 U/L 07/12/2025 1:59 PM EST [facility] ALT, Plasma 31 10 - 35 U/L 07/12/2025 1:59 PM EST [facility] Alkaline Phosphatase, Plasma 78 46 - 142 U/L 07/12/2025 1:59 PM EST [facility] Total Bilirubin, Plasma 0.3 0.2 - 1.1 mg/dL 07/12/2025 1:59 PM EST [facility] eGFRcr 94.7 mL/min/1.7 3m*2 07/12/2025 1:59 PM EST [facility] Comment:Reported eGFRcr in m L/min/1.73m2 is based the CKD-EPI 2020 equation that does not use a race coefficient. 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
--- OUTSIDE RECORDS SUMMARY | 2025-07-13 12:50 | XMS_ITS | Clinical Summary ---
[facility] Address [address] [place] [address] Care Team Providers Care Technical Marketing Consultant Name Role Phone Maxi Walker MD Primary [...] Done Comments DXA SCAN 1956 MAMMOGRAM 1996 TDAP/TD VACCINES (1 - Tdap) 10/04/1996 10/03/1996 COLOGUARD 2001 COLON CANCER SCREENING 5 YEA R SIGMOIDOSCOPY 2001 COLONOSCOPY [address] CANCER SCREENING 2001 CT COLONOGRAPHY 2001 FECAL OCCULT BLOOD TEST 2001 FIT Testing (1 year) 2001 Pneumococcal Vaccine 50+ (1 of 1 - PCV) 2006 ANNUAL PHYSICAL 10/10/2023 HEPATITIS C SCREENING 10/10/2023 INFLUENZA VACCINE 02/25/2025 04/17/2021, , 06/02/2018, Additional history exists COVID-19 Vaccine (2024-08 6 season) 2025 07/30/2021, 10/07/2020, 09/17/2020 ZOSTER VACCINE Completed 09/08/2018, 07/07/2018 Insurance [facility]IC[facility]VANT[facility] Care Teams Technical Marketing Consultant Relationship Specialty Start Date End Date Maxi Walker MD PCP - General Editor Continuity And Script 06/17/16
--- OUTSIDE RECORDS SUMMARY | 2025-07-13 12:50 | XMS_ITS | Encounter Summary ---
Author Organization Healthcare Address [address] [place] [address] Care Team Providers Care Con[employer] Fabricating Supervisor Name Role Phone Florentin Cochran MD Primary Care Provider [phone] Encounter Details Date Type Department Care Team (Late st Contact Info) Description 07/12/2025 Results [facility] [address] [place] [address] Denise Scherer L, DO [address] [place] [address] Social History Tobacco Use Types Packs/Day Years [...] on file documented as of this encounter Functional Status * Over the [...] Not difficult at all 07/12/2025 10:38 AM Britta Rodriguez CNA documented as of this encounter Plan of Treatment Upcoming Encounters Date Type Department Care Team (Late st Contact Info) Description 10/11/2025 1:20 PM EDT Office Visit [facility] Medicine Specialties [address] [place] [address] Denise Scherer L, DO [address] [place] [address] documented as of this encounter Visit Diagnoses Not on filedocumented in this encounter Additional Health Concerns Assessment Noted Time PHQ-9 Depression Total Score: 0 07/12/20 25 10:38 AM EST A fall risk assessment has been complete d for the patient 07/12/2025 10:39 AM EST A Body Mass Index follow-up plan has been documented for the patient 07/12/2025 11:20 PM EST documented as of this encounter Care Teams Con[employer] Supervisor Relationship Specialty Start Date End Date Florentin Cochran MD [address] [place] [address] PCP - General 12/08/20 documented as of this encounter
--- OUTSIDE RECORDS SUMMARY | 2025-07-13 12:50 | XMS_ITS | Clinical Summary ---
Author Organization [facility] Address [address] [place] [address] Care Team Providers Care Hyperion Developer Name Role Phone Florentin Cochran MD Primary Care Provider [phone] Allergies Active Allergy Reactions Criticality Noted Date Comments Fluconazole Hives Medium 06/11/2022 Medications atorvastatin (Lipitor) 40 MG tablet Take 1 tablet (40 mg) by mouth every night. 2 Active omega-3 (Fish Oil) 1000 MG capsule TAKE CAPSULE Daily 0 Active calcium carbonate (Os-Doug) 1250 (500 Ca) MG chewable tablet 0 Active psyllium (Metamucil) 58.6 % powder Take 1 packet by mouth 3 (three) times a day. Active sulfaSALAzine (Azulfidine) 500 MG tablet Take 2 tablets (1,000 mg) by mouth 2 (two) times a day. Active amitriptyline (Elavil) 25 MG tabletIndicatio ns:Intractable chronic migraine with aura and without status migrainosus Take 1 tablet (25 mg) by mouth at night if needed for sleep. 15 tablet 11 4 Active metoprolol succinate XL (Toprol-XL) 25 MG 24 hr tablet Take 1 tablet by mouth nightly. 5 Active rOPINIRole (Requip) 0.5 MG tablet take 1 tablet by mouth at bedtime nightly 5 Active sertraline (Zoloft) 50 MG tablet Take 1 tablet by mouth daily. 5 Active FLUoxetine (PROzac) 20 MG capsule Take 1 capsule (20 mg) by mouth 1 (one) time each day. 2 07/12/20 25 Discontinue d(Per Patient Report) clonazePAM (KlonoPIN) 0.5 MG tablet Take 1 tablet (0.5 mg) by mouth every night. 2 07/12/20 25 Discontinue d(Per Patient Report) mesalamine (Lialda) 1.2 g EC tablet Take 1.2 g by mouth 2 (two) times a day. as directed 1 07/12/20 25 Discontinue d(Per Patient Report) bisoprolol (Zebeta) 5 MG tablet Take 1 tablet (5 mg) by mouth 1 (one) time each day. 2 07/12/20 25 Discontinue d(Per Patient Report) biotin 5 MG capsule TAKE CAPSULE Daily 0 07/12/20 25 Discontinue d(Per Patient Report) sertraline (Zoloft) 100 MG tablet Take 1 tablet (100 mg) by mouth 1 (one) time each day. 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) (Primary Dx) 07/12/2025 Travel from Last 3 Months Immunizations Immunization Administration Dates Next Due Hep A / Hep B 12/01/2018,07/02/2018,06/02/2018 Influenza, injectable, quadr ivalent, preservative free 04/24/2020,06/02/2018 Influenza, seasonal, injectable 04/17/2021,04/27 Influenza, seasonal, injecta ble, preservative free 05/17/2016 Novel [id number] 06/28/2009 TD (adult), 2 Lf tetanus tox oid, preservative free, adsorbed 10/03/1996 Zoster, Recombinant 09/08/2018,07/07/2018 Family History Medical History Relation Name Comments [...] cm (5' 5 ) 07/12/2025 10:25 AM EST Body Mass Index 24.95 07/12/2025 10:25 AM EST Plan of Treatment Upcoming Encounters Date Type Department Care Team (Late st Contact Info) Description 10/11/2025 1:20 PM EDT Office Visit [facility] Specialties [address] [place] [address] Denise Scherer, DO [address] [place] [address] Health Maintenance Due Date Last Done Comments [facility]-Bone Density Scan 1956 [facility]-Hepatitis C Screening 1956 [facility]-Medicare Annual Wellness (AWV) 1955 [facility]-/Child/Adol SDOH Screenings 1956 [facility]- SDOH Screenings 1974 [facility]-Adult SDOH Screenings 1974 [facility]-DTaP,Tdap,and Td Vaccines (1 - Tdap) 10/04/1996 10/03/1996 CT Colonography 2001 Colonoscopy 2001 FIT-DNA 2001 FIT 2001 FOBT 2001 Sigmoidoscopy 2001 [facility]-Colorectal Cancer Screening 2001 [facility]-Breast Cancer Screening 2006 [facility]-Pneumococcal Vaccine: 50+ Years (1 of 1 - PCV) 2006 [id number] Vaccine (4 - 2024- season) 2025 07/30/2021, 10/07/2020, 09/17/2020 [facility]-Influenza Vaccine (#1) 03/28/202504/17, 04/24/2020, 06/02/2018, Additional history exists [facility]-Depression Screening 07/12/2026 07/12/2025, 06/27 [facility]-RSV Vaccine: 60+ Years or (1 - 1-dose 75+ series) 2031 [facility]-Zoster Vaccines Completed 09/08/2018, 8 [facility]-Hepatitis A Vaccines Aged Out 019, 07/02/2018, 06/02/2018 No longer eligible based on patient's age to complete this topic HPV Vaccines (No Doses Required) Completed [facility]-HIB Vaccines Aged Out No longer e ligible based on patient's age to complete this topic [facility]-IPV Vaccines Aged Out No longer e ligible based on patient's age to complete this topic [facility]-Rotavirus Vaccines Aged Out No lo nger eligible based on patient's age to complete this topic Procedures Procedure Name Priority Date/Time Associated Diagnosis Comments COMPREHENSIVE METABOLIC PANEL, PLASMA Routine 07/12/2025 12:21 PM EST 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) CBC WITH AUTO DIFFERENTIAL Routine 07/12/2025 12:21 PM EST 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) IRON & TOTAL IRON BINDING CAPACITY, PLASMA (INCLUDES TRANSFERRIN) Routine 07/12/2025 12:21 PM EST 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) FERRITIN, SERUM Routine 07/12/2025 12:21 PM EST 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) C-REACTIVE PROTEIN, PLASMA Routine 07/12/2025 12:21 PM EST 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) from Last 3 Months Results * Iron & Total Iron Binding Capacity, Plasma (Includes Transferrin) (07/12/2025 12:21 PM EST) Iron, Plasma 106 30 - 160 ug/dL 07/12/2025 1:59 PM EST [facility] Transferrin, Plasma 243 200 - 360 mg/dL 07/12/2025 1:59 PM EST [facility] Total Iron Binding Capacity, Plasma 304 240 - 450 ug/mL 07/12/2025 1:59 PM EST [facility] Transferrin Saturation 35 14 - 50 % 07/12/2025 1:59 PM EST [facility] Blood Venous blood specimen / Unknown Venipuncture / Unknown 07/12/2025 12:21 PM EST 07/12/2025 12:21 PM EST Denise Scherer DO LAB BLOOD ORDERABLES Final R esult [facility] [address] [place] [address] * (ABNORMAL) CBC and differential (07/12/2025 12:21 PM EST) WBC Count 10.88(H) 3.70 - 10.30 10*3/uL LAB HEMATOLOGY METHOD 07/12/2025 1:19 PM EST [facility] RBC Count 4.08 3.90 - 5.20 10*6/uL LAB HEMATOLOGY METHOD 07/12/2025 1:19 PM EST [facility] HGB 12.4 11.2 - 15.7 g/dL LAB HEMATOLOGY METHOD 07/12/2025 1:19 PM EST [facility] HCT 37.2 34.0 - 45.0 % LAB HEMATOLOGY METHOD 07/12/2025 1:19 PM EST [facility] Platelet Count 278 155 - 369 10*3/uL LAB HEMATOLOGY METHOD 07/12/2025 1:19 PM EST [facility] MCV 91 79 - 98 fL LAB HEMATOLOGY METHOD 07/12/2025 1:19 PM EST [facility] MCH 30.4 26.0 - 32.0 pg LAB HEMATOLOGY METHOD 07/12/2025 1:19 PM EST [facility] MCHC 33.3 30.7 - 35.5 g/dL LAB HEMATOLOGY METHOD 07/12/2025 1:19 PM EST [facility] RDW 13.4 11.5 - 14.5 % LAB HEMATOLOGY METHOD 07/12/2025 1:19 PM EST [facility] MPV 11.0 8.8 - 12.5 fL LAB HEMATOLOGY METHOD 07/12/2025 1:19 PM EST [facility] nRBC 0.0 <=0.0 per 100 WBCs LAB HEMATOLOGY METHOD 07/12/2025 1:19 PM EST [facility] Differential Type Automated LAB HEMATOLOGY METHOD 07/12/2025 1:19 PM EST [facility] Neutrophils % 93 % LAB HEMATOLOGY METHOD 07/12/2025 1:19 PM EST [facility] Lymphocytes % 5 % LAB HEMATOLOGY METHOD 07/12/2025 1:19 PM EST [facility] Monocytes % 2 % LAB HEMATOLOGY METHOD 07/12/2025 1:19 PM EST [facility] Eosinophils % 0 % LAB HEMATOLOGY METHOD 07/12/2025 1:19 PM EST [facility] Basophils % 0 % LAB HEMATOLOGY METHOD 07/12/2025 1:19 PM EST [facility] Immature Granulocytes % 0 % LAB HEMATOLOGY METHOD 07/12/2025 1:19 PM EST [facility] Neutrophils Absolute 10.05(H) 1.60 - 6.10 10*3/uL LAB HEMATOLOGY METHOD 07/12/2025 1:19 PM EST [facility] Lymphocytes Absolute 0.53(L) 1.20 - 3.90 10*3/uL LAB HEMATOLOGY METHOD 07/12/2025 1:19 PM EST [facility] Monocytes Absolute 0.22(L) 0.30 - 0.90 10*3/uL LAB HEMATOLOGY METHOD 07/12/2025 1:19 PM EST [facility] Eosinophils Absolute 0.01 0.00 - 0.50 10*3/uL LAB HEMATOLOGY METHOD 07/12/2025 1:19 PM EST [facility] Basophils Absolute 0.03 0.00 - 0.10 10*3/uL LAB HEMATOLOGY METHOD 07/12/2025 1:19 PM EST [facility] Immature Granulocytes Absolute 0.04 0.00 - 0.06 10*3/uL LAB HEMATOLOGY METHOD 07/12/2025 1:19 PM EST [facility] Blood Venous blood specimen / Unknown Venipuncture / Unknown 07/12/2025 12:21 PM EST 07/12/2025 12:21 PM EST Narrative [facility] - 07/12/2025 1:19 PM EST Therapeutic decision making should be based on absolute values, rather than percentages. Denise Scherer DO LAB BLOOD ORDERABLES Final R esult [facility] [address] [place] [address] * C-reactive protein (07/12/2025 12:21 PM EST) CRP, Plasma <3.0 <=8.0 mg/L 07/12/2025 1:59 PM EST [facility] Blood Venous blood specimen / Unknown Venipuncture / Unknown 07/12/2025 12:21 PM EST 07/12/2025 12:21 PM EST Narrative [facility] - 07/12/2025 1:59 PM EST This CRP test is appropriate for assessment of infection, systemic inflammation and/or tissue injury. To assess cardiovascular disease risk order high sensitivity CRP (CRPH). [employer] DO LAB BLOOD ORDERABLES Final R esult [facility] [address] [place] [address] * Ferritin (07/12/2025 12:21 PM EST) Ferritin, Serum 80 13 - 150 ng/mL 07/12/2025 2:06 PM EST [facility] Blood Venous blood specimen / Unknown Venipuncture / Unknown 07/12/2025 12:21 PM EST 07/12/2025 12:21 PM EST [employer] [facility] [place] LAB BLOOD ORDERABLES Final R esult Performing Organization Address City/[facility]/ZIP Co de Phone Number [facility] [address] [place] [address] * (ABNORMAL) Comprehensive metabolic panel (07/12/2025 12:21 PM EST) Glucose, Plasma 115(H) 74 - 99 mg/dL 07/12/2025 1:59 PM EST [facility] BUN, Plasma 22 8 - 23 mg/dL 07/12/2025 1:59 PM EST [facility] Creatinine, Plasma 0.67 0.60 - 1.10 mg/dL 07/12/2025 1:59 PM EST [facility] BUN/Creatinine Ratio 33 07/12/2025 1:59 PM EST [facility] Sodium, Plasma 140 136 - 145 mmol/L 07/12/2025 1:59 PM EST [facility] Potassium, Plasma 4.1 3.6 - 4.9 mmol/L 07/12/2025 1:59 PM EST [facility] Chloride, Plasma 104 97 - 107 mmol/L 07/12/2025 1:59 PM EST [facility] CO2, Plasma 25 22 - 29 mmol/L 07/12/2025 1:59 PM EST [facility] Anion Gap 11 6 - 16 mmol/L 07/12/2025 1:59 PM EST [facility] Total Calcium, Plasma 9.5 8.9 - 10.2 mg/dL 07/12/2025 1:59 PM EST [facility] Total Protein 6.8 6.3 - 7.9 g/dL 07/12/2025 1:59 PM EST [facility] Albumin, Plasma 4.5 3.5 - 5.2 g/dL 07/12/2025 1:59 PM EST [facility] AST, Plasma 25 10 - 35 U/L 07/12/2025 1:59 PM EST [facility] ALT, Plasma 31 10 - 35 U/L 07/12/2025 1:59 PM EST [facility] Alkaline Phosphatase, Plasma 78 46 - 142 U/L 07/12/2025 1:59 PM EST [facility] Total Bilirubin, Plasma 0.3 0.2 - 1.1 mg/dL 07/12/2025 1:59 PM EST [facility] eGFRcr 94.7 mL/min/1.7 3m*2 07/12/2025 1:59 PM EST [facility] Comment:Reported eGFRcr in m L/min/1.73m2 is based the CKD-EPI 2020 equation that does not use a race coefficient. Blood Venous blood specimen / Unknown Venipuncture / Unknown 07/12/2025 12:21 PM EST 07/12/2025 12:21 PM EST us Denise Scherer DO LAB BLOOD ORDERABLES Final R esult [facility] [address] [place] [address] from Last 3 Months Insurance [employer] Care Teams Hyperion Developer Relationship Specialty Start Date End Date Florentin Cochran MD [address] [facility] [place] [address] PCP - General 12/08/20
--- OUTSIDE RECORDS SUMMARY | 2025-07-13 12:50 | XMS_ITS | Encounter Summary ---
Author Organization Healthcare Address [address] [place] [address] Care Team Providers Care Director Of Financial Planning Name Role Phone Florentin Cochran MD Primary Care Provider [phone] Reason for Visit * Reason Onset Date Comments Entyvio start 07/12/2025 Encounter Details Date Type Department Care Team (Late st Contact Info) Description 07/12/2025 Telephone [facility] Special[facility] [address], [address] [place] [address] oJse Enrique Garcia, PharmD None None Entyvio start Social History Tobacco Use Types Packs/Day Years [...] Description 10/11/2025 1:20 PM EDT Office Visit [facility] Medicine Specialties [address], [address] [place] [address] Denise Scherer L, DO [address] [place] [address] documented as of this encounter Visit Diagnoses [...] documented as of this encounter Care Teams Director Of Financial Planning Relationship Specialty Start Date End Date Florentin Cochran MD [address] [place] [address] PCP - General 12/08/20 documented as of this encounter
--- OUTSIDE RECORDS SUMMARY | 2025-07-13 12:50 | XMS_ITS | Encounter Summary ---
Author Organization [facility] Address [address] [place] [address] Care Team Providers Care Medical Scheduler Name Role Phone Florentin Cochran MD Primary Care Provider [phone] Encounter Details Date Type Department Care Team (Late st Contact Info) Description 03/18/2019 Abstract [facility] [address] [place] [address] Dental, Provider, [address] [address] Social History Tobacco Use Types Packs/Day Years Used Date Smoking Tobacco: Never Assessed Comments Unknown Sex and Gender Information Value Date Recorded Sex Assigned at Not on file Legal Sex Female 8:34 PM EDT Gender Identity Not on file Sexual Orientation Not on file documented as of this encounter Plan of Treatment Upcoming Encounters Date Type Department Care Team (Late Contact Info) Description 10/11/2025 1:20 PM EDT Office Visit [facility] Medicine Specialties [address], [address] [place] [address] Denise Scherer, DO [address] [place] [address] documented as of this encounter Visit Diagnoses Not on filedocumented in this encounter Care Teams Medical Scheduler Relationship Specialty Start Date End Date Florentin Cochran MD [address] [place] [id number] PCP - General 12/08/20 documented as of this encounter
--- OUTSIDE RECORDS SUMMARY | 2025-07-13 12:50 | XMS_ITS | Encounter Summary ---
Author Organization Healthcare Address [address] [place] [address] Care Team Providers Care Hair Worker Name Role Phone Florentin Cochran MD Primary Care Provider [phone] Encounter Details Date Type Department Care Team (Latest Contact Info) Description 07/12/2025 Travel Social History Tobacco Use Types Packs/Day Years [...] Description 10/11/2025 1:20 PM EDT Office Visit [facility]ties [address] [place] [address] Denise Scherer L, DO [address] [place] [address] documented as of this encounter Visit Diagnoses Not on filedocumented in this encounter Additional Health Concerns Assessment Noted Time PHQ-9 Depression Total Score: 0 07/12/20 25 10:38 AM MADDIE Jolly fall risk assessment has been complete d for the patient 07/12/2025 10:39 AM EST A Body Mass Index follow-up plan has been documented for the patient 07/12/2025 11:20 PM EST documented as of this encounter Care Teams Hair Worker Relationship Specialty Start Date End Date Florentin Cochran MD [address] [phone] PCP - General 12/08/20 documented as of this encounter
--- OUTSIDE RECORDS SUMMARY | 2025-07-13 12:50 | XMS_ITS | Encounter Summary ---
Author Organization Healthcare Address [address] [place] [address] Care Team Providers Care Engineering Design Manager Name Role Phone Florentin Cochran MD Primary Care Provider [phone] Encounter Details Date Type Department Care Team (Late st Contact Info) Description 07/12/2025 Orders Only [facility] Medicine Specialties [address], [address] [place] [address] Denise Scherer L, DO [address] [place] [address] Ulcerative colitis without complications, unspecified location (CMS/HCC) (Primary Dx) Social History Tobacco Use Types Packs/Day Years [...] Description 10/11/2025 1:20 PM EDT Office Visit [facility] Medicine Specialties [address] [place] [address] Denise Scherer, DO [address] [place] [address] documented as of this encounter Visit Diagnoses Diagnosis Ulcerative colitis without complications, unspecified location (CMS/[facility])- Primary documented in this encounter Additional Health Concerns Assessment Noted Time PHQ-9 Depression Total Score: 0 07/12/20 10:38 AM EST A fall risk assessment has been complete d for the patient 07/12/2025 10:39 AM EST A Body Mass Index follow-up plan has been documented for the patient 07/12/2025 11:20 PM EST documented as of this encounter Care Teams Engineering Design Manager Relationship Specialty Start Date End Date Florentin Cochran MD [address] [place] [id number] PCP - General 12/08/20 documented as of this encounter
--- OUTSIDE RECORDS SUMMARY | 2025-07-13 12:50 | XMS_ITS | Clinical Summary ---
Author Organization [facility] Address [address] [place] [address] Phone Care Team Providers Care Chinchilla Farmer Name Role Phone Gunnar BELL, Fiordaliza Cam [ ] Conditions or Problems Problem Name Problem Code Onset Date Status Entry Date Provider Comment Standard Description Annotate Myalgia 28921274 (SNOMED CT) 09/11 Active 09/11 Fiordaliza Maher MD Muscle pain Arthralgias 29421192 (SNOMED CT) 09/11 Active 09/11 Fiordaliza Maher MD Pain of joint Elevated liver enzymes 144067030 (SNOMED CT) 09/03 Active 09/20 Fiordaliza Maher MD Liver enzymes outside reference range Candidiasis of skin 559042289 (SNOMED CT) 09/01 Active 09/01 Carla Rafat Candidiasis of skin and nails 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 704421581 (SNOMED CT) 08/26 Active 08/30 Carla Rafat Childhood granulomatous periorificial dermatitis Pulmonary infiltrate- fibronodular 17100492 (SNOMED CT) 08/26 Resolved 08/26 Fiordaliza Maher MD Disorder of lung Pulmonary infiltrates- reticulonodu lar, acute vs chronic 758713375 (SNOMED CT) 08/26 Active 08/30 Fiordaliza Maher MD Asthmatic pulmonary eosinophilia 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 050714995 (SNOMED CT) 08/26 Inactive 08/30 Fiordaliza Maher MD Granulomatous disorder Pulmonary infiltrate- fibronodular 83940854 (SNOMED CT) 08/26 Removed 08/26 Fiordaliza Maher MD Disorder of lung Alopecia 42019788 (SNOMED CT) 08/17 Active 08/17 Fiordaliza Maher MD Alopecia Pruritus 488980501 (SNOMED CT) 08/17 Active 08/17 Fiordaliza Maher MD Pruritic disorder Chest pain, intermittent 61159278 (SNOMED CT) 08/17 Active 08/17 Fiordaliza Maher MD Chest pain Ulcerative colitis 53566142 (SNOMED CT) 08/17 Active 08/17 Fiordaliza Maher MD Ulcerative colitis agency sales management assistant 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 654423670 (SNOMED CT) 08/17 Active 08/17 Fiordaliza Maher MD Drug therapy finding Histoplasma capsulatum, without mention of manifestatio n 46777107 (SNOMED CT) 08/17 Active 08/17 Fiordaliza Maher MD 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 09/03 METHYLPREDNISOLONE 93919045334 Fiordaliza Maher MD FLUCONAZOLE 200 MG TABS 2 daily for 10 days 08/17 FLUCONAZOLE 76813096085 Fiordaliza Maher MD REMICADE 100 MG SOLR every 8 weeks 08/17 INFLIXIMAB 17362065847 Fiordaliza Maher MD METHYLPREDNISOLONE 4 MG TABS For 3 additional days. 09/03 METHYLPREDNISOLONE 17645886719 Fiordaliza Maher MD METHYLPREDNISOLONE 4 MG TABS For 3 additional days. 09/03 METHYLPREDNISOLONE 83256473074 Domonique Shileds FLUCONAZOLE 200 MG TABS 2 daily for 10 days 08/17 FLUCONAZOLE 76466749922 Fiordaliza Maher MD TYLENOL 325 MG CAPS Take/use as needed. 08/17 ACETAMINOPHEN 17174106439 Megan Morguelan EQL FISH OIL 1000 MG CAPS by mouth twice daily 08/17 OMEGA-3 FATTY ACIDS 74931053399 Meganjuan miguel Robertselan AMOXICILLIN 500 MG TABS by mouth every 6 hrs 08/17 AMOXICILLIN 95702946541 Meganjuan miguel Robertselan LIALDA 1.2 GM TBEC 2 tabs by mouth twice daily 08/17 MESALAMINE 10927104679 Megan Morguelan REMICADE 100 MG SOLR every 8 weeks 08/17 INFLIXIMAB [id number] Megan Morguelan Medications Administered No information available. [...] Procedures Code Procedure Name Date Entry Date CPT-28573 CMP CPT-cbcwmd CBC W/Manual Diff. 5 CPT-85539 C- reactive protein CPT-96506 Sedimentation Rate (ESR) 201 01/26/15 [id number], [id number] CPK CPT-90086 CMP [id number] CBC with Differential 2016 CPT-87155 C- reactive protein CPT-59875 Sedimentation Rate (ESR) 201 01/26/16 CPT-36459 CT Chest without contrast 13/08/15 CPT-89480 CMP CPT-98160 CT Chest w/o contrast 08/26 25843 Hepatitis C Atb: (ICD 10 Code: Z11.59) 20 12/06/29 CPT-cbcwmd CBC W/Manual Diff. 1 CPT-98808 CMP CPT-63545 C- reactive protein CPT-44816 Sedimentation Rate (ESR) 201 01/05/21 CPT-44515 Cryptococcus Antigen Serum 2 CPT-LAB Other CPT-sl STAT Labs CPT: fungblcx Fungal Blood cultures in mariana isolator tubes CPT-80851 Histoplasmosis Urinary AG 20 12/06/21 CPT-15953 Blastomyces Urinary Antigen CPT-17314 X-Ray, Chest, PA & Lateral 2 Vital [...]
[2025-07-16 16:47] LABS: Calprotectin, Fecal 638 ug/g (0-120)
== END 2025-07-13 23:59 | disposition home or self-care (01) ==
LOC: LAB 11:15
PROVIDERS: PCP Family Medicine; Visit Provider Internal Medicine Gastroenterology
DX: K51.30 Ulcerative (chronic) rectosigmoiditis without complications (principal)
CPT/HCPCS: 83993